=== PATIENT | female | born 1945 | race Caucasian/White ===

== ENCOUNTER → 2016-02-28 | Outpatient (CLI) | payer OTHER ==
[~2016-02-28] MED LIST: BUPR150T7 PO; DABI150C PO; EPP3/2 IM; METO-551 PO; MONT1TAB3 PO; PRLSR20 PO; THY30 PO
[2016-02-28 13:57] LABS: BASO % 0.4 %; BASO ABS # 0.02 K/uL (0-0.2); COMPLETE YES; EOS % 1.3 %; HEMATOCRIT 41.2 % (37-47); IG% 0.2 %; LYMPH % 35.5 %; LYMPH ABS # 1.85 K/uL (1.2-3.4); MEAN CORPUSCULAR HEMOGLOBIN 31.3 pg (25-34); MEAN PLATELET VOLUME 9.5 fL (7.4-10.4); MONO % 10.6 %; PLATELET COUNT 291 K/uL (130-400); RED BLOOD COUNT 4.48 M/uL (4.2-5.4); WHITE BLOOD COUNT 5.21 K/uL (4.8-10.8)
[2016-02-28 14:22] LABS: ALT/SGPT 20 U/L (12-78); AST/SGOT 13 U/L (15-37); BLOOD UREA NITROGEN 12 mg/dl (7-18); CARBON DIOXIDE 31 mmol/L (21-32); CHLORIDE 105 mmol/L (98-107); CREATININE 0.78 mg/dl (0.60-1.20); GLUCOSE 93 mg/dl (70-99); POTASSIUM 3.8 mmol/L (3.5-5.1); SODIUM 143 mmol/L (136-145)
[2016-02-28 14:33] LABS: ALB/GLOB RATIO 1.1 (0.9-2); ALKALINE PHOSPHATASE 78 U/L (45-117); CHOLESTEROL 168 mg/dl (0-200); CHOLESTEROL/HDL RATIO 2.6; HDL CHOLESTEROL 65 mg/dl; LDL CHOLESTEROL CALCULATED 87 mg/dl; TRIGLYCERIDES 78 mg/dl (0-150); VERY LOW DENSITY LIPOPROT CALC 16 mg/dl
== END | disposition home or self-care (01) ==
LOC: C.LAB 13:35
PROVIDERS: ATTEND Nurse Practitioner Family
DX: E03.9 Hypothyroidism, unspecified (principal); I10 Essential (primary) hypertension; I48.91 Unspecified atrial fibrillation; Z13.220 Encounter for screening for lipoid disorders

== ENCOUNTER → 2016-06-25 | Outpatient (CLI) | payer OTHER | END | disposition home or self-care (01) | LOC: C.LAB1850 16:54 | PROVIDERS: ATTEND Nurse Practitioner Family | DX: E03.9 Hypothyroidism, unspecified (principal) ==

== ENCOUNTER → 2017-01-03 | Outpatient (CLI) | payer OTHER ==
[2017-01-03 15:05] LABS: BASO % 0.6 %; BASO ABS # 0.04 K/uL (0-0.2); COMPLETE YES; EOS % 1.2 %; HEMATOCRIT 41.2 % (37-47); IG% 0.2 %; LYMPH % 33.8 %; LYMPH ABS # 2.21 K/uL (1.2-3.4); MEAN CORPUSCULAR HEMOGLOBIN 32.2 pg (25-34); MEAN CORPUSCULAR HGB CONC 33.5 g/dl (32-36); MEAN PLATELET VOLUME 9.4 fL (7.4-10.4); MONO % 8.3 %; NEUT % 55.9 %; PLATELET COUNT 332 K/uL (130-400); RED BLOOD COUNT 4.29 M/uL (4.2-5.4); WHITE BLOOD COUNT 6.54 K/uL (4.8-10.8)
[2017-01-03 15:31] LABS: ALB/GLOB RATIO 0.9 (0.9-2); ALT/SGPT 19 U/L (12-78); AST/SGOT 13 U/L (15-37); BLOOD UREA NITROGEN 15 mg/dl (7-18); BUN/CREATININE RATIO 18.9 (10-20); CALCIUM 9.3 mg/dl (8.5-10.1); CARBON DIOXIDE 29 mmol/L (21-32); CHLORIDE 102 mmol/L (98-107); CREATININE 0.78 mg/dl (0.60-1.20); GLUCOSE 109 mg/dl (70-99); POTASSIUM 4.1 mmol/L (3.5-5.1); SODIUM 139 mmol/L (136-145)
[2017-01-03 15:44] LABS: ALKALINE PHOSPHATASE 107 U/L (45-117)
== END | disposition home or self-care (01) ==
LOC: C.LAB1850 14:24
PROVIDERS: ATTEND Nurse Practitioner Family
DX: E03.9 Hypothyroidism, unspecified (principal); F32.9 Major depressive disorder, single episode, unspecified; I48.91 Unspecified atrial fibrillation; K21.9 Gastro-esophageal reflux disease without esophagitis; J30.9 Allergic rhinitis, unspecified; I10 Essential (primary) hypertension; E55.9 Vitamin D deficiency, unspecified

== ENCOUNTER → 2017-01-03 | Outpatient (CLI) | payer OTHER ==
--- NOTE | 2017-01-03 15:12 | DIAGNOSTIC IMAGING REPORT ---
L-SPINE MIN 4 VIEWS ROUTINE CLINICAL HISTORY: 71 years-old Female presenting with M54.5 Lower back [id number]. TECHNIQUE: Frontal, bilateral oblique, lateral, and coned in lateral views of the lumbar spine were obtained. COMPARISON: Correlation made to 09/22/2006 CT. FINDINGS: Levoscoliotic curvature of the lumbar spine centered at L2-3. Otherwise normal lumbar lordosis. Vertebral bodies maintain normal height. Intervertebral disc spaces grossly maintained allowing for eccentric height loss secondary to scoliosis. Mild multilevel degenerative changes. No radiographic evidence of fracture or subluxation. Osseous neural foraminal narrowing is difficult to assess for by radiograph secondary to scoliosis. Nonobstructive bowel gas pattern. IMPRESSION: Levoscoliotic curvature of the lumbar spine. Electronically signed by: Ravindra Bailey M.D. 01/03/2017 3:10 PM Dictated Date/Time: 01/03/2017 3:07 PM
== END | disposition home or self-care (01) ==
LOC: C.RAD1850 14:42
PROVIDERS: ATTEND Nurse Practitioner Family
DX: M54.5 Low back pain (principal); M41.9 Scoliosis, unspecified

== ENCOUNTER → 2017-01-19 | Outpatient (CLI) | payer OTHER ==
--- NOTE | 2017-01-19 07:56 | DIAGNOSTIC IMAGING REPORT ---
LUMBAR SPINE W/O CONTRAST CLINICAL HISTORY: 71 years-old Female presenting with M54.5 Low back [id number]. TECHNIQUE: Multisequence, multiplanar MR imaging of the lumbar spine was performed without the use of intravenous contrast. IV contrast: None. COMPARISON: Plain radiographs of the lumbar spine from 01/03/2017. FINDINGS: Localizer images: Unremarkable. Levoscoliotic curvature of the lumbar spine centered at L2-3. Slightly exaggerated lumbar lordosis. Mild vertebral body height loss anteriorly at T12, which is slightly progressed since the prior radiograph. The T12 vertebral body demonstrates small amount of fluid associated with the superior endplate depression as well as diffuse bony edema throughout the vertebral body. The remainder of the vertebral bodies demonstrate normal height, alignment, bone marrow signal intensity. Prominent Schmorl's node noted at the superior endplate of L1. Recommend 3 disc noted at L5-S1 with transitional lumbosacral anatomy. Please refer to the images for labeling of the levels. Diffuse intervertebral disc desiccation noted. Minimal fluid within the L1-2 disc space evident without adjacent endplate edema, likely degenerative in etiology. Multilevel degenerative changes further detailed below: L1 to: Mild facet arthropathy with mild right neural foraminal narrowing. No significant spinal canal narrowing. L2-3: Mild facet arthropathy with moderate right neural foraminal narrowing. No second spinal canal narrowing. L3-4: Facet arthropathy and ligamentum flavum thickening result in severe right and moderate left neural foraminal narrowing. L4-5: Disc bulge, facet arthropathy, and ligamentum flavum thickening result in near complete circumferential effacement of CSF. Moderate right and severe left neural foraminal narrowing. L5-S1: No significant spinal canal or neural foraminal narrowing. Spinal cord ends at the inferior endplate of L1. Cauda equina crowding noted diffusely but most severe at L4-5. Paraspinal musculature demonstrates fatty atrophy. Nonspecific superficial subcutaneous edema in the lumbar region. IMPRESSION: 1. Levoscoliotic curvature of the lumbar spine with multilevel degenerative changes resulting in varying degrees of multilevel neural foraminal narrowing most severe at L3-4 at L4-5 further detailed above. Spinal stenosis most severe at L4-5. No commencing evidence of cauda equina impingement. 2. 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 Electronically signed by: Ravindra Bailey M.D. 01/19/2017 7:54 AM Dictated Date/Time: 01/19/2017 7:44 AM
== END | disposition home or self-care (01) ==
LOC: C.MRI 06:44
PROVIDERS: ATTEND Nurse Practitioner Family
DX: M54.5 Low back pain (principal)

== ENCOUNTER → 2017-05-06 | Outpatient (CLI) | payer OTHER ==
--- NOTE | 2017-05-06 09:09 | DIAGNOSTIC IMAGING REPORT ---
GALLBLADDER-ABD LIMITED CLINICAL HISTORY: 71 years-old Female presenting with R10.11 Abdominal pain, acute, right upper [id number]. TECHNIQUE: Real-time grayscale and limited color Doppler ultrasound imaging of the abdomen limited to the right upper quadrant was performed. COMPARISON: CT from 2006. FINDINGS: Image quality slightly degraded by patient body habitus. This is not significantly limit diagnostic sensitivity. Pancreas: Visualized portions of the pancreatic head and body normal. Liver: Normal echogenicity and echotexture. The liver measures 13.8 cm in maximal sagittal dimension. No sonographic evidence of hepatic mass. Main portal vein patent with normal directional flow. Biliary: No intrahepatic biliary ductal dilatation. Common bile duct measures up to 4 mm in diameter. Gallbladder: No evidence of gallstones, gallbladder wall thickening, gallbladder distention, or pericholecystic fluid or inflammatory change. Right kidney: Normal in appearance. No hydronephrosis. Ascites: None. IMPRESSION: No cholelithiasis or biliary ductal dilatation. Electronically signed by: Ravindra Bailey M.D. 05/06/2017 9:07 AM Dictated Date/Time: 05/06/2017 9:06 AM
== END | disposition home or self-care (01) ==
LOC: C.ULTR 08:38
PROVIDERS: ATTEND Nurse Practitioner Family
DX: R10.11 Right upper quadrant pain (principal)

== ENCOUNTER → 2017-05-17 | Outpatient (CLI) | payer OTHER ==
[~2017-05-17] MED LIST changes: +SINCALIDE INJ 2 MCG in SODIUM CHLORIDE 0.9% 100ML 100 ML IV ONE
--- NOTE | 2017-05-17 12:59 | DIAGNOSTIC IMAGING REPORT ---
NUCLEAR MEDICINE HEPATOBILIARY SCAN WITH GALLBLADDER EJECTION FRACTION CLINICAL HISTORY: Gastroesophageal reflux disease. COMPARISON: Right upper quadrant ultrasound May 06, 2017. TECHNIQUE: 5.6 mCi of technetium 99m Choletec IV was injected at 10:55 AM on May 17, 2017. Immediately following injection, imaging of the abdomen was carried out for 60 minutes in the anterior projection. At this time, 2 mcg of Sincalide was injected IV as per protocol. Imaging was performed for an additional 45 minutes to estimate a gallbladder ejection fraction. FINDINGS: Hepatic uptake of radiotracer is prompt and homogeneous. Activity is first identified within the common bile duct at 10 minutes and the gallbladder 15 minutes. Minimal small bowel activity is noted at 60 minutes. Following injection of sincalide, there was normal gallbladder emptying with an ejection fraction estimated at 96%. Normal is greater than 30-35%. IMPRESSION: 1. No evidence of acute or chronic cholecystitis. 2. Borderline delayed visualization of small bowel activity. This is likely within normal limits however this finding can be due to spasm, sphincter dysfunction or partial common bile duct obstruction and could be correlated with liver function tests. 3. Normal gallbladder ejection fraction. Electronically signed by: Deuce Latif M.D. 05/17/2017 12:58 PM Dictated Date/Time: 05/17/2017 12:55 PM
== END | disposition home or self-care (01) ==
LOC: C.NUCL 10:38
PROVIDERS: ATTEND Nurse Practitioner Family
DX: K21.9 Gastro-esophageal reflux disease without esophagitis (principal)

== ENCOUNTER → 2017-05-24 | Outpatient (CLI) | payer OTHER ==
[~2017-05-24] MED LIST changes: -SINCALIDE INJ 2 MCG in SODIUM CHLORIDE 0.9% 100ML 100 ML IV ONE
[2017-05-24 18:04] LABS: BLOOD UREA NITROGEN 13 mg/dl (7-18); CALCIUM 9.3 mg/dl (8.5-10.1); CARBON DIOXIDE 30 mmol/L (21-32); CREATININE 0.66 mg/dl (0.60-1.20); GLUCOSE 90 mg/dl (70-99); POTASSIUM 3.6 mmol/L (3.5-5.1); SODIUM 142 mmol/L (136-145)
== END | disposition home or self-care (01) ==
LOC: C.LAB1850 16:16
PROVIDERS: ATTEND Internal Medicine Interventional Cardiology
DX: Z86.79 Personal history of other diseases of the circulatory system (principal); I48.91 Unspecified atrial fibrillation

== ENCOUNTER → 2017-05-24 | Outpatient (CLI) | payer OTHER | END | disposition home or self-care (01) | LOC: C.MAMM 14:19 | PROVIDERS: ATTEND Nurse Practitioner Family | DX: M81.0 Age-related osteoporosis without current pathological fracture (principal) ==

== ENCOUNTER → 2017-06-03 | Outpatient (CLI) | payer OTHER ==
[~2017-06-03] MED LIST changes: +REGADENOSON 0.4 MG/5 ML SYR ONE
--- NOTE | 2017-06-04 00:02 | MYOCARDIAL PERFUSION SCAN ---
NUCLEAR STRESS TEST STUDY REQUESTED BY: Jose Carlos Solomon MD PRIMARY CARE PHYSICIAN: Jhony Ramires. STUDY TITLE: One-day nuclear medicine technetium-99m Cardiolite myocardial perfusion scan. INDICATION: Exertional dyspnea. EKG: Sinus rhythm, ventricular rate of 61, no significant ST abnormalities at baseline. STRESS EKG: Heart rate with Lexiscan monique from 61 to 85 representing 57% of maximum predicted heart rate. Maximum blood pressure was 191/83. There were no Lexiscan EKG changes or arrhythmias. TECHNIQUE: For the stress portion of the study, 10.7 mCi of technetium-99m Cardiolite IV was injected at 9:38 on 06/03/2017. Thirty minutes following the injection, imaging of the heart was performed in multiple projections. For the rest portion of the study, 33 mCi of technetium-99m Cardiolite was injected IV at 11:12. One hour following the injection, imaging of the heart was performed in the same projections. FINDINGS: The rotating raw images were reviewed in detail. There was minimal gut and liver uptake that was removed from the inferior imaging border of the heart. There was mild lateral breast shadow both on stress and rest. There was mild diaphragmatic attenuation noted both on stress and rest. There was no significant extracardiac pathologic uptake. The short axis, vertical long axis, horizontal long axis images were reviewed in detail. There was a small subtle base to mid largely fixed inferior lateral perfusion defect most consistent with diaphragmatic attenuation. Otherwise, myocardial perfusion was normal with no significant ischemia noted. LV size was normal with an end-diastolic volume of 89 mL. Calculated ejection fraction was 70% with no regional wall motion abnormalities. IMPRESSION: 1. Normal myocardial perfusion study. No significant Lexiscan-induced ischemia. 2. Normal left ventricular size and function. EF 70% with no regional wall motion abnormalities. 3. Nondiagnostic stress EKG due to inability to reach target heart rate with Lexiscan. [facility]
== END | disposition home or self-care (01) ==
LOC: C.NUCL 08:51
PROVIDERS: ATTEND Internal Medicine Interventional Cardiology
DX: I10 Essential (primary) hypertension (principal); R06.09 Other forms of dyspnea

== ENCOUNTER → 2017-09-26 | Day surgery (SDC) | payer OTHER ==
[2017-09-20 10:32] VITALS: Ht 162.6 cm; Wt 97.7 kg
[~2017-09-26] VITALS: Ht 162.6 cm; Wt 97.7 kg
[~2017-09-26] MED LIST changes: +BUDE180I INH; +CHOL1TAB42 PO; +ERGO500037 PO; +LIDOCAINE HCL 2% 2 ML VIAL (20MG/ML) ONE; +LISI-729 PO; +MIDAZOLAM HCL 1 MG/ML 2ML VIAL ONE; +MULT-506 PO; +MULTCAP33 PO; +NYST1POW7 TOP; +ONDANSETRON INJ 2 MG/ML 2 ML VIAL ONE; +PROPOFOL IV EMULSION 10 MG/ML 20 ML VIAL ONE; -REGADENOSON 0.4 MG/5 ML SYR ONE; +SODIUM CHLORIDE 0.9% 500ML 500 ML IV ONE; +THY/30 PO; +VNTHFA/IN INH; +ZINC20OI TOP
--- NOTE | 2017-09-26 08:28 | Endo History and Physical ---
History & Physical Date of Service: Sep 26, 2017. Chief Complaint: REFLUX, RUQ PAIN/ HX OF POLYPS Referring Physician: FRAN WILLETT History of Present Illness 72 yo CF who presents for EGD and Colonoscopy secondary to GERD, RUQ abdominal pain and history of polyps. Past Surgical History Hx Cardiac Surgery: No Hx Internal Defibrillator: No Hx Pacemaker: No Hx Abdominal Surgery: Yes (HIATAL HERNIA SX, TUMMY TUCK, BILT BREAST IMPLANTS, TUBAL LIGATION) Hx of Implantable Prosthesis: No Hx Post-Op Nausea and Vomiting: No Hx Cancer Surgery: No Hx Thoracic Surgery: No Hx Orthopedic: No Hx Urinary Tract Surgery: No Family History Colon CA Social History Smoking Status: Former Smoker Hx Substance Use: No Hx Alcohol Use: Yes (OCCASIONAL WINE OR BEER) Allergies Coded Allergies: Wasp (Verified Allergy, Severe, ANAPHYLAXIS, 09/20/17) Yellow Jacket (Verified Allergy, Severe, ANAPHYLAXIS, 09/20/17) Sulfa Drugs (Verified Allergy, Unknown, UNKNOWN, 09/20/17) Current Medications Reported Home Medications Medications Dose Route/Sig Max Daily Dose Days Date Category Nystatin (Nystatin (Topical)) 1 Pow Pow 1 Appln TOP DIRECTED 09/20/17 Reported Preservision Areds (Multiple Vitamins W/ Minerals) 1 Cap Cap 1 Cap PO BID 09/20/17 Reported Zinc Oxide (Zinc Oxide (Topical)) 20 % Oin 1 Appln TOP DIRECTED 09/20/17 Reported Ventolin Hfa (Albuterol) 200 Puffs/46781 Mcg Aers 1-2 Puffs INH Q4 PRN 09/20/17 Reported Pulmicort Flexhaler (Budesonide (Inhalation)) 180 Mcg/Act Inh 2 Puffs INH BID 09/20/17 Reported Vitamin D 04566 Unit (Ergocalciferol) 50,000 Unit Cap 50,000 Unit PO WK 09/20/17 Reported Vitamin D (Cholecalciferol) 5,000 Unit Tab 1 Tab PO DAILY 09/20/17 Reported Prinivil (Lisinopril) 5 Mg Tab 5 Mg PO QPM 09/20/17 Reported Orange Thyroid (Thyroid) 30 Mg Tab 2 Tab PO Q2D 90 09/20/17 Reported Orange Thyroid (Thyroid) 30 Mg Tab 30 Mg PO Q2D 09/29/14 Reported Pradaxa (Dabigatran Etexilate Mesylate) 150 Mg Cap 150 Mg PO BID 08/26/11 Reported Lopressor (Metoprolol Tartrate) 50 Mg Tab 50 Mg PO BID 08/26/11 Reported Epipen (Epinephrine) 0.3 Mg/0.3 Ml Inj 0.3 Mg IM UD 08/26/11 Reported Wellbutrin Sr (Bupropion Hcl) 150 Mg Tab 150 Mg PO BID 08/26/11 Reported Prilosec (Omeprazole) 20 Mg Capcr 20 Mg PO DAILY 08/26/11 Reported Singulair (Montelukast Sodium) 10 Mg Tab 10 Mg PO DAILY 08/26/11 Reported Vital Signs Weight (Kilograms): 97.73 Height (Feet): 5 Height (Inches): 4 Date Time Temp Pulse Resp B/P (MAP) Pulse Ox O2 Delivery O2 Flow Rate FiO2 09/26/17 08:23 36 68 18 153/75 (101) 98 Room Air Physical Exam General Appearance: WD/WN, no apparent distress Respiratory/Chest: Auscultation: breath sounds normal Cardiovascular: Heart Auscultation: RRR Abdomen: Bowel Sounds: normal Inspection & Palpation: soft, non-distended, no tenderness, guarding & rebound Assessment and Plan Assessment: 72 yo CF who presents for EGD and Colonoscopy secondary to GERD, RUQ abdominal pain and history of polyps. Plan: Proceed with EGD and Colonoscopy.
--- NOTE | 2017-09-26 09:12 | Discharge Instructions ---
Endoscopy Patient Instructions Date / Procedure(s) Performed Sep 26, 2017. Colonoscopy, EGD Allergy Information Coded Allergies: Wasp (Verified Allergy, Severe, ANAPHYLAXIS, 09/20/17) Yellow Jacket (Verified Allergy, Severe, ANAPHYLAXIS, 09/20/17) Sulfa Drugs (Verified Allergy, Unknown, UNKNOWN, 09/20/17) Discharge Date / Findings Sep 26, 2017. EGD: Gastric antrum biopsies, Hiatal hernia Colonoscopy: Colon polyp (not collected), Diverticulosis, Internal hemorrhoids Medication Instructions Stopped Medication(s): PRADAXA OK to resume all medications today as prescribed Reported Home Medications Medications Dose Route/Sig Max Daily Dose Days Date Category Nystatin (Nystatin (Topical)) 1 Pow Pow 1 Appln TOP DIRECTED 09/20/17 Reported Preservision Areds (Multiple Vitamins W/ Minerals) 1 Cap Cap 1 Cap PO BID 09/20/17 Reported Zinc Oxide (Zinc Oxide (Topical)) 20 % Oin 1 Appln TOP DIRECTED 09/20/17 Reported Ventolin Hfa (Albuterol) 200 Puffs/66801 Mcg Aers 1-2 Puffs INH Q4 PRN 09/20/17 Reported Pulmicort Flexhaler (Budesonide (Inhalation)) 180 Mcg/Act Inh 2 Puffs INH BID 09/20/17 Reported Vitamin D 94270 Unit (Ergocalciferol) 50,000 Unit Cap 50,000 Unit PO WK 09/20/17 Reported Vitamin D (Cholecalciferol) 5,000 Unit Tab 1 Tab PO DAILY 09/20/17 Reported Prinivil (Lisinopril) 5 Mg Tab 5 Mg PO QPM 09/20/17 Reported Charlotte Thyroid (Thyroid) 30 Mg Tab 2 Tab PO Q2D 90 09/20/17 Reported Charlotte Thyroid (Thyroid) 30 Mg Tab 30 Mg PO Q2D 09/29/14 Reported Pradaxa (Dabigatran Etexilate Mesylate) 150 Mg Cap 150 Mg PO BID 08/26/11 Reported Lopressor (Metoprolol Tartrate) 50 Mg Tab 50 Mg PO BID 08/26/11 Reported Epipen (Epinephrine) 0.3 Mg/0.3 Ml Inj 0.3 Mg IM UD 08/26/11 Reported Wellbutrin Sr (Bupropion Hcl) 150 Mg Tab 150 Mg PO BID 08/26/11 Reported Prilosec (Omeprazole) 20 Mg Capcr 20 Mg PO DAILY 08/26/11 Reported Singulair (Montelukast Sodium) 10 Mg Tab 10 Mg PO DAILY 08/26/11 Reported Provider Instructions Activity Restrictions - No exercising or heavy lifting for 24 hours. - Do not drink alcohol the day of the procedure. - Do not drive a car or operate machinery until the day after the procedure. - Do not make any important decisions or sign important papers in 24 hours after the procedure. Following Day: - Return to full activity which may include returning to work/school. Diet Start your diet with liquids and light foods (jello, soup, juice, toast). Then eat your usual diet if not nauseated. Treatment For Common After Affects For mild abdominal pain, bloating, or excessive gas: - Rest - Eat lightly - Lie on right side Follow-Up Information Follow-up with FRAN WILLETT as scheduled Anesthesia Information What You Should Know You have had a procedure that required some medicine to reduce anxiety and discomfort. This treatment is called moderate sedation. After receiving the treatment, you may be sleepy, but you will be able to breathe on your own. The effects of the treatment may last for several hours. Follow these instructions along with Activity/Diet recommendations noted above: * Do NOT do anything where dizziness or clumsiness would be dangerous. * Rest quietly at home today, then you can be up and about tomorrow. * Have a responsible person stay with you the rest of today. * You may have had an I.V. today. If so, you may take the dressing off later today. Recommendations Call your doctor if: * Trouble breathing * Continuous vomiting for more than 24 hours * Temperature above 101 degrees * Severe abdominal pain or bloating * Pain not relieved by pain medicine ordered * There is increased drainage or redness from any incision * A large amount of rectal bleeding greater than 2-3 tablespoons. (If you had a polyp/s removed or have hemorrhoids, a small amount of blood - from the rectum is to be expected.) * You have any unanswered questions or concerns. IN THE EVENT OF A SERIOUS EMERGENCY, GO TO THE NEAREST EMERGENCY ROOM Your discharge instructions were prepared by provider Drew Ceron. Patient Instructions Signature Page Rosalinda Vergara Patient (or Guardian) Signature/Date: I have read and understand the instructions given to me by my caregivers. Caregiver/RN/Doctor Signature/Date: The above-named patient and/or guardian has received patient instructions on this date. + Original Patient Signature Page (only) stays with chart. Please make copy for patient.
--- NOTE | 2017-09-26 09:18 | Anesthesiology Progress Note ---
Anesthesia Post Op Note Date & Time Sep 26, 2017 at 09:18 Vital Signs Pain Intensity: 0 Vital Signs Past 12 Hours Date Time Temp Pulse Resp B/P (MAP) Pulse Ox O2 Delivery O2 Flow Rate FiO2 09/26/17 09:04 68 16 91/59 (70) 98 Room Air 09/26/17 08:23 36 68 18 153/75 (101) 98 Room Air Notes Mental Status: alert / awake / arousable, participated in evaluation Pt Amnestic to Procedure: Yes Nausea / Vomiting: adequately controlled Pain: adequately controlled Airway Patency, RR, SpO2: stable & adequate BP & HR: stable & adequate Hydration State: stable & adequate Anesthetic Complications: no major complications apparent
--- NOTE | 2017-09-26 09:18 | GI REPORT ---
Patient Name: Rosalinda Vergara Procedure Date: 09/26/2017 8:33 AM Date of : 1945 Admit Type: Outpatient Age: 72 Gender: Female Attending MD: Drew Ceron DO Procedure: Colonoscopy Providers: Drew Ceron DO Referring MD: Jhony Ramires Indications: Screening for colorectal malignant neoplasm Medicines: Monitored Anesthesia Care Complications: No immediate complications. Estimated Blood Loss: Estimated blood loss: none. Procedure: Pre-Anesthesia Assessment: - Prior to the procedure, a History and Physical was performed, and patient medications and allergies were reviewed. The patient's tolerance of previous anesthesia was also reviewed. The risks and benefits of the procedure and the sedation options and risks were discussed with the patient. All questions were answered, and informed consent was obtained. Prior Anticoagulants: The patient has taken Pradaxa (dabigatran), last dose was 4 days prior to procedure. ASA Grade Assessment: III - A patient with severe systemic disease. After reviewing the risks and benefits, the patient was deemed in satisfactory condition to undergo the procedure. After I obtained informed consent, the scope was passed under direct vision. Throughout the procedure, the patient's blood pressure, pulse, and oxygen saturations were monitored continuously. The scope was introduced through the anus and advanced to the terminal ileum. The colonoscopy was performed without difficulty. The patient tolerated the procedure well. The quality of the bowel preparation was good. The terminal ileum, ileocecal valve, appendiceal orifice, and rectum were photographed. Findings: The perianal and digital rectal examinations were normal. A 3 mm polyp was found in the transverse colon. The polyp was sessile. The polyp was removed with a cold snare. Resection was complete, but the polyp tissue was not retrieved. Multiple small-mouthed diverticula were found in the sigmoid colon. Non-bleeding internal hemorrhoids were found during retroflexion. The hemorrhoids were small. Impression: - One 3 mm polyp in the transverse colon, removed with a cold snare. Complete resection. Polyp tissue not retrieved. - Diverticulosis in the sigmoid colon. - Non-bleeding internal hemorrhoids. Recommendation: - Resume previous diet. - Continue present medications. - No repeat colonoscopy due to age and the absence of advanced adenomas. - Return to primary care physician as previously scheduled. Drew Ceron DO 09/26/2017 9:18:09 AM This report has been signed electronically. Note Initiated On: 09/26/2017 8:33 AM Number of Addenda: 0 I attest to the content of the Intraoperative Record and orders documented therein, exceptions below {[id number]}
--- NOTE | 2017-09-26 09:22 | GI REPORT ---
Patient Name: Rosalinda Vergara Procedure Date: 09/26/2017 8:34 AM Date of : 1945 Admit Type: Outpatient Age: 72 Gender: Female Attending MD: Drew Ceron DO Procedure: Upper GI endoscopy Providers: Drew Ceron DO Referring MD: Jhony Ramires Indications: Abdominal pain in the right upper quadrant, Gastro-esophageal reflux disease Medicines: Monitored Anesthesia Care Complications: No immediate complications. Estimated Blood Loss: Estimated blood loss: none. Procedure: Pre-Anesthesia Assessment: - Prior to the procedure, a History and Physical was performed, and patient medications and allergies were reviewed. The patient's tolerance of previous anesthesia was also reviewed. The risks and benefits of the procedure and the sedation options and risks were discussed with the patient. All questions were answered, and informed consent was obtained. Prior Anticoagulants: The patient has taken Pradaxa (dabigatran), last dose was 4 days prior to procedure. ASA Grade Assessment: III - A patient with severe systemic disease. After reviewing the risks and benefits, the patient was deemed in satisfactory condition to undergo the procedure. After obtaining informed consent, the endoscope was passed under direct vision. Throughout the procedure, the patient's blood pressure, pulse, and oxygen saturations were monitored continuously. The scope was introduced through the mouth, and advanced to second part of duodenum. After obtaining informed consent, the endoscope was passed under direct vision. Throughout the procedure, the patient's blood pressure, pulse, and oxygen saturations were monitored continuously.The upper GI endoscopy was accomplished without difficulty. The patient tolerated the procedure well. Findings: The examined esophagus was normal. A medium-sized hiatal hernia was present. Biopsies were taken with a cold forceps in the gastric antrum for Helicobacter pylori testing. The examined duodenum was normal. Impression: - Normal esophagus. - Medium-sized hiatal hernia. - Normal examined duodenum. - Biopsies were taken with a cold forceps for Helicobacter pylori testing. Recommendation: - Resume previous diet. - Continue present medications. - Await pathology results. - Return to primary care physician as previously scheduled. Drew Ceron DO 09/26/2017 9:22:15 AM This report has been signed electronically. Note Initiated On: 09/26/2017 8:34 AM Number of Addenda: 0 I attest to the content of the Intraoperative Record and orders documented therein, exceptions below {[id number]}
[2017-09-26 09:34] VITALS: BP 145/73; PULSE 62; O2SAT 98
== END | disposition home or self-care (01) ==
LOC: C.GI 07:42
PROVIDERS: ATTEND Internal Medicine
DX: K21.9 Gastro-esophageal reflux disease without esophagitis (principal); R10.11 Right upper quadrant pain; K44.9 Diaphragmatic hernia without obstruction or gangrene; J44.9 Chronic obstructive pulmonary disease, unspecified; I10 Essential (primary) hypertension; E78.5 Hyperlipidemia, unspecified; I48.91 Unspecified atrial fibrillation; M19.90 Unspecified osteoarthritis, unspecified site; E03.9 Hypothyroidism, unspecified; F41.9 Anxiety disorder, unspecified; F32.9 Major depressive disorder, single episode, unspecified; Z87.891 Personal history of nicotine dependence; Z88.2 Allergy status to sulfonamides; Z80.0 Family history of malignant neoplasm of digestive organs

== ENCOUNTER 2023-01-11 20:05 | Inpatient (IN) ==
--- NOTE | 2023-01-11 20:26 | Emergency Department Note ---
History of Present Illness General Chief complaint: Ankle Pain Stated complaint: FALL, RIGHT ANKLE PAIN Time Seen by Provider: 01/11/23 20:06 History of Present Illness Maximum Pain Intensity: 7 This is a 77-year-old female that presents to the emergency department via EMS with complaints of "fall, right ankle pain". Patient notes earlier today she slipped as it was wet outside and raining around 10 AM. She notes that she injured the right lower extremity. She notes bruising to the right foot/toes. She was doing okay throughout the day but then notes trouble walking on the right lower extremity therefore patient called and EMS brought the patient here for further assessment. She denies striking the head or loss of consciousness. However, she does note that she has chronic tinnitus that seem to worsen perhaps a little bit following the fall today. She is currently anticoagulated on Eliquis noting history of atrial fibrillation. Home Medications Medication Instructions Recorded Confirmed Type cholecalciferol (vitamin D3) 125 5,000 units PO DAILY 10/31/18 01/12/23 History mcg (5,000 unit) capsule calcium carbonate 600 mg calcium 600 mg PO DAILY 11/24/18 01/12/23 History (1,500 mg) tablet bupropion HCl 150 mg tablet,12 hr 150 mg PO BID #180 ea 06/14/22 01/12/23 Rx sustained-release escitalopram oxalate 10 mg tablet 10 mg PO DAILY #90 tabs 06/14/22 01/12/23 Rx lisinopril 5 mg tablet 5 mg PO DAILY #90 tabs 06/14/22 01/12/23 Rx metoprolol tartrate 100 mg tablet 100 mg PO BID #180 tabs 06/14/22 01/12/23 Rx omeprazole 20 mg capsule,delayed 20 mg PO DAILY #90 caps 06/14/22 01/12/23 Rx release apixaban 5 mg tablet (Eliquis) 5 mg PO BID #180 tabs 08/30/22 01/12/23 Rx budesonide 180 mcg/actuation 2 inh inhalation BID #1 ea 11/04/22 01/12/23 Rx breath activated powder inhaler (Pulmicort Flexhaler) epinephrine 0.3 mg/0.3 mL 0.3 mg (0.3 mL) IM Q10M PRN 11/04/22 01/12/23 Rx injection, auto-injector anaphylaxis #2 ea montelukast 10 mg tablet 10 mg PO DAILY #90 tabs 11/04/22 01/12/23 Rx diclofenac sodium 1 % topical gel 4 g topical QID PRN Pain 01/12/23 01/12/23 History levothyroxine 112 mcg tablet 112 mcg PO DAILYBB 01/12/23 01/12/23 History multivitamin 1 tab PO DAILY 01/12/23 01/12/23 History Allergies Allergy/AdvReac Type Severity Reaction Status Date / Time hornet venom Allergy Severe ANAPHYLAXIS Verified 01/12/23 01:08 Sulfa (Sulfonamide Allergy Unknown UNKNOWN Verified 01/12/23 01:08 Antibiotics) bee venom protein (honey bee) AdvReac Severe Anaphylaxis--YELLOW Verified 01/12/23 01:08 JACKETS & HORNETS Past Med/Surg History Medical History (Updated 01/12/23 @ 17:05 by Lio Ramachandran DO) History of mitral valve disease Vitamin D deficiency Venous insufficiency Tricompartmental disease of knee Osteoporosis with fracture Mineral deficiency Hypothyroidism Hypomagnesemia Hypertension Gastroesophageal reflux disease Extrinsic asthma Edema Depression Chronic diarrhea Atrial fibrillation Anxiety disorder Allergic rhinitis Abnormal mammography Surgical History H/O breast surgery S/P tubal ligation S/P abdominoplasty History of repair of hiatal hernia Family History Father Colorectal cancer Other Osteoporosis Denies family history of Ovarian cancer Prostate cancer Crohn's disease Myocardial infarction Breast cancer Social History Smoking Status: Never smoker Tobacco Type: Cigarettes Age Started Using Tobacco: 18; Second Hand Exposure: No; Do You Dip or Chew Tobacco: No; Hx Alcohol Use: No Hx Substance Use: No Preferred Language: [place] Communication Ability: Effective Visual Impairment: No Limitations Hearing Ability: Normal Apprentice Instrument Technician Required: No Beliefs That Will Affect Care: None marital status: Current Living Situation: Spouse current occupational status: retired current occupation: LABOROR How many Children do You have: 0 Feels Safe at Home: Yes Safety Concerns: Feels Safe At This Time Childhood Exposure to Second-Hand Smoke: Yes Diet: regular Diet Comment: regular Dental Care, Regularly: No Physical Activity Frequency: Does not Exercise Seatbelt Use: always Sunscreen Use: Yes Assistive Devices: Cane Review of Systems A total of 10 systems reviewed and were otherwise negative Physical Exam Vital Signs Vital Signs - 24 hr 01/11/23 20:13 01/11/23 20:13 01/12/23 00:00 Temperature 37.1 C Temperature Source Oral Oral Pulse Rate 93 H Pulse Rate [Finger] 94 H Pulse Rhythm [Finger] Regular Pulse Strength [Finger] Normal Respiratory Rate 15 18 Respiratory Effort / Characteristics Non-Labored Spontaneous Respiratory Depth Normal Respiratory Pattern Regular Blood Pressure 164/69 H Blood Pressure [Right Arm] 159/91 H Blood Pressure Mean 100 Blood Pressure Mean [Right Arm] 113 Blood Pressure Position [Right Arm] Lying Pulse Oximetry 95 92 Oxygen Delivery Method Room Air Room Air Sepsis Recent Fever Within 48 Hours No Sepsis New/Unexplained Change in Mental Status N/A Sepsis Action Taken by Nursing No Action Required 01/12/23 02:00 Temperature Temperature Source Pulse Rate Pulse Rate [Finger] 72 Pulse Rhythm [Finger] Regular Pulse Strength [Finger] Normal Respiratory Rate 18 Respiratory Effort / Characteristics Non-Labored Spontaneous Respiratory Depth Normal Respiratory Pattern Regular Blood Pressure Blood Pressure [Right Arm] 151/96 H Blood Pressure Mean Blood Pressure Mean [Right Arm] 114 Blood Pressure Position [Right Arm] Lying Pulse Oximetry 93 Oxygen Delivery Method Room Air Sepsis Recent Fever Within 48 Hours Sepsis New/Unexplained Change in Mental Status Sepsis Action Taken by Nursing VITAL SIGNS - Vital signs and nursing notes were reviewed. Hypertensive, otherwise stable. GENERAL - 77-year-old female appearing her stated age who is in no acute distress. Communicates well with provider and answers questions appropriately. SKIN -circumferential and diffuse edema throughout the right foot, right ankle and right distal tibia/fib region. The right toes have ecchymosis throughout the circumferential as well as the plantar aspect of the right distal foot. Small abrasions to the dorsal toes of the right foot. No deformity. HEAD - NC/AT. EYES - PERRL with EOMI bilaterally. NOSE - Midline and without cyanosis. No epistaxis or purulent drainage noted. MOUTH/OROPHARYNX - Without perioral cyanosis. NECK - Neck with FROM. No nuchal rigidity. LUNGS - CTA CARDIAC - IRR consistent with atrial fibrillation EXTREMITIES - No clubbing or peripheral cyanosis. Right foot, right ankle and right tibia/fib distal TTP noted as well as circumferential edema. +5/5 strength noted in UE/LE bilaterally. NEUROLOGIC - Cranial nerves II through XII grossly intact. Sensory intact to light touch throughout. Right dorsalis pedis pulse within normal limits. Cap refill of all toes of the right foot within normal limits. No open fractures seen. PSYCH - A&Ox3 and cooperates fully with examiner. Pt is very pleasant and interacts well with examiner. Course Administered Medications Apixaban (Apixaban 5 Mg Tablet) 5 mg PO BID CHRISSY Stop: 02/11/23 08:59 Last Admin: 01/12/23 08:47 Dose: 5 mg Documented By: ASTON Bupropion HCl (Bupropion Sr 150 Mg Tabcr) 150 mg PO BID CHRISSY Stop: 02/11/23 08:59 Last Admin: 01/12/23 08:47 Dose: 150 mg Documented By: ASTON Calcium Carbonate (Calcium Carbonate 1250mg Tab) 1,250 mg PO DAILY CHRISSY Stop: 02/11/23 08:59 Last Admin: 01/12/23 08:47 Dose: 1,250 mg Documented By: ASTON Escitalopram Oxalate (Escitalopram Oxalate 10 Mg Tab) 10 mg PO DAILY CHRISSY Stop: 02/11/23 08:59 Last Admin: 01/12/23 08:47 Dose: 10 mg Documented By: ASTON Fluticasone Furoate (Fluticasone Furoate 200mcg 14 Puffs/Inhaler) 1 puffs INH DAILY CHRISSY Stop: 02/11/23 08:59 Last Admin: 01/12/23 09:02 Dose: 1 puffs Documented By: ASTON Levothyroxine Sodium (Levothyroxine Sodium 112 Mcg Tablet) 112 mcg PO DAILYBB CHRISSY Stop: 02/11/23 06:29 Last Admin: 01/12/23 06:38 Dose: 112 mcg Documented By: HAO Lisinopril (Lisinopril 5 Mg Tab) 5 mg PO DAILY CHRISSY Stop: 02/11/23 08:59 Last Admin: 01/12/23 08:47 Dose: 5 mg Documented By: ASTON Metoprolol Tartrate (Metoprolol Tartrate 100 Mg Tab) 100 mg PO BID CHRISSY Stop: 02/11/23 08:59 Last Admin: 01/12/23 08:47 Dose: 100 mg Documented By: ASTON Montelukast Sodium (Montelukast Sodium 10 Mg Tablet) 10 mg PO DAILY CHRISSY Stop: 02/11/23 08:59 Last Admin: 01/12/23 08:47 Dose: 10 mg Documented By: ASTON Multivitamins (Multivitamin Tab) 1 tab PO DAILY CHRISSY Stop: 02/11/23 08:59 Last Admin: 01/12/23 08:47 Dose: 1 tab Documented By: ASTON Pantoprazole Sodium (Pantoprazole 40 Mg Tab) 40 mg PO DAILY CHRISSY Stop: 02/11/23 08:59 Last Admin: 01/12/23 08:47 Dose: 40 mg Documented By: ASTON Vitamin D (Cholecalciferol 5,000 Units 125 Mcg Tab) 5,000 units PO DAILY CHRISSY Stop: 02/11/23 08:59 Last Admin: 01/12/23 08:47 Dose: 5,000 units Documented By: ASTON Discontinued Medications Acetaminophen (Acetaminophen 325 Mg Tab) 650 mg PO NOW STA Stop: 01/12/23 01:17 Last Admin: 01/12/23 02:01 Dose: 650 mg Documented By: HAO Bupropion HCl (Bupropion Sr 150 Mg Tabcr) 150 mg PO ONCE ONE Stop: 01/12/23 02:22 Last Admin: 01/12/23 03:24 Dose: 150 mg Documented By: HAO Metoprolol Tartrate (Metoprolol Tartrate 100 Mg Tab) 100 mg PO NOW STA Stop: 01/12/23 02:22 Last Admin: 01/12/23 03:24 Dose: 100 mg Documented By: HAO Medical Decision Making Laboratory Data 01/12/23 04:51 01/12/23 04:51 Lab Results 01/11/23 Range/Units 20:36 WBC 11.33 H (4.8-10.8) K/ul RBC 4.01 L (4.20-5.40) M/uL Hgb 12.3 (12.0-16.0) g/dl Hct 38.0 (37.0-47.0) % MCV 94.8 (80.0-100.0) fL MCH 30.7 (25.0-34.0) pg MCHC 32.4 (32.0-36.0) g/dL RDW Std Deviation 51.3 H (36.4-46.3) fL RDW Coeff of Naila 14.8 H (11.5-14.5) % Plt Count 370 (130-400) K/uL MPV 9.8 (9.4-12.4) fL Immature Gran % (Auto) 0.4 % Neut % (Auto) 77.5 % Lymph % (Auto) 12.9 % [place] % (Auto) 8.4 % Eos % (Auto) 0.2 % Baso % (Auto) 0.6 % Neut # (Auto) 8.78 H (1.40-6.50) K/uL Lymph # (Auto) 1.46 (1.20-3.40) K/uL [place] # (Auto) 0.95 H (0.11-0.59) K/uL Eos # (Auto) 0.02 (0.00-0.50) K/uL Baso # (Auto) 0.07 (0.00-0.20) K/uL Immature Gran # (Auto) 0.05 (0.01-0.20) K/uL PT 13.2 H (9.0-12.0) Seconds INR 1.2 H (0.9-1.1) APTT 29.4 (21.0-31.0) Seconds PTT Ratio 1.0 Sodium 138 (136-145) mmol/L Potassium 4.3 (3.5-5.1) mmol/L Chloride 102 (98-107) mmol/L Carbon Dioxide 31 (21-32) mmol/L Anion Gap 5 (3-11) BUN 12 (6-23) mg/dl Creatinine 0.60 (0.6-1.2) mg/dl Est Cr Clr Drug Dosing 84.8 ml/min Est GFR ( Amer) 100.5 ml/min Est GFR (Non-Af Amer) 86.7 ml/min BUN/Creatinine Ratio 20.0 (10-20) Glucose 139 H (70-99(Fasting)) mg/dl Calcium 9.5 (8.6-10.3) mg/dl Total Bilirubin 1.2 H (0.2-1.0) mg/dl AST 26 (13-39) U/L ALT 12 (7-52) U/L Alkaline Phosphatase 107 H (34-104) U/L Troponin I High Sens 12.0 (0-14) pg/ml Total Protein 6.9 (6.0-8.3) gm/dl Albumin 3.4 (3.4-5.0) gm/dl Globulin 3.5 (2.5-4.0) gm/dl Albumin/Globulin Ratio 1.0 (0.9-2) Imaging Data My Impression: Right foot, ankle, tibia/fib: Per my interpretation Metatarsal fractures are better depicted on same-day CT. Chronic deformity noted of the distal fibula. Demineralized appearance of the bones. No other fractures. No dislocations. Radiologist's Impression: Ankle X-Ray 01/11/23 20:18 XR ankle RT min 3V routine, XR foot RT min 3V routine, XR tibia fibula RT 2V CLINICAL HISTORY: Fall, R leg pain TECHNIQUE: 3 views of the right ankle and 3 views of the right foot, and 2 views of the right tibia and fibula were obtained. Comparison: Comparison is made to ankle CT 01/31/2018 FINDINGS: There are nondisplaced fractures of the base of the second, third, and fourth metatarsals. Extensive joint space narrowing and osteophyte formation are seen in the ankle joint. Chronic deformity of the distal fibula. The ankle mortise is intact. Soft tissue swelling is seen about the ankle. IMPRESSION: Nondisplaced fractures of the base of the second, third, and fourth metatarsals. Extensive degenerative changes as above. ACT 112: Negative or not required by law. Electronically signed by: Benjamin Velez M.D. 01/12/2023 7:06 AM Foot X-Ray 01/11/23 20:18 XR ankle RT min 3V routine, XR foot RT min 3V routine, XR tibia fibula RT 2V CLINICAL HISTORY: Fall, R leg pain TECHNIQUE: 3 views of the right ankle and 3 views of the right foot, and 2 views of the right tibia and fibula were obtained. Comparison: Comparison is made to ankle CT 01/31/2018 FINDINGS: There are nondisplaced fractures of the base of the second, third, and fourth metatarsals. Extensive joint space narrowing and osteophyte formation are seen in the ankle joint. Chronic deformity of the distal fibula. The ankle mortise is intact. Soft tissue swelling is seen about the ankle. IMPRESSION: Nondisplaced fractures of the base of the second, third, and fourth metatarsals. Extensive degenerative changes as above. ACT 112: Negative or not required by law. Electronically signed by: Benjamin Velez M.D. 01/12/2023 7:06 AM Tibia/Fibula X-Ray 01/11/23 20:18 XR ankle RT min 3V routine, XR foot RT min 3V routine, XR tibia fibula RT 2V CLINICAL HISTORY: Fall, R leg pain TECHNIQUE: 3 views of the right ankle and 3 views of the right foot, and 2 views of the right tibia and fibula were obtained. Comparison: Comparison is made to ankle CT 01/31/2018 FINDINGS: There are nondisplaced fractures of the base of the second, third, and fourth metatarsals. Extensive joint space narrowing and osteophyte formation are seen in the ankle joint. Chronic deformity of the distal fibula. The ankle mortise is intact. Soft tissue swelling is seen about the ankle. IMPRESSION: Nondisplaced fractures of the base of the second, third, and fourth metatarsals. Extensive degenerative changes as above. ACT 112: Negative or not required by law. Electronically signed by: Benjamin Velez M.D. 01/12/2023 7:06 AM [facility] Narrative Patient was seen and evaluated as above in room D02. Review was performed of triage nursing notes and vital signs. After obtaining a thorough history and physical examination the above work up was performed. Patient presents today via EMS for evaluation of injury to the right foot status post fall. There is ecchymosis throughout all toes and distal soft tissue overlying the metatarsal regions of the right foot. No break in the integument. Circumferential edema present that tracks into the dorsum of the right foot and right ankle. The patient does not have any open wounds. Options of care were discussed with the patient. She respectfully declined pain medication. X-ray of the tib/fib, ankle and foot were obtained. Metatarsal fracture seen otherwise no fractures or dislocations noted but chronic deformity of the distal fibula. Noting the patient's amount of edema on examination and distribution of swelling CT imaging of the foot was obtained. This reveals nondisplaced fracture of the base of the second, third and fourth metatarsal. This does clinically fit with the patient's presentation. The patient I am concerned is at an elevated risk of fall noting the fractures today and with the elevated fall risk am concerned that she is anticoagulated. She did have a CT image of the head obtained here as well as she is anticoagulated and had a ground-level fall earlier today. Although this was overall reassuring from an acute standpoint, there was a soft tissue lesion seen in the orbit which I reviewed with the patient and ultimately the hospitalist service as she will be admitted noting today's traumatic foot findings leading to ambulatory dysfunction and elevated fall risk in the setting of anticoagulation. I discussed options with the patient in regard to inpatient versus outpatient management. I do believe that she would benefit from further evaluation and management in the inpatient setting. Splinting options discussed with the patient and we will proceed with a low top fracture boot followed by crutches however certainly this could be altered once she is evaluated by orthopedics here in the hospital. Case discussed with the hospitalist service. Please refer to further documentation regarding her stay. Formal radiology report for the x-rays will be provided in the a.m. GCS: 15 In the evaluation and treatment of this patient the following differential diagnoses were entertained: Fracture, dislocation, subluxation, contusion, sprain, strain, among others. Impression & Plan Fall, Atrial fibrillation, Metatarsal fracture Discharge Plan Visit Data Chief Complaint: Ankle Pain Stated Complaint: FALL, RIGHT ANKLE PAIN ED Provider: Suraj Winters ED Midlevel Provider: Twin Mauro Discharge Problem: Fall, Atrial fibrillation, Metatarsal fracture Patient Disposition: Admitted As Inpatient Condition: Good Discharge Instructions Interventions: ED Discharge Assessment Last Done: 01/12/23 03:41 Addendum January 12, 2023 17:05 HPI: The patient is a 77-year-old woman with a pmhx of afib, hypothyroidism, osteoporosis, HTN who presents to the emergency department for evaluation of right ankle pain after having a fall where she slipped when it was wet outside due to rain around 10 AM this morning. She has had pain with walking and so contacted EMS to be brought to emergency department for further assessment. She denies any head strike or loss of consciousness. She is on Eliquis for history of atrial fibrillation. A/P: WBC 11.3 K, nonspecific. H/H and platelets within normal limits. Chemistry without metabolic acidosis. LFTs are unremarkable. Plain films of the tib-fib, ankle and foot were performed and metatarsal fractures were noted. CT of the head negative for acute abnormalities. Nonspecific soft tissue lesion of the left orbit is noted. CT of the foot demonstrates nondisplaced fracture of the base of the second, third and fourth metatarsals. Due to concern for ambulatory dysfunction in the setting of her metatarsal fractures and being on anticoagulation patient was for the hospital service for further management. Splinting with fracture boot for now until evaluated by orthopedics. I was consulted by the Advanced Practice Provider and was substantively involved in the patient's visit.This includes aspects of the HPI, MDM, diagnostic interpretations, and disposition/plan. I discussed the case with the RUSSELL and agree with the findings and plan as documented in RUSSELL Bamat's note.
[2023-01-11 21:07] LABS: Albumin Level 3.4 gm/dl (3.4-5.0); Bilirubin,Total 1.2 mg/dl (0.2-1.0); Calcium 9.5 mg/dl (8.6-10.3); Creatinine Clr Calc Pharmacy 84.8 ml/min; Est GFR (African American) 100.5 ml/min; Est GFR (Non-African American) 86.7 ml/min; Globulin 3.5 gm/dl (2.5-4.0); Potassium 4.3 mmol/L (3.5-5.1); Total Protein 6.9 gm/dl (6.0-8.3)
[2023-01-11 21:17] LABS: INR 1.2 (0.9-1.1); Partial Thromboplastin Time 29.4 Seconds (21.0-31.0); Prothrombin Time 13.2 Seconds (9.0-12.0)
[2023-01-11 22:10] LABS: Basophils # (auto) 0.07 K/uL (0.00-0.20); Basophils % (auto) 0.6 %; Eosinophils # (auto) 0.02 K/uL (0.00-0.50); Eosinophils % (auto) 0.2 %; Hemoglobin 12.3 g/dl (12.0-16.0); Immature Granulocytes # (auto) 0.05 K/uL (0.01-0.20); Immature Granulocytes % (auto) 0.4 %; Lymphocytes # (auto) 1.46 K/uL (1.20-3.40); Lymphocytes % (auto) 12.9 %; Mean Corpuscular Hemoglobin 30.7 pg (25.0-34.0); Mean Corpuscular Hgb Conc 32.4 g/dL (32.0-36.0); Mean Corpuscular Volume 94.8 fL (80.0-100.0); Mean Platelet Volume 9.8 fL (9.4-12.4); Monocytes # (auto) 0.95 K/uL (0.11-0.59); Monocytes % (auto) 8.4 %; Neutrophils # (auto) 8.78 K/uL (1.40-6.50); Neutrophils % (auto) 77.5 %; Platelet Count 370 K/uL (130-400); RDW Coefficient of Variation 14.8 % (11.5-14.5); RDW Standard Deviation 51.3 fL (36.4-46.3); Red Blood Count 4.01 M/uL (4.20-5.40); White Blood Count 11.33 K/ul (4.8-10.8)
--- NOTE | 2023-01-11 22:55 | CT Scan Report ---
Exam(s): CT HEAD Without Contrast EXAM: CT Head Without Intravenous Contrast CLINICAL HISTORY: Reason for exam: Fall. TECHNIQUE: Axial computed tomography images of the head/brain without intravenous contrast. CTDI is 38.17 mGy and DLP is 703.85 mGy-cm. Automated exposure control was utilized for the study. A dose lowering technique was utilized adhering to the principles of ALARA. COMPARISON: Head CT September 29, 2014. FINDINGS: No acute intracranial hemorrhage. No midline shift or mass effect. The territorial gaytan-white matter differentiation is maintained throughout. Age-related cerebral volume loss. Periventricular and subcortical white matter hypoattenuation, consistent with chronic microangiopathy. Soft tissue lesion in the left orbit, measures approximately 1.5 x 0.8 cm. Consider orbit MRI for further evaluation. The calvarium is intact. The visualized paranasal sinuses and mastoid air cells are grossly clear. IMPRESSION: No acute intracranial hemorrhage, midline shift, or mass effect. Soft tissue lesion in the left orbit, measures approximately 1.5 x 0.8 cm. Consider orbit MRI for further evaluation. Electronically signed by: Manjinder Riggs MD 01/11/23 22:54 PM
--- NOTE | 2023-01-12 00:46 | CT Scan Report ---
Exam(s): CT RIGHT FOOT Without Contrast EXAM: CT Right Lower Extremity Without Intravenous Contrast, Foot CLINICAL HISTORY: Reason for exam: R foot pain, edema s/p fall. TECHNIQUE: Axial computed tomography images of the right foot without intravenous contrast. CTDI is 19.7 mGy and DLP is 1.2 mGy-cm. Automated exposure control was utilized for the study. A dose lowering technique was utilized adhering to the principles of ALARA. COMPARISON: No relevant prior studies available. FINDINGS: Bones/joints: Nondisplaced fracture of the base of the second metatarsal. Nondisplaced fracture at the base of the third metatarsal. Nondisplaced fracture at the base of the fourth metatarsal. Moderate- severe degenerative arthropathy. Intact calcaneus and talus. Severe degenerative changes of the tibiotalar joint, subtalar joint, and calcaneocuboid joint. Low she will spur measures 8 mm. Diffuse osseous demineralization. No Lisfranc malalignment. Soft tissues: Unremarkable. No radiopaque foreign body. IMPRESSION: 1. Nondisplaced fracture of the base of the second metatarsal. 2. Nondisplaced fracture at the base of the third metatarsal. 3. Nondisplaced fracture at the base of the fourth metatarsal. Electronically signed by: Manjinder Riggs MD 01/12/23 00:46 AM
[2023-01-12] MEDS ORDERED: ACETAMINOPHEN 325 MG TAB PO STA (01:16)
--- OUTSIDE RECORDS SUMMARY | 2023-01-12 02:13 | External Medical Summary | Summary of Care ---
Author Name Unknown Organization [facility] Address [address] [place] [address] Phone [phone] Care Team Providers Care Cascade Operator Name Role Phone Werneranupama Jhony Gray MARTIN Primary Care Provider Reason for Visit * Reason Onset Date Comments FYI 12/28/2022 Encounter Details Date Type Department Care Team (Late st Contact Info) Description 12/28/2022 Telephone Rheumatology [facility] [email or web address] [place] [address] Dez Barone MD [address] [place] [address] FYI Allergies Active Allergy Reactions Criticality Noted Date Comments Bee Venom 09/26/2018 Sulfa Antibiotics Rash 01/14/2009 documented as of this encounter (statuses as of 12/30/2022) Medications Medication Sig Dispensed Refills Start Date End Date Status PULMICORT FLEXHALER 180 MCG/ACT IN AEPB as needed 0 01/14/2009 Activ e WELLBUTRIN SR 150 MG PO TB12 1 tab daily 0 Active PRILOSEC 20 MG PO CPDR 1 tab daily 0 Active lisinopril (PRINIVIL) 5 MG Tablet 1 daily 0 08/11/2018 Active metoprolol tartrate (LOPRESSOR) 100 MG Tablet 1 twice daily 0 08/11/2018 Active Cholecalciferol (VITAMIN D-3) 5000 units Tablet Take 1 Tablet by mouth in the morning. 0 Active EPINEPHrine, anaphylaxis, (AUTOINJECTOR) 0.3 MG/0.3ML SOAJ Inject 0.3 mg into a large muscle once. For a severe reaction: Inject in outer thigh following instructions on package and go to the Emergency room. 0 Active Montelukast Sodium 10 MG Oral Tablet Take by mouth. 0 Act akilah SF 5000 PLUS 1.1 % cream APPLY A PEA SIZE AMOUNT TO BRUSH YOUR TEETH PREFERABLY BEFORE GOING TO BED. DO NOT EAT, DRINK, OR RINSE MOUTH FOR AT LEAST 30 MINUTES AFTER 3 12/19/2018 Active doxycycline hyclate (VIBRAMYCIN) 50 MG Capsule 0 09/24/2019 Active Escitalopram Oxalate (LEXAPRO) 5 MG Tablet 1 daily 0 09/08/2019 Active Eliquis 5 MG Oral Tablet 1 twice daily 0 08/21/2020 Active Levothyroxine Sodium 100 MCG Oral Tablet (Levoxyl) Take 1 Tablet by mouth in the morning. 1 daily. 0 08/13/2020 Active documented as of this encounter (statuses as of 12/30/2022) Active Problems Problem Noted Date Diagnosed Date Arthritis of carpometacarpal (CMC) joint of both thumbs 10/07/2021 Primary osteoarthritis of right ankle 10/07/2021 ADVANCE DIRECTIVE INFORMATION 01/26/2010 Overview: Patient refused Hypertrophic and atrophic condition of skin 06/2009 BMI 35-39 ISOLATED (SEE ACTUAL BMI) 08/04/2009 Overview: Per Obesity Protocol, #19 Diaphragmatic hernia 01/14/2009 Senile osteoporosis Hypothyroidism GERD (gastroesophageal reflux disease) documented as of this encounter (statuses as of 12/30/2022) Immunizations Name Administration Dates Next Due COVID-19 mRNA, LNP-s, No Pre serve, 2-Dose Series ([employer] 05/10/2020,04/19/2020 Pneumococcal Conjugate Vacc, 13 Valent (Prevnar) 12/29/2016 Pneumococcal Polysaccharide PPV23 (Pneumovax) 03/08/2018 Season Influenza, Quad, PF, Adjuvanted, 65+ Yrs, IM (FLUAD) 12/28/2022 Seasonal Influenza Virus Vac cine, Unspecified Formulation 11/09/2017,10/22/2017,11/20/2015 Seasonal Influenza, Quadriva lent, No Preserve, IM 11/01/2018,11/09/2017 TDAP (age 11 and older)(Adacel) 08/25/2016 documented as of this encounter Social History Tobacco Use Types Packs/Day Years Used Date Smoking Tobacco: Former Cigarettes 1 10 Q uit: 05/19/1974 Smokeless Tobacco: Never Alcohol Use Standard Drinks/Week Comments Yes 4.2 (1 standard drink = 0.6 oz p ure alcohol) once a week Sex and Gender Information Value Date Recorded Sex Assigned at Not on file Gender Identity Not on file Sexual Orientation Not on file Job Start Date Occupation Industry Not on file Not on file Not on file documented as of this encounter Miscellaneous Notes * Telephone Encounter - Dez Barone MD - 12/30/2022 12:23 PM EST I called to discuss her question. Left a message to call back. When she calls back, please let her know we would not do any additional osteoporosis treatments until she is healed from her tooth extractions. Also awaiting her updated DEXA results. * Telephone Encounter - Dahiana Lucia OSA - 12/28/2022 3:17 PM EST Pt stopped in the office to let Dr. Barone know she got her flu shot while at her PCP appt today. She is having all of her teeth removed and will have a consultation on 02/24/23. Was questioning when she will be able to get her infusion. Please advise documented in this encounter Plan of Treatment Upcoming Encounters Date Type Department Care Team (Late st Contact Info) Description 11/09/2023 3:20 PM EDT Office Visit Rheumatology [facility] [address] [place], [place] [address] Dez Barone MD [address] [place] [address] Health Maintenance Due Date Last Done Comments Depression Screening 1957 Hepatitis C Screening 09/11/1961 Zoster Vaccines (1 of 2) 09/11/1993 TSH 01/30/2021 01/31/2020, 10/01/2019 *BISPHONATE OR OTHER ACCEPTABLE MEDICATION NEEDED FOR OSTEOPOROSIS (REFER TO SMARTSET #1146) 11/09/2021 DXA Scan 07/04/2022 07/04/2020 COVID-19 Vaccine (3 - 2022- season) 2022 05/10/2020, 04/19/2020 DTaP,Tdap,and Td Vaccines (2 - Td or Tdap) 08/25/2026 08/25/2016 Pneumococcal Vaccine: 65+ Years Completed 03/08/2018, 12/29/2016 VITAMIN D LEVEL ONCE IN A LIFETIME-USE SMARTSET# 78783 Completed 10/09/2020, 11/01/2018 Influenza Vaccine (FLU shot) Completed 08/2022, 11/01/2018, 11/09/2017, Additional history exists GARDASIL-HPV IMMUNIZATION SERIES Aged Out No longer eligible based on patient's age to complete this topic Hepatitis B Aged Out No longer eligi ble based on patient's age to complete this topic MENINGOCOCCAL (MENACTRA/MENVEO) Aged Out No longer eligible based on patient's age to complete this topic documented as of this encounter Medical Devices Implanted Type Area Fixing Machine Operator Device Identifier Shelf Expiration Date Model / Serial / Lot Alloderm 2x4 Sheet [id number] - [id number] [place]ed:[place] [facility] [place] Human N/A: Esophagus LIFE CELL TAYA 06/21/2010 [id number] / / [id number] Implant Breast Vibha [id number] - [id number] [place]planted:Q[place] : 1 [place] 06[place]16[place]2011 [place] [facility] [place]: Breast MENTOR TAYA 03/01/2016 [id number] C / [id number] / [id number] documented as of this encounter Advance Directives Latest Code Status on File Code Status Date Activated Date Inactivated Comments Full Code 06/16/2011 2:13 PM 06/17/2011 2:05 PM This order reflects the patients wishes and were consensually agreed upon. Code Status History Code Status Date Activated Date Inactivated Comments Full Code 04/01/2010 4:24 PM 04/02/2010 3:30 PM This o rder reflects the patients wishes and were consensually agreed upon. Full Code 01/27/2009 2:05 PM 01/29/2009 4:35 PM This order reflects the patients wishes and were consensually agreed upon. Question Answer Comments Discussion of Advance Directives occurred with: Not Discussed Does the patient have a Living Will? No Does the patient have Health Care Power of Staff Writer? No Full Code 01/27/2009 7:13 AM 01/27/2009 2:05 PM This order reflects the patients wishes and were consensually agreed upon. Care Teams Cascade Operator Relationship Specialty Start Date End Date Jhony Ramires CRNP [address] [place] [address] PCP - General Nurse Practitioner 09/26/18 documented as of this encounter
[2023-01-12] MEDS ORDERED: METOPROLOL TARTRATE 100 MG TAB PO STA (02:21)
[2023-01-12] MEDS ORDERED: buPROPion SR 150 MG TABCR PO ONE (02:21)
--- NOTE | 2023-01-12 02:34 | History & Physical Report ---
Date of Service January 12, 2023 Assessment & Plan (1) Metatarsal fracture: (2) Fall: (3) Atrial fibrillation with RVR: (4) Atrial fibrillation: (5) Depression: (6) Hypertension: (7) Venous insufficiency: (8) Lymphedema of right lower extremity: (9) Anxiety disorder: Plan Nondisplaced fractures of the base of the second, third and fourth metatarsals of right foot- Temporary brace being placed in ED Consult orthopedic surgery Acetaminophen 650 mg by mouth every 6 hours as needed for mild pain or fever Atrial fibrillation with RVR/PAF history/hypertension- Hold apixaban this evening Give a dose of her usual metoprolol tartrate 100 mg x 1 now, which is about 6 hours late, and likely led to her RVR Continue Toprol tartrate 100 mg p.o. twice daily Resume apixaban tomorrow a.m. after orthopedic assessment of above injury Soft tissue lesion in the left orbit- Noted on CT of head, measuring 1.5 x 0.8 cm STATRAD reading as noted, with suggestion of possible MRI of orbit for further evaluation Ask [facility] radiology to over read and advise Patient without symptoms Extrinsic asthma- Continue Arnuity Ellipta and montelukast Anxiety and depression- Continue bupropion SR 100 mg p.o. twice daily and escitalopram 10 mg daily History of Present Illness Chief Complaint: The patient presents to the emergency department after a fall around 10 AM this morning, while she was out feeding her straight cats, and sustained significant right ankle and foot pain that has persisted Primary Care Provider: Jhony Ramires, DARREN, MARIO The patient is a 77-year-old female with a past medical history including hypothyroidism, hypertension, GERD, extrinsic asthma, depression, atrial fibrillation, anxiety, osteoporosis and knee osteoarthritis. She presents to the emergency department after persistent pain that initially began around 10 AM when she fell while outside feeding her cats. She has a known history of atrial fibrillation, and while in the emergency department during my assessment, was in atrial fibrillation with a rate of approximately 110 Allergies Allergy/AdvReac Type Severity Reaction Status Date / Time hornet venom Allergy Severe ANAPHYLAXIS Verified 01/12/23 01:08 Sulfa (Sulfonamide Allergy Unknown UNKNOWN Verified 01/12/23 01:08 Antibiotics) bee venom protein (honey bee) AdvReac Severe Anaphylaxis--YELLOW Verified 01/12/23 01:08 JACKETS & HORNETS Home Medications Medication Instructions Recorded Confirmed Type cholecalciferol (vitamin D3) 125 5,000 units PO DAILY 10/31/18 01/12/23 History mcg (5,000 unit) capsule calcium carbonate 600 mg calcium 600 mg PO DAILY 11/24/18 01/12/23 History (1,500 mg) tablet bupropion HCl 150 mg tablet,12 hr 150 mg PO BID #180 ea 06/14/22 01/12/23 Rx sustained-release escitalopram oxalate 10 mg tablet 10 mg PO DAILY #90 tabs 06/14/22 01/12/23 Rx lisinopril 5 mg tablet 5 mg PO DAILY #90 tabs 06/14/22 01/12/23 Rx metoprolol tartrate 100 mg tablet 100 mg PO BID #180 tabs 06/14/22 01/12/23 Rx omeprazole 20 mg capsule,delayed 20 mg PO DAILY #90 caps 06/14/22 01/12/23 Rx release apixaban 5 mg tablet (Eliquis) 5 mg PO BID #180 tabs 08/30/22 01/12/23 Rx budesonide 180 mcg/actuation 2 inh inhalation BID #1 ea 11/04/22 01/12/23 Rx breath activated powder inhaler (Pulmicort Flexhaler) epinephrine 0.3 mg/0.3 mL 0.3 mg (0.3 mL) IM Q10M PRN 11/04/22 01/12/23 Rx injection, auto-injector anaphylaxis #2 ea montelukast 10 mg tablet 10 mg PO DAILY #90 tabs 11/04/22 01/12/23 Rx diclofenac sodium 1 % topical gel 4 g topical QID PRN Pain 01/12/23 01/12/23 History levothyroxine 112 mcg tablet 112 mcg PO DAILYBB 01/12/23 01/12/23 History multivitamin 1 tab PO DAILY 01/12/23 01/12/23 History Past Med/Surg History Medical History (Updated 01/12/23 @ 05:06 by Manfred Padron MD) History of mitral valve disease Vitamin D deficiency Venous insufficiency Tricompartmental disease of knee Osteoporosis with fracture Mineral deficiency Hypothyroidism Hypomagnesemia Hypertension Gastroesophageal reflux disease Extrinsic asthma Edema Depression Chronic diarrhea Atrial fibrillation Anxiety disorder Allergic rhinitis Abnormal mammography Surgical History H/O breast surgery S/P tubal ligation S/P abdominoplasty History of repair of hiatal hernia Family History Father Colorectal cancer Other Osteoporosis Denies family history of Ovarian cancer Prostate cancer Crohn's disease Myocardial infarction Breast cancer Social History Smoking Status: Former smoker Tobacco Type: Cigarettes Age Started Using Tobacco: 18; Second Hand Exposure: No; Do You Dip or Chew Tobacco: No; Hx Alcohol Use: No Hx Substance Use: No Preferred Language: Uzbek Communication Ability: Effective Visual Impairment: No Limitations Hearing Ability: Normal Ultrasonic Seaming Machine Operator Required: No marital status: Current Living Situation: Spouse current occupational status: retired current occupation: LABOROR How many Children do You have: 0 Feels Safe at Home: Yes Childhood Exposure to Second-Hand Smoke: Yes Diet: regular Diet Comment: regular Dental Care, Regularly: No Physical Activity Frequency: Does not Exercise Seatbelt Use: always Sunscreen Use: Yes Assistive Devices: Glasses Review of Systems Review of Systems: The patient denies chest pain, palpitations, shortness of breath, dyspnea on exertion, cough, sore throat, fevers, chills, sweats, nausea, vomiting, diarrhea , constipation, abdominal pain, pelvic pain, blood in urine or stool, dysuria, urinary frequency or urgency, lightheadedness, dizziness, headache, memory loss, loss of consciousness, rash, abnormal bruising or bleeding, imbalance, focal or generalized weakness, numbness or tingling in arms, generalized arthralgias or myalgias, back or neck pain, or night sweats. The review of systems is otherwise negative other than for that already noted above, and at least 10 systems have been reviewed. Physical Exam Physical Exam: The patient is awake, alert and oriented 3, well developed and well nourished, normocephalic and atraumatic, lying in bed and in no acute distress. HEENT--PERRL, EOMI, mucous membranes and oropharynx normal Neck--supple. No JVD. No bruits. Thyroid normal, trachea midline, no adenopathy. Heart--irregularly irregular and tachycardic. No murmurs, rubs or gallops. Lungs--clear bilaterally, no respiratory distress, no accessory muscle use. Abdomen--normal bowel sounds and soft. Nontender. Nondistended, no hernias or masses, no organomegaly. Extremities--no cyanosis or clubbing. Chronic lymphedema right lower extremity Dermatologic--ecchymoses at base of second through fourth digits of toes on the right Neurologic--cranial nerves II through XII grossly intact. Rheumatologic--normal range of motion, except for right lower extremity Psychiatric--normal affect. Results & Data Results & Data Vital Signs (Past 12 Hours) Vital Signs Temp Pulse Pulse Resp BP BP Pulse Ox 01/12/23 02:00 72 18 151/96 H 93 01/12/23 00:00 94 H 18 159/91 H 92 01/11/23 20:13 37.1 C 93 H 15 164/69 H 95 O2 Del Method 01/12/23 02:00 Room Air 01/12/23 00:00 Room Air 01/11/23 20:13 Room Air Laboratory Results Laboratory Results WBC 11.33 K/ul (4.8-10.8) H 01/11/23 20:36 RBC 4.01 M/uL (4.20-5.40) L 01/11/23 20:36 Hgb 12.3 g/dl (12.0-16.0) 01/11/23 20:36 Hct 38.0 % (37.0-47.0) 01/11/23 20:36 MCV 94.8 fL (80.0-100.0) 01/11/23 20:36 MCH 30.7 pg (25.0-34.0) 01/11/23 20:36 MCHC 32.4 g/dL (32.0-36.0) 01/11/23 20:36 RDW Std Deviation 51.3 fL (36.4-46.3) H 01/11/23 20:36 RDW Coeff of Naila 14.8 % (11.5-14.5) H 01/11/23 20:36 Plt Count 370 K/uL (130-400) 01/11/23 20:36 MPV 9.8 fL (9.4-12.4) 01/11/23 20:36 Immature Gran % (Auto) 0.4 % 01/11/23 20:36 Neut % (Auto) 77.5 % 01/11/23 20:36 Lymph % (Auto) 12.9 % 01/11/23 20:36 [place]on % (Auto) 8.4 % 01/11/23 20:36 Eos % (Auto) 0.2 % 01/11/23 20:36 Baso % (Auto) 0.6 % 01/11/23 20:36 Neut # (Auto) 8.78 K/uL (1.40-6.50) H 01/11/23 20:36 Lymph # (Auto) 1.46 K/uL (1.20-3.40) 01/11/23 20:36 [place]ipton # (Auto) 0.95 K/uL (0.11-0.59) H 01/11/23 20:36 Eos # (Auto) 0.02 K/uL (0.00-0.50) 01/11/23 20:36 Baso # (Auto) 0.07 K/uL (0.00-0.20) 01/11/23 20:36 Immature Gran # (Auto) 0.05 K/uL (0.01-0.20) 01/11/23 20:36 PT 13.2 Seconds (9.0-12.0) H 01/11/23 20:36 INR 1.2 (0.9-1.1) H 01/11/23 20:36 APTT 29.4 Seconds (21.0-31.0) 01/11/23 20:36 PTT Ratio 1.0 01/11/23 20:36 Sodium 138 mmol/L (136-145) 01/11/23 20:36 Potassium 4.3 mmol/L (3.5-5.1) 01/11/23 20:36 Chloride 102 mmol/L (98-107) 01/11/23 20:36 Carbon Dioxide 31 mmol/L (21-32) 01/11/23 20:36 Anion Gap 5 (3-11) 01/11/23 20:36 BUN 12 mg/dl (6-23) 01/11/23 20:36 Creatinine 0.60 mg/dl (0.6-1.2) 01/11/23 20:36 Est Cr Clr Drug Dosing 84.8 ml/min 01/11/23 20:36 Est GFR ( Amer) 100.5 ml/min 01/11/23 20:36 Est GFR (Non-Af Amer) 86.7 ml/min 01/11/23 20:36 BUN/Creatinine Ratio 20.0 (10-20) 01/11/23 20:36 Glucose 139 mg/dl (70-99(Fasting)) H 01/11/23 20:36 Calcium 9.5 mg/dl (8.6-10.3) 01/11/23 20:36 Total Bilirubin 1.2 mg/dl (0.2-1.0) H 01/11/23 20:36 AST 26 U/L (13-39) 01/11/23 20:36 ALT 12 U/L (7-52) 01/11/23 20:36 Alkaline Phosphatase 107 U/L (34-104) H 01/11/23 20:36 Troponin I High Sens 12.0 pg/ml (0-14) 01/11/23 20:36 Total Protein 6.9 gm/dl (6.0-8.3) 01/11/23 20:36 Albumin 3.4 gm/dl (3.4-5.0) 01/11/23 20:36 Globulin 3.5 gm/dl (2.5-4.0) 01/11/23 20:36 Albumin/Globulin Ratio 1.0 (0.9-2) 01/11/23 20:[address] 01/11/23 20:18 Exam(s): CT HEAD Without Contrast EXAM: CT Head Without Intravenous Contrast CLINICAL HISTORY: Reason for exam: Fall. TECHNIQUE: Axial computed tomography images of the head/brain without intravenous contrast. CTDI is 38.17 mGy and DLP is 703.85 mGy-cm. Automated exposure control was utilized for the study. A dose lowering technique was utilized adhering to the principles of ALARA. COMPARISON: Head CT September 29, 2014. FINDINGS: No acute intracranial hemorrhage. No midline shift or mass effect. The territorial gaytan-white matter differentiation is maintained throughout. Age-related cerebral volume loss. Periventricular and subcortical white matter hypoattenuation, consistent with chronic microangiopathy. Soft tissue lesion in the left orbit, measures approximately 1.5 x 0.8 cm. Consider orbit MRI for further evaluation. The calvarium is intact. The visualized paranasal sinuses and mastoid air cells are grossly clear. IMPRESSION: No acute intracranial hemorrhage, midline shift, or mass effect. Soft tissue lesion in the left orbit, measures approximately 1.5 x 0.8 cm. Consider orbit MRI for further evaluation. Electronically signed by: Manjinder Riggs MD 01/11/23 22:[address] 01/11/23 21:53 Exam(s): CT RIGHT FOOT Without Contrast EXAM: CT Right Lower Extremity Without Intravenous Contrast, Foot CLINICAL HISTORY: Reason for exam: R foot pain, edema s/p fall. TECHNIQUE: Axial computed tomography images of the right foot without intravenous contrast. CTDI is 19.7 mGy and DLP is 1.2 mGy-cm. Automated exposure control was utilized for the study. A dose lowering technique was utilized adhering to the principles of ALARA. COMPARISON: No relevant prior studies available. FINDINGS: Bones/joints: Nondisplaced fracture of the base of the second metatarsal. Nondisplaced fracture at the base of the third metatarsal. Nondisplaced fracture at the base of the fourth metatarsal. Moderate- severe degenerative arthropathy. Intact calcaneus and talus. Severe degenerative changes of the tibiotalar joint, subtalar joint, and calcaneocuboid joint. Low she will spur measures 8 mm. Diffuse osseous demineralization. No Lisfranc malalignment. Soft tissues: Unremarkable. No radiopaque foreign body. IMPRESSION: 1. Nondisplaced fracture of the base of the second metatarsal. 2. Nondisplaced fracture at the base of the third metatarsal. 3. Nondisplaced fracture at the base of the fourth metatarsal. Electronically signed by: Manjinder Riggs MD 01/12/23 00:46 AM Code Status & VTE Plan Code Status Full code VTE Prophylaxis Plan VTE Prophylaxis will be ordered: Yes PG Care Time/CCT Total # of Minutes Spent Total Time Spent with Patient: Total time spent is greater than 50% in coordination of care (as documented) at patient's floor/unit and/or counseling patient: Coding Level of Care Code 68995 INT INP/OBS CARE 3/75MIN Diagnoses Metatarsal fracture S92.309A Fall W19.XXXA Atrial fibrillation with RVR I48.91 Atrial fibrillation, unspecified type I48.91 Persistent depressive disorder F34.1 Depression Type: persistent depressive disorder Primary hypertension I10 Hypertension type: primary hypertension Venous insufficiency I87.2 Lymphedema of right lower extremity I89.0 Anxiety disorder F41.9 (5) Depression Depression Type: persistent depressive disorder Qualified Code(s): F34.1 - Dysthymic disorder (6) Hypertension Hypertension type: primary hypertension Qualified Code(s): I10 - Essential (primary) hypertension
[2023-01-12] MEDS ORDERED: ONDANSETRON INJ 2 MG/ML 2 ML VIAL IV PRN (03:41)
[2023-01-12 05:11] LABS: Basophils # (auto) 0.05 K/uL (0.00-0.20); Basophils % (auto) 0.5 %; Eosinophils # (auto) 0.01 K/uL (0.00-0.50); Eosinophils % (auto) 0.1 %; Hematocrit (blood only) 35.6 % (37.0-47.0); Hemoglobin 11.3 g/dl (12.0-16.0); Immature Granulocytes # (auto) 0.01 K/uL (0.01-0.20); Immature Granulocytes % (auto) 0.1 %; Lymphocytes # (auto) 1.79 K/uL (1.20-3.40); Lymphocytes % (auto) 17.7 %; Mean Corpuscular Hemoglobin 29.7 pg (25.0-34.0); Mean Corpuscular Hgb Conc 31.7 g/dL (32.0-36.0); Mean Corpuscular Volume 93.7 fL (80.0-100.0); Mean Platelet Volume 9.5 fL (9.4-12.4); Monocytes # (auto) 1.06 K/uL (0.11-0.59); Monocytes % (auto) 10.5 %; Neutrophils # (auto) 7.17 K/uL (1.40-6.50); Neutrophils % (auto) 71.1 %; Platelet Count 322 K/uL (130-400); RDW Standard Deviation 51.6 fL (36.4-46.3); White Blood Count 10.09 K/ul (4.8-10.8)
[2023-01-12 05:22] LABS: Albumin Level 3.1 gm/dl (3.4-5.0); BUN Creatinine Ratio 20.7 (10-20); Creatinine Clr Calc Pharmacy 87.7 ml/min; Est GFR (African American) 101.6 ml/min; Est GFR (Non-African American) 87.7 ml/min; Phosphorus 2.8 mg/dl (2.5-4.9); Potassium 4.2 mmol/L (3.5-5.1)
[2023-01-12 05:29] LABS: Troponin I High Sensitivity 11.5 pg/ml (0-14)
[2023-01-12] MEDS: LEVOTHYROXINE SODIUM 112 MCG TABLET PO SCH (06:38)
--- NOTE | 2023-01-12 07:09 | XRay Report ---
XR ankle RT min 3V routine, XR foot RT min 3V routine, XR tibia fibula RT 2V CLINICAL HISTORY: Fall, R leg pain TECHNIQUE: 3 views of the right ankle and 3 views of the right foot, and 2 views of the right tibia a nd fibula were obtained. Comparison: Comparison is made to ankle CT 01/31/2018 FINDINGS: There are nondisplaced fractures of the base of the second, third, and fourth metatarsals. Extensive joint space narrowing and osteophyte formation are seen in the ankle joint. Chronic deformity of the distal fibula. The ankle mortise is intact. Soft tissue swelling is seen about the ankle. IMPRESSION: Nondisplaced fractures of the base of the second, third, and fourth metatarsals. Extensive degenerati ve changes as above. ACT 112: Negative or not required by law. Electronically signed by: Benjamin Velez M.D. 01/12/2023 7:06 AM
[2023-01-12] MEDS: APIXABAN 5 MG TABLET PO SCH ×2 (08:47→21:39)
[2023-01-12] MEDS: MULTIVITAMIN TAB PO SCH (08:47)
[2023-01-12] MEDS: PANTOprazole 40 MG TAB PO SCH (08:47)
[2023-01-12] MEDS: lisinopril 5 MG TAB PO SCH (08:47)
[2023-01-12] MEDS: CALCIUM CARBONATE 1250MG TAB PO SCH (08:47)
[2023-01-12] MEDS: MONTELUKAST SODIUM 10 MG TABLET PO SCH (08:47)
[2023-01-12] MEDS: CHOLECALCIFEROL 5,000 UNITS 125 MCG TAB PO SCH (08:47)
[2023-01-12] MEDS: buPROPion SR 150 MG TABCR PO SCH ×2 (08:47→21:38)
[2023-01-12] MEDS: ESCITALOPRAM OXALATE 10 MG TAB PO SCH (08:47)
[2023-01-12] MEDS: METOPROLOL TARTRATE 100 MG TAB PO SCH ×2 (08:47→21:37)
[2023-01-12] MEDS: FLUTICASONE FUROATE 200MCG 14 PUFFS/INHALER INH SCH (09:02)
--- NOTE | 2023-01-12 13:30 | Orthopedic Consultation ---
Date of Consultation January 12, 2023 Assessment & Plan (1) Closed fracture of base of metatarsal bone of right foot: Recommend conservative management with use of limited toe-touch weightbearing immobilization in a walking boot. May remove the boot to sleep and shower. Ice and elevation recommended. Continue with immobilization for approximately 6 weeks and then may begin weightbearing as tolerated in the walking boot. Follow-up as an outpatient with Dr. Ramachandran in approximately 3 to 4 weeks with radiographs of the right foot and ankle. Thank you for the opportunity to consult in the care of this patient. Lio Ramachandran DO [facility] orthopedic [place] [phone] (2) Closed fracture of tarsal bone of right foot: (3) Closed fracture of medial malleolus of right ankle: (4) Lisfranc's sprain: (5) Osteoarthritis of ankle, right: History of Present Illness Reason for Consultation: Right foot multiple metatarsal fractures, medial malleolus fracture, first cuneiform fracture and Lisfranc joint injury after sustaining a fall at home. Requesting Physician: Dr. Manfred Padron Attending Physician: Rhett Iyer DO History of Present Illness This pleasant 77-year-old female well-known to my orthopedic service was feeding some stray cats that she cares for at home when she slipped and fell injuring her right foot and ankle yesterday approximately 10 AM. She had difficulty ambulating and she then presented to [facility] ER for evaluation. X-rays an d CT scan demonstrated the fractures as noted above. Patient was admitted to the hospitalist service due to atrial fibrillation with RVR, multiple foot and ankle fractures and other medical comorbidities. Patient was placed into a walking boot on the right foot and was given supportive care and management. Allergies Allergy/AdvReac Type Severity Reaction Status Date / Time hornet venom Allergy Severe ANAPHYLAXIS Verified 01/12/23 01:08 Sulfa (Sulfonamide Allergy Unknown UNKNOWN Verified 01/12/23 01:08 Antibiotics) bee venom protein (honey bee) AdvReac Severe Anaphylaxis--YELLOW Verified 01/12/23 01:08 JACKETS & HORNETS Home Medications Medication Instructions Recorded Confirmed Type cholecalciferol (vitamin D3) 125 5,000 units PO DAILY 10/31/18 01/12/23 History mcg (5,000 unit) capsule calcium carbonate 600 mg calcium 600 mg PO DAILY 11/24/18 01/12/23 History (1,500 mg) tablet bupropion HCl 150 mg tablet,12 hr 150 mg PO BID #180 ea 06/14/22 01/12/23 Rx sustained-release escitalopram oxalate 10 mg tablet 10 mg PO DAILY #90 tabs 06/14/22 01/12/23 Rx lisinopril 5 mg tablet 5 mg PO DAILY #90 tabs 06/14/22 01/12/23 Rx metoprolol tartrate 100 mg tablet 100 mg PO BID #180 tabs 06/14/22 01/12/23 Rx omeprazole 20 mg capsule,delayed 20 mg PO DAILY #90 caps 06/14/22 01/12/23 Rx release apixaban 5 mg tablet (Eliquis) 5 mg PO BID #180 tabs 08/30/22 01/12/23 Rx budesonide 180 mcg/actuation 2 inh inhalation BID #1 ea 11/04/22 01/12/23 Rx breath activated powder inhaler (Pulmicort Flexhaler) epinephrine 0.3 mg/0.3 mL 0.3 mg (0.3 mL) IM Q10M PRN 11/04/22 01/12/23 Rx injection, auto-injector anaphylaxis #2 ea montelukast 10 mg tablet 10 mg PO DAILY #90 tabs 11/04/22 01/12/23 Rx diclofenac sodium 1 % topical gel 4 g topical QID PRN Pain 01/12/23 01/12/23 History levothyroxine 112 mcg tablet 112 mcg PO DAILYBB 01/12/23 01/12/23 History multivitamin 1 tab PO DAILY 01/12/23 01/12/23 History Patient History Medical History (Updated 01/12/23 @ 17:05 by Lio Ramachandran DO) History of mitral valve disease Vitamin D deficiency Venous insufficiency Tricompartmental disease of knee Osteoporosis with fracture Mineral deficiency Hypothyroidism Hypomagnesemia Hypertension Gastroesophageal reflux disease Extrinsic asthma Edema Depression Chronic diarrhea Atrial fibrillation Anxiety disorder Allergic rhinitis Abnormal mammography Surgical History H/O breast surgery S/P tubal ligation S/P abdominoplasty History of repair of hiatal hernia Family History Father Colorectal cancer Other Osteoporosis Denies family history of Ovarian cancer Prostate cancer Crohn's disease Myocardial infarction Breast cancer Social History Smoking Status: Never smoker Tobacco Type: Cigarettes Age Started Using Tobacco: 18; Second Hand Exposure: No; Do You Dip or Chew Tobacco: No; Hx Alcohol Use: No Hx Substance Use: No Preferred Language: Nepali Communication Ability: Effective Visual Impairment: No Limitations Hearing Ability: Normal Shellac Polisher Required: No Beliefs That Will Affect Care: None marital status: Current Living Situation: Spouse current occupational status: retired current occupation: LABOROR How many Children do You have: 0 Feels Safe at Home: Yes Safety Concerns: Feels Safe At This Time Childhood Exposure to Second-Hand Smoke: Yes Diet: regular Diet Comment: regular Dental Care, Regularly: No Physical Activity Frequency: Does not Exercise Seatbelt Use: always Sunscreen Use: Yes Assistive Devices: Cane Physical Exam Constitutional: WD/WN, vitals as above ENMT: external ear and nose normal, oropharynx normal Neck: trachea midline, no thyromegaly Respiratory: normal respiratory effort, lungs clear to auscultation Cardiovascular: Extremities well perfused x4. Gastrointestinal (Abdomen): Abdomen soft, nontender and nondistended. Musculoskeletal: Focused examination of the right lower extremity demonstrates walking boot in place. Walking boot was removed and the limb was examined noting edema 2/4 right foot. Pedal pulses palpable 2/4. Sensation intact. Limited range of motion and strength testing due to pain and guarding of the right foot and ankle. Point tenderness at the bases of the first, second, third, fourth and fifth metatarsals. Tenderness at the first cuneiform bone. Tenderness at the right medial malleolus of the ankle. Tenderness over Lisfranc joint. Ecchymosis extending along the dorsum of the midfoot extending to the plantar aspect of the right foot. Skin: no rashes, warm and dry Neurologic: PERRL, EOMI, accommodation nl, no face palsy, no dysarthria Psychiatric: A+Ox3, euthymic affect Lymphatic: no cervical or axillary lymphadenopathy Results & Data Vital Signs (Past 12 Hours) Vital Signs Temp Pulse Pulse Resp BP BP Pulse Ox 01/12/23 11:46 36.6 C 82 16 140/82 98 01/12/23 11:46 01/12/23 08:33 89 20 131/97 98 01/12/23 07:56 79 01/12/23 06:00 87 23 139/82 98 01/12/23 05:53 87 18 134/83 98 01/12/23 05:00 87 134/83 98 01/12/23 04:16 93 H 01/12/23 04:00 82 124/87 96 01/12/23 03:30 85 22 124/85 92 01/12/23 02:00 72 18 151/96 H 93 Pulse Ox O2 Del Method O2 Del Method O2 Flow Rate O2 Flow Rate 01/12/23 11:46 Nasal Cannula 2 01/12/23 11:46 98 Nasal Cannula 2 01/12/23 08:33 Nasal Cannula 2 01/12/23 07:56 01/12/23 06:00 Nasal Cannula 2 01/12/23 05:53 Nasal Cannula 2 01/12/23 05:00 01/12/23 04:16 01/12/23 04:00 Room Air 01/12/23 03:30 Room Air 01/12/23 02:00 Room Air Diagnostic Findings Radiographs and CT scan of the right foot reviewed demonstrating fractures of the base of the first/second/third/fourth and fifth metatarsals, fracture of the first cuneiform, fracture of the medial malleolus and subtle widening of the Lisfranc joint with positive isacc sign. Severe ankle and subtalar joint osteoarthritis with loss of joint space, marginal osteophytes, subchondral sclerosis and subchondral cyst formation. (1) Closed fracture of base of metatarsal bone of right foot Encounter type: initial encounter Qualified Code(s): S92.301A - Fracture of unspecified metatarsal bone(s), right foot, initial encounter for closed fracture (2) Closed fracture of tarsal bone of right foot Encounter type: initial encounter Tarsal bone: medial cuneiform Fracture alignment: nondisplaced Qualified Code(s): S92.244A - Nondisplaced fracture of medial cuneiform of right foot, initial encounter for closed fracture (3) Closed fracture of medial malleolus of right ankle Encounter type: initial encounter Fracture alignment: nondisplaced Qualified Code(s): S82.54XA - Nondisplaced fracture of medial malleolus of right tibia, initial encounter for closed fracture (4) Lisfranc's sprain Encounter type: initial encounter Laterality: right Qualified Code(s): S93.621A - Sprain of tarsometatarsal ligament of right foot, initial encounter (5) Osteoarthritis of ankle, right Osteoarthritis type: primary Qualified Code(s): M19.071 - Primary osteoarthritis, right ankle and foot
--- NOTE | 2023-01-12 15:43 | Hospitalist Progress Note ---
Date of Service January 12, 2023 Assessment & Plan (1) Metatarsal fracture: Plan: Nondisplaced fractures of the base of the second, third and fourth metatarsals of right foot- Temporary brace being placed in ED Consult orthopedic surgery; recommend partial weight bearing on right until outpatient f/u with ortho. Acetaminophen 650 mg by mouth every 6 hours as needed for mild pain or fever Will need crutches vs walker; PT/OT ordered Atrial fibrillation Continue apixaban; no plan for acute Afib with RVR noted on admission, likely due to late dosing of her metoprolol. Now rate controlled on her home regimen. Plan to continue home regimen. Continue Toprol tartrate 100 mg p.o. twice daily HTN - continue lisinopril, metoprolol Soft tissue lesion in the left orbit- Noted on CT of head, measuring 1.5 x 0.8 cm STATRAD reading as noted, with suggestion of possible MRI of orbit for further evaluation Discussed with radiology and plan for outpatient ophthalmology evaluation. May be MRI w/ contrast to further characterize, but does not need acutely. Patient without symptoms Extrinsic asthma- Continue Arnuity Ellipta and montelukast Anxiety and depression- Continue bupropion SR 100 mg p.o. twice daily and escitalopram 10 mg daily Hypothyroidism - continue levothyroxine Diet: Full VTE Prophylaxis: Eliquis Dispo: Home vs Rehab pending PT/OT eval (2) Fall: (3) Atrial fibrillation with RVR: (4) Atrial fibrillation: (5) Depression: (6) Hypertension: (7) Venous insufficiency: (8) Lymphedema of right lower extremity: (9) Anxiety disorder: Admission and Anticipated Discharge Date Admission Date: January 12, 2023 Supervising Physician Co-Signing Physician Notes I personally examined the patient and verified all lewis points of history and exam, discussed case, and agree with decision making with Dr Asencio Worried about how she will do getting around with limited weightbearing. Agrees that rehab might be a reasonable option. Vitals noted, in general she is awake and alert pleasant no distress. HEENT normocephalic atraumatic mucous membranes moist. Breathing unlabored no accessory muscle use good effort. Skin shows no rashes no pallor or icterus. Foot fractureappreciate orthopedic input. PT/OT eval and treat, may need rehab. Question of orbital lesionseems to be totally asymptomatic with this no overt signs or symptoms noted. Continued vigilance, outpatient ophthalmology evaluation. Subjective Pt was seen at bedside in the ED this morning. Doing well. Denies pain. Comfortable. Review of Systems Review of Systems: As per above Physical Exam Physical Exam: Constitutional: well-appearing, no acute distress HEENT: NCAT, no conjunctival injection CV: regular rhythm, no murmur appreciated, extremities well-perfused, no LE edema Resp: CTABL, no wheezes/rales/rhonchi appreciated, no increased work of breathing MSK: no gross deformities appreciated Skin: warm, dry, no rash appreciated Neuro: alert, oriented, no focal neurologic deficit appreciated Results & Data Results & Data Vital Signs (Past 12 Hours) Vital Signs Temp Pulse Pulse Resp BP BP Pulse Ox 01/12/23 11:46 36.6 C 82 16 140/82 98 01/12/23 11:46 01/12/23 08:33 89 20 131/97 98 01/12/23 07:56 79 01/12/23 06:00 87 23 139/82 98 01/12/23 05:53 87 18 134/83 98 01/12/23 05:00 87 134/83 98 01/12/23 04:16 93 H 01/12/23 04:00 82 124/87 96 Pulse Ox O2 Del Method O2 Del Method O2 Flow Rate O2 Flow Rate 01/12/23 11:46 Nasal Cannula 2 01/12/23 11:46 98 Nasal Cannula 2 01/12/23 08:33 Nasal Cannula 2 01/12/23 07:56 01/12/23 06:00 Nasal Cannula 2 01/12/23 05:53 Nasal Cannula 2 01/12/23 05:00 01/12/23 04:16 01/12/23 04:00 Room Air Resident Activity Tracking Resident Involvement: Resident Care Provided Care Provided: Adult Hospital Medicine (5) Depression Depression Type: persistent depressive disorder Qualified Code(s): F34.1 - Dysthymic disorder (6) Hypertension Hypertension type: primary hypertension Qualified Code(s): I10 - Essential (primary) hypertension
--- NOTE | 2023-01-12 18:35 | Billing Data ---
Date of Service January 12, 2023 Coding Level of Care Code 56202 SUB INP/OBS CARE
[2023-01-12] MEDS: ACETAMINOPHEN 325 MG TAB PO PRN (20:37)
[2023-01-13 03:11] LABS: Appearance Urine Clear (Clear); Bilirubin Urine Negative (Negative); Blood Urine Negative (Negative); Color Urine Yellow; Glucose Urine UA Negative (Negative); Ketones Urine Trace (Negative); Leukocyte Esterase Urine Negative (Negative); Nitrite Urine Negative (Negative); Protein Urine Negative (Negative); Specific Gravity Urine 1.009 (1.000-1.030); Urobilinogen Urine Negative (Negative)
[2023-01-13] MEDS: LEVOTHYROXINE SODIUM 112 MCG TABLET PO SCH (05:28)
[2023-01-13 05:57] LABS: Basophils # (auto) 0.03 K/uL (0.00-0.20); Basophils % (auto) 0.3 %; Eosinophils # (auto) 0.09 K/uL (0.00-0.50); Hematocrit (blood only) 36.1 % (37.0-47.0); Hemoglobin 11.8 g/dl (12.0-16.0); Immature Granulocytes # (auto) 0.02 K/uL (0.01-0.20); Immature Granulocytes % (auto) 0.2 %; Lymphocytes # (auto) 1.49 K/uL (1.20-3.40); Lymphocytes % (auto) 16.1 %; Mean Corpuscular Hgb Conc 32.7 g/dL (32.0-36.0); Mean Corpuscular Volume 91.9 fL (80.0-100.0); Mean Platelet Volume 9.5 fL (9.4-12.4); Monocytes # (auto) 0.85 K/uL (0.11-0.59); Monocytes % (auto) 9.2 %; Neutrophils % (auto) 73.2 %; Platelet Count 313 K/uL (130-400); RDW Coefficient of Variation 14.6 % (11.5-14.5); RDW Standard Deviation 49.7 fL (36.4-46.3); Red Blood Count 3.93 M/uL (4.20-5.40); White Blood Count 9.28 K/ul (4.8-10.8)
[2023-01-13 06:04] LABS: Albumin Level 3.1 gm/dl (3.4-5.0); BUN Creatinine Ratio 13.6 (10-20); Calcium 9.3 mg/dl (8.6-10.3); Creatinine Clr Calc Pharmacy 85.5 ml/min; Est GFR (Non-African American) 87.2 ml/min; Magnesium 1.4 mg/dl (1.7-2.4); Potassium 3.9 mmol/L (3.5-5.1)
--- NOTE | 2023-01-13 07:26 | Electrocardiogram Report ---
Test Reason : Blood Pressure : / mmHG Vent. Rate : 092 BPM Atrial Rate : 000 BPM P-R Int : 000 ms QRS Dur : 086 ms QT Int : 396 ms P-R-T Axes : 000 019 015 degrees QTc Int : 489 ms Atrial fibrillation Nonspecific T wave abnormality Prolonged QT Abnormal ECG When compared with ECG of 04-JUN-2003 12:27, Atrial fibrillation has replaced Sinus rhythm Confirmed by Salomon Turner ([id number]) on 01/13/2023 7:26:11 AM Referred By: REFERRED SELF Confirmed By:Salomon Turner
[2023-01-13] MEDS: APIXABAN 5 MG TABLET PO SCH ×2 (09:26→20:11)
[2023-01-13] MEDS: buPROPion SR 150 MG TABCR PO SCH ×2 (09:26→20:11)
[2023-01-13] MEDS: ESCITALOPRAM OXALATE 10 MG TAB PO SCH (09:27)
[2023-01-13] MEDS: lisinopril 5 MG TAB PO SCH (09:27)
[2023-01-13] MEDS: CHOLECALCIFEROL 5,000 UNITS 125 MCG TAB PO SCH (09:27)
[2023-01-13] MEDS: PANTOprazole 40 MG TAB PO SCH (09:27)
[2023-01-13] MEDS: METOPROLOL TARTRATE 100 MG TAB PO SCH ×2 (09:27→20:10)
[2023-01-13] MEDS: MONTELUKAST SODIUM 10 MG TABLET PO SCH (09:27)
[2023-01-13] MEDS: CALCIUM CARBONATE 1250MG TAB PO SCH (09:27)
[2023-01-13] MEDS: MULTIVITAMIN TAB PO SCH (09:27)
[2023-01-13] MEDS: FLUTICASONE FUROATE 200MCG 14 PUFFS/INHALER INH SCH (09:28)
[2023-01-13] MEDS: MAGNESIUM SULFATE / D5W 1 GM/100 ML BAG IV SCH ×2 (09:30→12:24)
--- NOTE | 2023-01-13 12:26 | Orthopedic Progress Note ---
Date of Service January 13, 2023 Assessment & Plan (1) Closed fracture of base of metatarsal bone of right foot: Plan: Closed minimally displaced fractures of the first/second/third/fourth/fifth metatarsals, fracture of the medial cuneiform and medial malleolus. Lisfranc ligament injury with subtle widening of Lisfranc's joint. Recommend conservative management with use of limited toe-touch weightbearing immobilization in a walking boot. May remove the boot to sleep and shower. Ice and elevation recommended. Continue with immobilization for approximately 6 weeks and then may begin weightbearing as tolerated in the walking boot. Follow-up as an outpatient with Dr. Ramachandran in approximately 3 to 4 weeks with radiographs of the right foot and ankle. Thank you for the opportunity to consult in the care of this patient. Lio Ramachandran DO [facility] orthopedic [place] [phone] (2) Closed fracture of tarsal bone of right foot: (3) Closed fracture of medial malleolus of right ankle: (4) Lisfranc's sprain: (5) Osteoarthritis of ankle, right: Admission and Anticipated Discharge Date Admission Date: January 12, 2023 Subjective Patient seen during rounds while resting comfortably in hospital bed. Right foot and ankle pain has been improved with use of the walking boot, intermittent ice and elevation. She is awaiting disposition to longterm facility to assist with limitations in weightbearing due to fractures and assistance with transfers. Physical Exam Constitutional: WD/WN, vitals as above ENMT: external ear and nose normal, oropharynx normal Neck: trachea midline, no thyromegaly Respiratory: normal respiratory effort, lungs clear to auscultation Musculoskeletal: Right lower extremity in Velcro walking boot. Toes are pink and warm. Sensation intact. Pedal pulses are palpable and capillary refill is brisk. Continues to tenderness to palpation at the multiple fracture sites including the first through fifth metatarsals, medial malleolus, Lisfranc joint and the first cuneiform. Skin is intact with ecchymosis unchanged compared to yesterday exam. Compartments are soft. Homans negative. Skin: no rashes, warm and dry Neurologic: PERRL, EOMI, accommodation nl, no face palsy, no dysarthria Psychiatric: A+Ox3, euthymic affect Lymphatic: no cervical or axillary lymphadenopathy Results & Data Vital Signs (Past 12 Hours) Vital Signs Temp Pulse Pulse Resp BP Pulse Ox O2 Del Method 01/13/23 07:59 37.0 C 91 H 18 163/97 H 93 Room Air 01/13/23 07:54 87 01/13/23 02:39 36.5 C 82 16 130/75 92 Room Air 01/13/23 02:23 84 (1) Closed fracture of base of metatarsal bone of right foot Encounter type: initial encounter Qualified Code(s): S92.301A - Fracture of unspecified metatarsal bone(s), right foot, initial encounter for closed fracture (2) Closed fracture of tarsal bone of right foot Encounter type: initial encounter Tarsal bone: medial cuneiform Fracture alignment: nondisplaced Qualified Code(s): S92.244A - Nondisplaced fracture of medial cuneiform of right foot, initial encounter for closed fracture (3) Closed fracture of medial malleolus of right ankle Encounter type: initial encounter Fracture alignment: nondisplaced Qualified Code(s): S82.54XA - Nondisplaced fracture of medial malleolus of right tibia, initial encounter for closed fracture (4) Lisfranc's sprain Encounter type: initial encounter Laterality: right Qualified Code(s): S93.621A - Sprain of tarsometatarsal ligament of right foot, initial encounter (5) Osteoarthritis of ankle, right Osteoarthritis type: primary Qualified Code(s): M19.071 - Primary osteoarthritis, right ankle and foot
--- NOTE | 2023-01-13 12:59 | Electrocardiogram Report ---
Test Reason : Blood Pressure : / mmHG Vent. Rate : 088 BPM Atrial Rate : 080 BPM P-R Int : 000 ms QRS Dur : 090 ms QT Int : 390 ms P-R-T Axes : 000 029 048 degrees QTc Int : 471 ms Atrial fibrillation Nonspecific T wave abnormality Prolonged QT Abnormal ECG When compared with ECG of 12-JAN-2023 03:30, (unconfirmed) Nonspecific T wave abnormality, improved in Inferior leads Confirmed by Thomas Cooney ([id number]) on 01/13/2023 12:59:12 PM Referred By: REFERRED SELF Confirmed By:Thomas Cooney
--- NOTE | 2023-01-13 15:44 | Hospitalist Progress Note ---
Date of Service January 13, 2023 Assessment & Plan (1) Metatarsal fracture: Plan: This is a 77-year-old female who presents to the hospital after experiencing a fall at home who comes in complaining of foot pain. Patient found to have multiple fractures in her right foot. Orthopedic consultation completed: Recommending conservative management with use of limited toe-touch weightbearing immobilization in a walking boot. Awaiting final PT and OT recommendations, but suspect need for acute rehab stay. Nondisplaced fractures of the base of the second, third and fourth metatarsals of right foot- Temporary brace being placed in ED Consult orthopedic surgery; recommend partial weight bearing on right until outpatient f/u with ortho. Acetaminophen 650 mg by mouth every 6 hours as needed for mild pain or fever Will need crutches vs walker; PT/OT ordered, OT recommending acute rehab, PT eval pending Atrial fibrillation Continue apixaban; no plan for acute Afib with RVR noted on admission, likely due to late dosing of her metoprolol. Now rate controlled on her home regimen. Plan to continue home regimen. Continue Toprol tartrate 100 mg p.o. twice daily HTN - continue lisinopril, metoprolol Soft tissue lesion in the left orbit- Noted on CT of head, measuring 1.5 x 0.8 cm STATRAD reading as noted, with suggestion of possible MRI of orbit for further evaluation Discussed with radiology and plan for outpatient ophthalmology evaluation. May be MRI w/ contrast to further characterize, but does not need acutely. Patient without symptoms Extrinsic asthma- Continue Arnuity Ellipta and montelukast Anxiety and depression- Continue bupropion SR 100 mg p.o. twice daily and escitalopram 10 mg daily Hypothyroidism - continue levothyroxine Diet: Full VTE Prophylaxis: Eliquis Dispo: Home vs Rehab pending PT/OT eval (2) Fall: (3) Atrial fibrillation with RVR: (4) Atrial fibrillation: (5) Depression: (6) Hypertension: (7) Venous insufficiency: (8) Lymphedema of right lower extremity: (9) Anxiety disorder: Admission and Anticipated Discharge Date Admission Date: January 12, 2023 Supervising Physician Co-Signing Physician Notes I personally examined the patient and verified all lewis points of history and exam, discussed case, and agree with decision making with Dr Talia horner, getting around reasonably, but definitely still feels like she is going to have a hard time navigating at home and would prefer to look at rehab options. Vitals noted, in general she is awake and alert pleasant no distress. HEENT normocephalic atraumatic mucous membranes moist. Breathing unlabored no accessory muscle use good effort. Skin shows no rashes no pallor or icterus. Foot fractureappreciate orthopedic input. PT/OT eval and treat, likely need rehab Question of orbital lesionseems to be totally asymptomatic with this no overt signs or symptoms noted. Continued vigilance, outpatient ophthalmology evaluation. Subjective Patient seen at bedside this morning. No acute events reported overnight. Patient continues to have minimal to no pain. Orthopedic boot in place, no other complaints at this time. Review of Systems Review of Systems: All systems reviewed & are unremarkable except as noted in HPI & below Physical Exam Constitutional: WD/WN, vitals as above Orthopedic boot on right foot Eyes: + anicteric sclerae Neck: normal visual inspection Respiratory: normal respiratory effort, lungs clear to auscultation Cardiovascular: RRR, no murmur, no edema Musculoskeletal: Head/Neck/Chest: normocephalic and head atraumatic Skin: no rashes, warm and dry Neurologic: moves all extremities Psychiatric: A+Ox3, euthymic affect Results & Data Results & Data Vital Signs (Past 12 Hours) Vital Signs Temp Pulse Pulse Resp BP Pulse Ox O2 Del Method 01/13/23 12:31 36.6 C 86 18 138/88 92 Room Air 01/13/23 07:59 37.0 C 91 H 18 163/97 H 93 Room Air 01/13/23 07:54 87 (5) Depression Depression Type: persistent depressive disorder Qualified Code(s): F34.1 - Dysthymic disorder (6) Hypertension Hypertension type: primary hypertension Qualified Code(s): I10 - Essential (primary) hypertension
--- NOTE | 2023-01-13 16:05 | Billing Data ---
Date of Service January 13, 2023 Coding Level of Care Code 95010 SUB INP/OBS CARE
[2023-01-13] MEDS: ACETAMINOPHEN 325 MG TAB PO PRN (20:23)
[2023-01-14] MEDS: ACETAMINOPHEN 325 MG TAB PO PRN (02:09)
[2023-01-14] MEDS: LEVOTHYROXINE SODIUM 112 MCG TABLET PO SCH (05:32)
--- NOTE | 2023-01-14 08:04 | Hospitalist Progress Note ---
Date of Service January 14, 2023 Assessment & Plan (1) Metatarsal fracture: Plan: This is a 77-year-old female who presents to the hospital after experiencing a fall at home who comes in complaining of foot pain. Patient found to have multiple fractures in her right foot. Orthopedic consultation completed: Recommending conservative management with use of limited toe-touch weightbearing immobilization in a walking boot. Awaiting final PT and OT recommendations, but suspect need for acute rehab stay. Minimally displaced fractures of the base of the first, second, third, fourth and fifth metatarsals, and medial cuneiform and medical malleolus of right foot- Continue walking boot with limited toe-touch weightbearing for 6 weeks Acetaminophen 650 mg by mouth every 6 hours as needed for mild pain or fever Will need crutches vs walker; PT/OT ordered, OT recommending acute rehab, PT eval pending Will f/u with ortho as an OP in 3-4 weeks Atrial fibrillation Continue apixaban Afib with RVR noted on admission, likely due to late dosing of her metoprolol. Now rate controlled on her home regimen. Plan to continue home regimen. Continue Toprol tartrate 100 mg p.o. twice daily HTN - continue lisinopril, metoprolol Soft tissue lesion in the left orbit- Noted on CT of head, measuring 1.5 x 0.8 cm STATRAD reading as noted, with suggestion of possible MRI of orbit for further evaluation Discussed with radiology and plan for outpatient ophthalmology evaluation. May be MRI w/ contrast to further characterize, but does not need acutely. Patient without symptoms Extrinsic asthma- Continue Arnuity Ellipta and montelukast Anxiety and depression- Continue bupropion SR 100 mg p.o. twice daily and escitalopram 10 mg daily Hypothyroidism - continue levothyroxine Diet: Full VTE Prophylaxis: Eliquis Dispo: Home vs Rehab pending PT/OT eval (2) Fall: (3) Atrial fibrillation with RVR: (4) Atrial fibrillation: (5) Depression: (6) Hypertension: (7) Venous insufficiency: (8) Lymphedema of right lower extremity: (9) Anxiety disorder: Admission and Anticipated Discharge Date Admission Date: January 12, 2023 Supervising Physician Co-Signing Physician Notes I personally examined the patient and verified all lewis points of history and exam, discussed case, and agree with decision making with Dr Asencio Case discussed with case management. OT input noted. Case management notes the patient did feel like she needed rehab as well. Sleeping whenever I enter the room, given that we are largely awaiting disposition, I allowed patient to rest. Vitals noted, in general she is resting comfortably appears to be in no distress. Breathing unlabored no accessory muscle use good effort. Skin shows no rashes no pallor or icterus. Foot fractureappreciate orthopedic input. PT/OT eval and treat, appears would benefit from rehabcase management working on this Question of orbital lesionseems to be totally asymptomatic with this no overt signs or symptoms noted. Continued vigilance, outpatient ophthalmology evaluation. Resident discussion with in-house radiologist suggested that ophthalmology evaluation would likely be more accurate than MRI to further elucidate what (if anything) is causing the lesion. Subjective Pt doing well this morning. Notes some pain in foot, which improved with Tylenol. Otherwise no complaints. Review of Systems Review of Systems: As per above Physical Exam Physical Exam: Constitutional: well-appearing, no acute distress HEENT: NCAT, no conjunctival injection CV: regular rhythm, no murmur appreciated, extremities well-perfused, no LE edema Resp: CTABL, no wheezes/rales/rhonchi appreciated, no increased work of breathing MSK: no gross deformities appreciated Skin: warm, dry, no rash appreciated Neuro: alert, oriented, no focal neurologic deficit appreciated Results & Data Results & Data Vital Signs (Past 12 Hours) Vital Signs Temp Pulse Resp BP Pulse Ox O2 Del Method 01/14/23 07:34 36.6 C 94 H 16 144/90 H 94 Room Air 01/14/23 02:25 36.5 C 87 18 143/92 H 93 Room Air 01/13/23 23:00 36.6 C 108 H 16 128/82 90 Room Air Resident Activity Tracking Resident Involvement: Resident Care Provided Care Provided: Adult Hospital Medicine (5) Depression Depression Type: persistent depressive disorder Qualified Code(s): F34.1 - Dysthymic disorder (6) Hypertension Hypertension type: primary hypertension Qualified Code(s): I10 - Essential (primary) hypertension
[2023-01-14] MEDS: buPROPion SR 150 MG TABCR PO SCH ×2 (08:11→20:46)
[2023-01-14] MEDS: CHOLECALCIFEROL 5,000 UNITS 125 MCG TAB PO SCH (08:11)
[2023-01-14] MEDS: lisinopril 5 MG TAB PO SCH (08:11)
[2023-01-14] MEDS: ESCITALOPRAM OXALATE 10 MG TAB PO SCH (08:11)
[2023-01-14] MEDS: METOPROLOL TARTRATE 100 MG TAB PO SCH ×2 (08:12→20:46)
[2023-01-14] MEDS: FLUTICASONE FUROATE 200MCG 14 PUFFS/INHALER INH SCH (08:12)
[2023-01-14] MEDS: MULTIVITAMIN TAB PO SCH (08:12)
[2023-01-14] MEDS: CALCIUM CARBONATE 1250MG TAB PO SCH (08:12)
[2023-01-14] MEDS: MONTELUKAST SODIUM 10 MG TABLET PO SCH (08:12)
[2023-01-14] MEDS: APIXABAN 5 MG TABLET PO SCH ×2 (08:12→20:46)
[2023-01-14] MEDS: PANTOprazole 40 MG TAB PO SCH (08:12)
[2023-01-14 09:23] LABS: Basophils # (auto) 0.05 K/uL (0.00-0.20); Basophils % (auto) 0.5 %; Eosinophils # (auto) 0.13 K/uL (0.00-0.50); Eosinophils % (auto) 1.4 %; Hematocrit (blood only) 37.7 % (37.0-47.0); Hemoglobin 12.5 g/dl (12.0-16.0); Immature Granulocytes # (auto) 0.03 K/uL (0.01-0.20); Immature Granulocytes % (auto) 0.3 %; Lymphocytes # (auto) 1.53 K/uL (1.20-3.40); Lymphocytes % (auto) 16.8 %; Mean Corpuscular Hemoglobin 30.6 pg (25.0-34.0); Mean Corpuscular Hgb Conc 33.2 g/dL (32.0-36.0); Mean Corpuscular Volume 92.2 fL (80.0-100.0); Mean Platelet Volume 9.7 fL (9.4-12.4); Monocytes # (auto) 0.66 K/uL (0.11-0.59); Monocytes % (auto) 7.3 %; Neutrophils % (auto) 73.7 %; Platelet Count 336 K/uL (130-400); RDW Coefficient of Variation 14.8 % (11.5-14.5); RDW Standard Deviation 50.1 fL (36.4-46.3); Red Blood Count 4.09 M/uL (4.20-5.40)
[2023-01-14 09:37] LABS: BUN Creatinine Ratio 15.3 (10-20); Creatinine Clr Calc Pharmacy 85.5 ml/min; Est GFR (Non-African American) 87.2 ml/min; Potassium 3.6 mmol/L (3.5-5.1)
[2023-01-14 09:40] LABS: Albumin Level 3.2 gm/dl (3.4-5.0); Creatinine Clr Calc Pharmacy 84.1 ml/min; Est GFR (African American) 100.5 ml/min; Est GFR (Non-African American) 86.7 ml/min; Magnesium 1.6 mg/dl (1.7-2.4); Phosphorus 3.5 mg/dl (2.5-4.9); Potassium 3.7 mmol/L (3.5-5.1)
--- NOTE | 2023-01-14 13:11 | Electrocardiogram Report ---
Test Reason : Blood Pressure : / mmHG Vent. Rate : 082 BPM Atrial Rate : 081 BPM P-R Int : 000 ms QRS Dur : 090 ms QT Int : 388 ms P-R-T Axes : 000 026 048 degrees QTc Int : 453 ms Atrial fibrillation Nonspecific T wave abnormality Abnormal ECG When compared with ECG of 13-JAN-2023 05:03, Nonspecific T wave abnormality now evident in Lateral leads Confirmed by Thomas Cooney [id number] on 01/14/2023 1:10:58 PM Referred By: REFERRED SELF Confirmed By:Thomas Cooney
--- NOTE | 2023-01-14 13:21 | Billing Data ---
Date of Service January 14, 2023 Coding Level of Care Code 97515 SUB INP/OBS CARE
[2023-01-15] MEDS: LEVOTHYROXINE SODIUM 112 MCG TABLET PO SCH (06:16)
--- NOTE | 2023-01-15 07:11 | Hospitalist Progress Note ---
Date of Service January 15, 2023 Assessment & Plan (1) Metatarsal fracture: Plan: This is a 77-year-old female who presents to the hospital after experiencing a fall at home who comes in complaining of foot pain. Patient found to have multiple fractures in her right foot. Orthopedic consultation completed: Recommending conservative management with use of limited toe-touch weightbearing immobilization in a walking boot. Awaiting final PT and OT recommendations, but suspect need for acute rehab stay. Minimally displaced fractures of the base of the first, second, third, fourth and fifth metatarsals, and medial cuneiform and medical malleolus of right foot- Continue walking boot with limited toe-touch weightbearing for 6 weeks Acetaminophen 650 mg by mouth every 6 hours as needed for pain Will need crutches vs walker; PT/OT ordered, PT/OT recommending acute rehab Will f/u with ortho as an OP in 3-4 weeks Atrial fibrillation Continue apixaban Afib with RVR noted on admission, likely due to late dosing of her metoprolol. Now rate controlled on her home regimen. Plan to continue home regimen. Continue Toprol tartrate 100 mg p.o. twice daily HTN - continue lisinopril, metoprolol Soft tissue lesion in the left orbit- Noted on CT of head, measuring 1.5 x 0.8 cm STATRAD reading as noted, with suggestion of possible MRI of orbit for further evaluation Discussed with radiology and plan for outpatient ophthalmology evaluation. May be MRI w/ contrast to further characterize, but does not need acutely. Patient without symptoms Extrinsic asthma- Continue Arnuity Ellipta and montelukast Anxiety and depression- Continue bupropion SR 100 mg p.o. twice daily and escitalopram 10 mg daily Hypothyroidism - continue levothyroxine Diet: Full VTE Prophylaxis: Eliquis Dispo: Home vs Rehab pending PT/OT eval (2) Fall: (3) Atrial fibrillation with RVR: (4) Atrial fibrillation: (5) Depression: (6) Hypertension: (7) Venous insufficiency: (8) Lymphedema of right lower extremity: (9) Anxiety disorder: Admission and Anticipated Discharge Date Admission Date: January 14, 2023 Supervising Physician Co-Signing Physician Notes I personally examined the patient and verified all lewis points of history and exam, discussed case, and agree with decision making with Dr Asencio Case discussed with case management. Therapy input appreciated. Patient has no acute complaints today. Vitals noted, in general she is awake and alert pleasant no distress. HEENT normocephalic atraumatic mucous membranes moist. Breathing unlabored no accessory muscle use good effort. Skin shows no rashes no pallor or icterus. Neuro without focal deficits Foot fractureappreciate orthopedic input. PT/OT eval and treat, currently requires rehabcase management working on this Question of orbital lesionseems to be totally asymptomatic with this no overt signs or symptoms noted. Continued vigilance, outpatient ophthalmology evaluation. Resident discussion with in-house radiologist suggested that ophthalmology evaluation would likely be more accurate than MRI to further elucidate what (if anything) is causing the lesion. Subjective Doing well this morning. Does note some pain in foot overnight, better with Tylenol. Review of Systems Review of Systems: As per above Physical Exam Physical Exam: Constitutional: well-appearing, no acute distress HEENT: NCAT, no conjunctival injection CV: extremities well-perfused Resp: no increased work of breathing MSK: no gross deformities appreciated Skin: warm, dry, no rash appreciated Neuro: alert, oriented, no focal neurologic deficit appreciated Results & Data Results & Data Vital Signs (Past 12 Hours) Vital Signs Temp Pulse Resp BP Pulse Ox O2 Del Method 01/14/23 20:41 37.0 C 98 H 18 120/69 94 Room Air (5) Depression Depression Type: persistent depressive disorder Qualified Code(s): F34.1 - Dysthymic disorder (6) Hypertension Hypertension type: primary hypertension Qualified Code(s): I10 - Essential (primary) hypertension
[2023-01-15] MEDS: CHOLECALCIFEROL 5,000 UNITS 125 MCG TAB PO SCH (08:50)
[2023-01-15] MEDS: APIXABAN 5 MG TABLET PO SCH ×2 (08:50→20:27)
[2023-01-15] MEDS: METOPROLOL TARTRATE 100 MG TAB PO SCH ×2 (08:50→20:27)
[2023-01-15] MEDS: MONTELUKAST SODIUM 10 MG TABLET PO SCH (08:50)
[2023-01-15] MEDS: CALCIUM CARBONATE 1250MG TAB PO SCH (08:50)
[2023-01-15] MEDS: MULTIVITAMIN TAB PO SCH (08:50)
[2023-01-15] MEDS: buPROPion SR 150 MG TABCR PO SCH ×2 (08:50→20:28)
[2023-01-15] MEDS: PANTOprazole 40 MG TAB PO SCH (08:50)
[2023-01-15] MEDS: lisinopril 5 MG TAB PO SCH (08:50)
[2023-01-15] MEDS: FLUTICASONE FUROATE 200MCG 14 PUFFS/INHALER INH SCH (08:50)
[2023-01-15] MEDS: ESCITALOPRAM OXALATE 10 MG TAB PO SCH (08:50)
[2023-01-15 09:11] LABS: Hematocrit (blood only) 37.5 % (37.0-47.0); Hemoglobin 12.1 g/dl (12.0-16.0); Mean Corpuscular Hemoglobin 30.5 pg (25.0-34.0); Mean Corpuscular Hgb Conc 32.3 g/dL (32.0-36.0); Mean Corpuscular Volume 94.5 fL (80.0-100.0); Mean Platelet Volume 9.5 fL (9.4-12.4); Platelet Count 341 K/uL (130-400); RDW Coefficient of Variation 15.1 % (11.5-14.5); RDW Standard Deviation 51.4 fL (36.4-46.3); Red Blood Count 3.97 M/uL (4.20-5.40); White Blood Count 8.86 K/ul (4.8-10.8)
[2023-01-15 09:36] LABS: BUN Creatinine Ratio 15.8 (10-20); Calcium 9.1 mg/dl (8.6-10.3); Creatinine Clr Calc Pharmacy 88.5 ml/min; Est GFR (African American) 102.2 ml/min; Est GFR (Non-African American) 88.2 ml/min; Magnesium 1.4 mg/dl (1.7-2.4)
[2023-01-15] MEDS: MAGNESIUM SULFATE / D5W 1 GM/100 ML BAG IV SCH ×2 (10:48→12:50)
--- NOTE | 2023-01-15 13:45 | Billing Data ---
Date of Service January 15, 2023 Coding Level of Care Code 47479 SUB INP/OBS CARE 03/17MIN
[2023-01-16] MEDS: LEVOTHYROXINE SODIUM 112 MCG TABLET PO SCH (05:46)
--- NOTE | 2023-01-16 07:00 | Hospitalist Progress Note ---
Date of Service January 16, 2023 Assessment & Plan (1) Metatarsal fracture: Plan: This is a 77-year-old female who presents to the hospital after experiencing a fall at home who comes in complaining of foot pain. Patient found to have multiple fractures in her right foot. Orthopedic consultation completed: Recommending conservative management with use of limited toe-touch weightbearing immobilization in a walking boot. Awaiting final PT and OT recommendations, but suspect need for acute rehab stay. Minimally displaced fractures of the base of the first, second, third, fourth and fifth metatarsals, and medial cuneiform and medical malleolus of right foot- Continue walking boot with limited toe-touch weightbearing for 6 weeks Acetaminophen 650 mg by mouth every 6 hours as needed for pain Will need crutches vs walker; PT/OT ordered, PT/OT recommending acute rehab Will f/u with ortho as an OP in 3-4 weeks Atrial fibrillation Continue apixaban Afib with RVR noted on admission, likely due to late dosing of her metoprolol. Now rate controlled on her home regimen. Plan to continue home regimen. Continue Toprol tartrate 100 mg p.o. twice daily Hypomagnesium - Mg= 1.5; repeated HTN - continue lisinopril, metoprolol Soft tissue lesion in the left orbit- Noted on CT of head, measuring 1.5 x 0.8 cm STATRAD reading as noted, with suggestion of possible MRI of orbit for further evaluation Discussed with radiology and plan for outpatient ophthalmology evaluation. May be MRI w/ contrast to further characterize, but does not need acutely. Patient without symptoms Extrinsic asthma- Continue Arnuity Ellipta and montelukast Anxiety and depression- Continue bupropion SR 100 mg p.o. twice daily and escitalopram 10 mg daily Hypothyroidism - continue levothyroxine Diet: Full VTE Prophylaxis: Eliquis Dispo: Home vs Rehab pending PT/OT eval (2) Fall: (3) Atrial fibrillation with RVR: (4) Atrial fibrillation: (5) Depression: (6) Hypertension: (7) Venous insufficiency: (8) Lymphedema of right lower extremity: (9) Anxiety disorder: Admission and Anticipated Discharge Date Admission Date: January 14, 2023 Supervising Physician Co-Signing Physician Notes I personally examined the patient and verified all lewis points of history and exam, discussed case, and agree with decision making with Dr Asencio no new problems. still waiting on placement.. Vitals noted, in general she is awake and alert pleasant no distress. HEENT normocephalic atraumatic mucous membranes moist. Breathing unlabored no accessory muscle use good effort. Skin shows no rashes no pallor or icterus. Neuro without focal deficits Foot fractureappreciate orthopedic input. PT/OT eval and treat, currently requires rehabcase management working on this but insurance not able to get back to us on weekends, delaying her transfer due to their own internal bureaucratic constraints. Question of orbital lesionseems to be totally asymptomatic with this no overt signs or symptoms noted. Continued vigilance, outpatient ophthalmology evaluation. Resident discussion with in-house radiologist suggested that ophthalmology evaluation would likely be more accurate than MRI to further elucidate what (if anything) is causing the lesion. Subjective Pt seen at bedside this morning. No complaints, anxious to get to rehab. Pain is well controlled, sleep well last night. Review of Systems Review of Systems: As per above Physical Exam Physical Exam: Constitutional: well-appearing, no acute distress HEENT: NCAT, no conjunctival injection CV: extremities well-perfused Resp: no increased work of breathing MSK: no gross deformities appreciated Skin: warm, dry, no rash appreciated Neuro: alert, oriented, no focal neurologic deficit appreciated Results & Data Results & Data Vital Signs (Past 12 Hours) Vital Signs Temp Pulse Resp BP Pulse Ox O2 Del Method 01/15/23 20:25 36.8 C 95 H 17 121/70 93 Room Air Resident Activity Tracking Resident Involvement: Resident Care Provided Care Provided: Adult Hospital Medicine (5) Depression Depression Type: persistent depressive disorder Qualified Code(s): F34.1 - Dysthymic disorder (6) Hypertension Hypertension type: primary hypertension Qualified Code(s): I10 - Essential (primary) hypertension
--- NOTE | 2023-01-16 07:45 | Electrocardiogram Report ---
Test Reason : Blood Pressure : / mmHG Vent. Rate : 079 BPM Atrial Rate : 097 BPM P-R Int : 000 ms QRS Dur : 086 ms QT Int : 404 ms P-R-T Axes : 000 016 048 degrees QTc Int : 463 ms Atrial fibrillation Nonspecific T wave abnormality Anterior leads Abnormal ECG When compared with ECG of 14-JAN-2023 07:56, No significant change was found Confirmed by Linwood Craig ([id number] on 01/16/2023 7:44:37 AM Referred By: REFERRED SELF Confirmed By:Linwood Craig
[2023-01-16] MEDS: CALCIUM CARBONATE 1250MG TAB PO SCH (07:52)
[2023-01-16] MEDS: lisinopril 5 MG TAB PO SCH (07:52)
[2023-01-16] MEDS: CHOLECALCIFEROL 5,000 UNITS 125 MCG TAB PO SCH (07:52)
[2023-01-16] MEDS: MONTELUKAST SODIUM 10 MG TABLET PO SCH (07:52)
[2023-01-16] MEDS: PANTOprazole 40 MG TAB PO SCH (07:52)
[2023-01-16] MEDS: MULTIVITAMIN TAB PO SCH (07:53)
[2023-01-16] MEDS: METOPROLOL TARTRATE 100 MG TAB PO SCH ×2 (07:53→20:39)
[2023-01-16] MEDS: buPROPion SR 150 MG TABCR PO SCH ×2 (07:54→20:39)
[2023-01-16] MEDS: ESCITALOPRAM OXALATE 10 MG TAB PO SCH (07:54)
[2023-01-16] MEDS: APIXABAN 5 MG TABLET PO SCH ×2 (07:54→20:40)
[2023-01-16] MEDS: FLUTICASONE FUROATE 200MCG 14 PUFFS/INHALER INH SCH (07:55)
[2023-01-16 08:48] LABS: BUN Creatinine Ratio 13.5 (10-20); Calcium 9.3 mg/dl (8.6-10.3); Creatinine Clr Calc Pharmacy 94.4 ml/min; Est GFR (African American) 105.3 ml/min; Est GFR (Non-African American) 90.9 ml/min; Magnesium 1.5 mg/dl (1.7-2.4); Potassium 3.8 mmol/L (3.5-5.1)
[2023-01-16] MEDS: MAGNESIUM SULFATE / D5W 1 GM/100 ML BAG IV SCH ×2 (11:19→13:01)
[2023-01-16] MEDS: ACETAMINOPHEN 325 MG TAB PO PRN (14:56)
--- NOTE | 2023-01-16 18:04 | Billing Data ---
Date of Service January 16, 2023 Coding Level of Care Code 86635 SUB INP/OBS CARE
[2023-01-17] MEDS: LEVOTHYROXINE SODIUM 112 MCG TABLET PO SCH (06:17)
--- NOTE | 2023-01-17 07:21 | Hospitalist Progress Note ---
Date of Service January 17, 2023 Assessment & Plan (1) Metatarsal fracture: Plan: Minimally displaced fractures of the base of the first, second, third, fourth and fifth metatarsals, and medial cuneiform and medical malleolus of right foot- Continue walking boot with limited toe-touch weightbearing for 6 weeks Acetaminophen 650 mg by mouth every 6 hours as needed for pain Will need crutches vs walker; PT/OT ordered, PT/OT recommending acute rehab Will f/u with ortho as an OP in 3-4 weeks Atrial fibrillation Continue apixaban Afib with RVR noted on admission, likely due to late dosing of her metoprolol. Now rate controlled on her home regimen. Plan to continue home regimen. Continue Toprol tartrate 100 mg p.o. twice daily Hypomagnesium - Repleated; continue to trend HTN - continue lisinopril, metoprolol Soft tissue lesion in the left orbit- Noted on CT of head, measuring 1.5 x 0.8 cm STATRAD reading as noted, with suggestion of possible MRI of orbit for further evaluation Discussed with radiology and plan for outpatient ophthalmology evaluation. May be MRI w/ contrast to further characterize, but does not need acutely. Patient without symptoms Extrinsic asthma- Continue Arnuity Ellipta and montelukast Anxiety and depression- Continue bupropion SR 100 mg p.o. twice daily and escitalopram 10 mg daily Hypothyroidism - continue levothyroxine Diet: Full VTE Prophylaxis: Eliquis Dispo: Home vs Rehab pending PT/OT eval (2) Fall: (3) Atrial fibrillation with RVR: (4) Atrial fibrillation: (5) Depression: (6) Hypertension: (7) Venous insufficiency: (8) Lymphedema of right lower extremity: (9) Anxiety disorder: Admission and Anticipated Discharge Date Admission Date: January 14, 2023 Supervising Physician Co-Signing Physician Notes Also the patient affirmed lewis portions of the clinical history and physical examination. Agree with the impression and plan as noted in the resident documentation above. Upon our mid afternoon exam, patient without new complaints. She is awaiting insurance approval, bed availability for placement. Additional per resident documentation above Subjective Pt doing well this morning. Complains of intermittent throbbing pain in foot, well controlled by Tylenol. Anxious to get to rehab. Review of Systems Review of Systems: As per above Physical Exam Physical Exam: Constitutional: well-appearing, no acute distress HEENT: NCAT, no conjunctival injection CV: regular rhythm, no murmur appreciated, extremities well-perfused, no LE edema Resp: CTABL, no wheezes/rales/rhonchi appreciated, no increased work of breathing MSK: no gross deformities appreciated Skin: warm, dry, no rash appreciated Neuro: alert, oriented, no focal neurologic deficit appreciated Results & Data Results & Data Vital Signs (Past 12 Hours) Vital Signs Temp Pulse Resp BP Pulse Ox O2 Del Method 01/17/23 06:33 36.5 C 88 18 123/86 95 Room Air 01/16/23 20:14 36.8 C 90 18 115/72 96 Room Air (5) Depression Depression Type: persistent depressive disorder Qualified Code(s): F34.1 - Dysthymic disorder (6) Hypertension Hypertension type: primary hypertension Qualified Code(s): I10 - Essential (primary) hypertension
[2023-01-17 08:56] LABS: BUN Creatinine Ratio 12.7 (10-20); Calcium 9.3 mg/dl (8.6-10.3); Creatinine Clr Calc Pharmacy 77.9 ml/min; Est GFR (African American) 98.9 ml/min; Est GFR (Non-African American) 85.3 ml/min; Magnesium 1.6 mg/dl (1.7-2.4); Potassium 4.5 mmol/L (3.5-5.1)
[2023-01-17] MEDS: FLUTICASONE FUROATE 200MCG 14 PUFFS/INHALER INH SCH (09:19)
[2023-01-17] MEDS: CHOLECALCIFEROL 5,000 UNITS 125 MCG TAB PO SCH (09:20)
[2023-01-17] MEDS: lisinopril 5 MG TAB PO SCH (09:20)
[2023-01-17] MEDS: buPROPion SR 150 MG TABCR PO SCH ×2 (09:20→20:46)
[2023-01-17] MEDS: MULTIVITAMIN TAB PO SCH (09:20)
[2023-01-17] MEDS: CALCIUM CARBONATE 1250MG TAB PO SCH (09:20)
[2023-01-17] MEDS: MONTELUKAST SODIUM 10 MG TABLET PO SCH (09:21)
[2023-01-17] MEDS: PANTOprazole 40 MG TAB PO SCH (09:21)
[2023-01-17] MEDS: APIXABAN 5 MG TABLET PO SCH ×2 (09:21→20:46)
[2023-01-17] MEDS: METOPROLOL TARTRATE 100 MG TAB PO SCH ×2 (09:21→20:46)
[2023-01-17] MEDS: ESCITALOPRAM OXALATE 10 MG TAB PO SCH (09:21)
[2023-01-17] MEDS: MAGNESIUM SULFATE / D5W 1 GM/100 ML BAG IV SCH ×2 (17:40→20:47)
[2023-01-18] MEDS: LEVOTHYROXINE SODIUM 112 MCG TABLET PO SCH (05:36)
--- NOTE | 2023-01-18 06:58 | Hospitalist Progress Note ---
Date of Service January 18, 2023 Assessment & Plan (1) Metatarsal fracture: Plan: Minimally displaced fractures of the base of the first, second, third, fourth and fifth metatarsals, and medial cuneiform and medical malleolus of right foot- Continue walking boot with limited toe-touch weightbearing for 6 weeks Acetaminophen 650 mg by mouth every 6 hours as needed for pain Will need crutches vs walker; PT/OT ordered, PT/OT recommending acute rehab Will f/u with ortho as an OP in 3-4 weeks Atrial fibrillation Continue apixaban Afib with RVR noted on admission, likely due to late dosing of her metoprolol. Now rate controlled on her home regimen. Plan to continue home regimen. Continue Toprol tartrate 100 mg p.o. twice daily Hypomagnesium - Repleted HTN - continue lisinopril, metoprolol Soft tissue lesion in the left orbit- Noted on CT of head, measuring 1.5 x 0.8 cm STATRAD reading as noted, with suggestion of possible MRI of orbit for further evaluation Discussed with radiology and plan for outpatient ophthalmology evaluation. May be MRI w/ contrast to further characterize, but does not need acutely. Patient without symptoms Extrinsic asthma- Continue Arnuity Ellipta and montelukast Anxiety and depression- Continue bupropion SR 100 mg p.o. twice daily and escitalopram 10 mg daily Hypothyroidism - continue levothyroxine Diet: Full VTE Prophylaxis: Eliquis Dispo: SNf vs Rehab (2) Fall: (3) Atrial fibrillation with RVR: (4) Atrial fibrillation: (5) Depression: (6) Hypertension: (7) Venous insufficiency: (8) Lymphedema of right lower extremity: (9) Anxiety disorder: Admission and Anticipated Discharge Date Admission Date: January 14, 2023 Supervising Physician Co-Signing Physician Notes Attending attestation Pt seen and examined in concert with Dr. Asencio. In agreement with the documented findings as noted in the resident documentation with any exceptions or additions as noted here. No new complaints on evaluation. Pending insurance and bed availability. Else see resident documentation as noted. Subjective Rosalinda is doing well this morning. Pain is well controlled. Anxious to get to rehab. Review of Systems Review of Systems: As per above Physical Exam Physical Exam: Constitutional: well-appearing, no acute distress HEENT: NCAT, no conjunctival injection CV: regular rhythm, no murmur appreciated, extremities well-perfused, no LE edema Resp: CTABL, no wheezes/rales/rhonchi appreciated, no increased work of breathing MSK: no gross deformities appreciated Skin: warm, dry, no rash appreciated Neuro: alert, oriented, no focal neurologic deficit appreciated Results & Data Results & Data Vital Signs (Past 12 Hours) Vital Signs Temp Pulse Resp BP Pulse Ox O2 Del Method 01/17/23 20:39 36.7 C 98 H 18 126/72 93 Room Air Resident Activity Tracking Resident Involvement: Resident Care Provided Care Provided: Adult Hospital Medicine (5) Depression Depression Type: persistent depressive disorder Qualified Code(s): F34.1 - Dysthymic disorder (6) Hypertension Hypertension type: primary hypertension Qualified Code(s): I10 - Essential (primary) hypertension
[2023-01-18] MEDS: MULTIVITAMIN TAB PO SCH (08:12)
[2023-01-18] MEDS: APIXABAN 5 MG TABLET PO SCH ×2 (08:12→20:19)
[2023-01-18] MEDS: PANTOprazole 40 MG TAB PO SCH (08:12)
[2023-01-18] MEDS: MONTELUKAST SODIUM 10 MG TABLET PO SCH (08:12)
[2023-01-18] MEDS: buPROPion SR 150 MG TABCR PO SCH ×2 (08:12→20:19)
[2023-01-18] MEDS: ESCITALOPRAM OXALATE 10 MG TAB PO SCH (08:13)
[2023-01-18] MEDS: CALCIUM CARBONATE 1250MG TAB PO SCH (08:13)
[2023-01-18] MEDS: lisinopril 5 MG TAB PO SCH (08:13)
[2023-01-18] MEDS: METOPROLOL TARTRATE 100 MG TAB PO SCH ×2 (08:13→20:19)
[2023-01-18] MEDS: CHOLECALCIFEROL 5,000 UNITS 125 MCG TAB PO SCH (08:13)
[2023-01-18] MEDS: FLUTICASONE FUROATE 200MCG 14 PUFFS/INHALER INH SCH (08:14)
[2023-01-19] MEDS: LEVOTHYROXINE SODIUM 112 MCG TABLET PO SCH (05:51)
[2023-01-19] MEDS: ESCITALOPRAM OXALATE 10 MG TAB PO SCH (07:29)
[2023-01-19] MEDS: CALCIUM CARBONATE 1250MG TAB PO SCH (07:29)
[2023-01-19] MEDS: MONTELUKAST SODIUM 10 MG TABLET PO SCH (07:29)
[2023-01-19] MEDS: MULTIVITAMIN TAB PO SCH (07:29)
[2023-01-19] MEDS: PANTOprazole 40 MG TAB PO SCH (07:29)
[2023-01-19] MEDS: APIXABAN 5 MG TABLET PO SCH ×2 (07:30→20:12)
[2023-01-19] MEDS: buPROPion SR 150 MG TABCR PO SCH ×2 (07:30→20:12)
[2023-01-19] MEDS: CHOLECALCIFEROL 5,000 UNITS 125 MCG TAB PO SCH (07:30)
[2023-01-19] MEDS: FLUTICASONE FUROATE 200MCG 14 PUFFS/INHALER INH SCH (07:30)
[2023-01-19] MEDS: lisinopril 5 MG TAB PO SCH (07:30)
[2023-01-19] MEDS: METOPROLOL TARTRATE 100 MG TAB PO SCH ×2 (07:30→20:12)
--- NOTE | 2023-01-19 08:15 | Hospitalist Progress Note ---
Date of Service January 19, 2023 Assessment & Plan (1) Metatarsal fracture: Plan: Minimally displaced fractures of the base of the first, second, third, fourth and fifth metatarsals, and medial cuneiform and medical malleolus of right foot- Continue walking boot with limited toe-touch weightbearing for 6 weeks Acetaminophen 650 mg by mouth every 6 hours as needed for pain Will need crutches vs walker; PT/OT ordered, PT/OT recommending acute rehab Will f/u with ortho as an OP in 3-4 weeks Atrial fibrillation Continue apixaban Afib with RVR noted on admission, likely due to late dosing of her metoprolol. Now rate controlled on her home regimen. Plan to continue home regimen. Continue Toprol tartrate 100 mg p.o. twice daily Hypomagnesium - Repleted HTN - continue lisinopril, metoprolol Soft tissue lesion in the left orbit- Noted on CT of head, measuring 1.5 x 0.8 cm STATRAD reading as noted, with suggestion of possible MRI of orbit for further evaluation Discussed with radiology and plan for outpatient ophthalmology evaluation. May be MRI w/ contrast to further characterize, but does not need acutely. Patient without symptoms Extrinsic asthma- Continue Arnuity Ellipta and montelukast Anxiety and depression- Continue bupropion SR 100 mg p.o. twice daily and escitalopram 10 mg daily Hypothyroidism - continue levothyroxine Diet: Full VTE Prophylaxis: Eliquis Dispo: SNf vs Rehab (2) Fall: (3) Atrial fibrillation with RVR: (4) Atrial fibrillation: (5) Depression: (6) Hypertension: (7) Venous insufficiency: (8) Lymphedema of right lower extremity: (9) Anxiety disorder: Admission and Anticipated Discharge Date Admission Date: January 14, 2023 Supervising Physician Co-Signing Physician Notes Attending attestation Pt seen and examined in concert with Dr. Asencio. In agreement with the documented findings as noted in the resident documentation with any exceptions or additions as noted here. No new complaints on evaluation. Pending insurance and bed availability. Else see resident documentation as noted. Subjective Doing well this morning. Notes some "tightness", swelling in foot, but otherwise no complaints. Review of Systems Review of Systems: As per above Physical Exam Physical Exam: Constitutional: well-appearing, no acute distress HEENT: NCAT, no conjunctival injection CV: regular rhythm, no murmur appreciated, extremities well-perfused Resp: CTABL, no wheezes/rales/rhonchi appreciated, no increased work of breathing MSK: no gross deformities appreciated Skin: warm, dry, no rash appreciated Neuro: alert, oriented, no focal neurologic deficit appreciated Results & Data Results & Data Vital Signs (Past 12 Hours) Vital Signs Temp Pulse Resp BP Pulse Ox O2 Del Method 01/19/23 07:21 36.7 C 81 18 126/82 93 Room Air Resident Activity Tracking Resident Involvement: Resident Care Provided Care Provided: Adult Hospital Medicine (5) Depression Depression Type: persistent depressive disorder Qualified Code(s): F34.1 - Dysthymic disorder (6) Hypertension Hypertension type: primary hypertension Qualified Code(s): I10 - Essential (primary) hypertension
[2023-01-20] MEDS: LEVOTHYROXINE SODIUM 112 MCG TABLET PO SCH (05:35)
--- NOTE | 2023-01-20 06:50 | Hospitalist Progress Note ---
Date of Service January 20, 2023 Assessment & Plan (1) Metatarsal fracture: Plan: Minimally displaced fractures of the base of the first, second, third, fourth and fifth metatarsals, and medial cuneiform and medical malleolus of right foot- Continue walking boot with limited toe-touch weightbearing for 6 weeks Acetaminophen 650 mg by mouth every 6 hours as needed for pain Will need crutches vs walker; PT/OT ordered, PT/OT recommending acute rehab Will f/u with ortho as an OP in 3-4 weeks Atrial fibrillation Continue apixaban Afib with RVR noted on admission, likely due to late dosing of her metoprolol. Now rate controlled on her home regimen. Plan to continue home regimen. Continue Toprol tartrate 100 mg p.o. twice daily Hypomagnesium - Repleted HTN - continue lisinopril, metoprolol Soft tissue lesion in the left orbit- Noted on CT of head, measuring 1.5 x 0.8 cm STATRAD reading as noted, with suggestion of possible MRI of orbit for further evaluation Discussed with radiology and plan for outpatient ophthalmology evaluation. May be MRI w/ contrast to further characterize, but does not need acutely. Patient without symptoms Extrinsic asthma- Continue Arnuity Ellipta and montelukast Anxiety and depression- Continue bupropion SR 100 mg p.o. twice daily and escitalopram 10 mg daily Hypothyroidism - continue levothyroxine Diet: Full VTE Prophylaxis: Eliquis Dispo: SNf vs Rehab - pending insurance auth (2) Fall: (3) Atrial fibrillation with RVR: (4) Atrial fibrillation: (5) Depression: (6) Hypertension: (7) Venous insufficiency: (8) Lymphedema of right lower extremity: (9) Anxiety disorder: Admission and Anticipated Discharge Date Admission Date: January 14, 2023 Supervising Physician Co-Signing Physician Notes I also saw the patient and confirmed lewis portions of the history and exam. I discussed the case with Dr. Asencio. I agree with the documented findings as noted in the resident documentation above. She has no complaints today - placement is pending insurance and bed availability logistics. Additional per resident documentation. Subjective Rosalinda is doing well. Notes some increased swelling in right foot. Well perfused and good pulses. Will trial some ice. Review of Systems Review of Systems: As per above Physical Exam Physical Exam: Constitutional: well-appearing, no acute distress HEENT: NCAT, no conjunctival injection CV: regular rhythm, no murmur appreciated, extremities well-perfused Resp: CTABL, no wheezes/rales/rhonchi appreciated, no increased work of breathing MSK: no gross deformities appreciated Skin: warm, dry, no rash appreciated Neuro: alert, oriented, no focal neurologic deficit appreciated Results & Data Results & Data Vital Signs (Past 12 Hours) Vital Signs Temp Pulse Resp BP Pulse Ox O2 Del Method 01/19/23 19:30 36.3 C L 82 18 132/77 95 Room Air Resident Activity Tracking Resident Involvement: Resident Care Provided Care Provided: Adult Hospital Medicine (5) Depression Depression Type: persistent depressive disorder Qualified Code(s): F34.1 - Dysthymic disorder (6) Hypertension Hypertension type: primary hypertension Qualified Code(s): I10 - Essential (primary) hypertension
[2023-01-20] MEDS: ESCITALOPRAM OXALATE 10 MG TAB PO SCH (07:55)
[2023-01-20] MEDS: CALCIUM CARBONATE 1250MG TAB PO SCH (07:55)
[2023-01-20] MEDS: METOPROLOL TARTRATE 100 MG TAB PO SCH ×2 (07:55→20:00)
[2023-01-20] MEDS: PANTOprazole 40 MG TAB PO SCH (07:55)
[2023-01-20] MEDS: CHOLECALCIFEROL 5,000 UNITS 125 MCG TAB PO SCH (07:55)
[2023-01-20] MEDS: MONTELUKAST SODIUM 10 MG TABLET PO SCH (07:55)
[2023-01-20] MEDS: MULTIVITAMIN TAB PO SCH (07:55)
[2023-01-20] MEDS: lisinopril 5 MG TAB PO SCH (07:55)
[2023-01-20] MEDS: FLUTICASONE FUROATE 200MCG 14 PUFFS/INHALER INH SCH (07:56)
[2023-01-20] MEDS: APIXABAN 5 MG TABLET PO SCH ×2 (07:56→20:00)
[2023-01-20] MEDS: buPROPion SR 150 MG TABCR PO SCH ×2 (07:56→20:00)
[2023-01-21] MEDS: LEVOTHYROXINE SODIUM 112 MCG TABLET PO SCH (05:37)
--- NOTE | 2023-01-21 07:16 | Hospitalist Progress Note ---
Date of Service January 21, 2023 Assessment & Plan (1) Metatarsal fracture: Plan: Minimally displaced fractures of the base of the first, second, third, fourth and fifth metatarsals, and medial cuneiform and medical malleolus of right foot- Continue walking boot with limited toe-touch weightbearing for 6 weeks Acetaminophen 650 mg by mouth every 6 hours as needed for pain Will need crutches vs walker; PT/OT ordered, PT/OT recommending acute rehab Will f/u with ortho as an OP in 3-4 weeks Atrial fibrillation Continue apixaban Afib with RVR noted on admission, likely due to late dosing of her metoprolol. Now rate controlled on her home regimen. Plan to continue home regimen. Continue Toprol tartrate 100 mg p.o. twice daily Hypomagnesium - Repleted HTN - continue lisinopril, metoprolol Soft tissue lesion in the left orbit- Noted on CT of head, measuring 1.5 x 0.8 cm STATRAD reading as noted, with suggestion of possible MRI of orbit for further evaluation Discussed with radiology and plan for outpatient ophthalmology evaluation. May be MRI w/ contrast to further characterize, but does not need acutely. Patient without symptoms Extrinsic asthma- Continue Arnuity Ellipta and montelukast Anxiety and depression- Continue bupropion SR 100 mg p.o. twice daily and escitalopram 10 mg daily Hypothyroidism - continue levothyroxine Diet: Full VTE Prophylaxis: Eliquis Dispo: SNf vs Rehab - pending insurance auth (2) Fall: (3) Atrial fibrillation with RVR: (4) Atrial fibrillation: (5) Depression: (6) Hypertension: (7) Venous insufficiency: (8) Lymphedema of right lower extremity: (9) Anxiety disorder: Admission and Anticipated Discharge Date Admission Date: January 14, 2023 Supervising Physician Co-Signing Physician Notes Attending attestation Pt seen and examined in concert with Dr. Asencio. In agreement with the documented findings as noted in the resident documentation with any exceptions or additions as noted here. No new complaints on evaluation. Pending insurance and bed availability. Else see resident documentation as noted. Jean Claude Tellez is doing well this morning. Foot is still a little swollen, but otherwise no complaints. Review of Systems Review of Systems: As per above Physical Exam Physical Exam: Constitutional: well-appearing, no acute distress HEENT: NCAT, no conjunctival injection CV: regular rhythm, no murmur appreciated, extremities well-perfused Resp: CTABL, no wheezes/rales/rhonchi appreciated, no increased work of breathing MSK: no gross deformities appreciated Skin: warm, dry, no rash appreciated Neuro: alert, oriented, no focal neurologic deficit appreciated Results & Data Results & Data Vital Signs (Past 12 Hours) Vital Signs Temp Pulse Resp BP Pulse Ox O2 Del Method 01/20/23 19:57 36.5 C 77 18 110/72 93 Room Air Resident Activity Tracking Resident Involvement: Resident Care Provided Care Provided: Adult Hospital Medicine (5) Depression Depression Type: persistent depressive disorder Qualified Code(s): F34.1 - Dysthymic disorder (6) Hypertension Hypertension type: primary hypertension Qualified Code(s): I10 - Essential (primary) hypertension
[2023-01-21] MEDS: CALCIUM CARBONATE 1250MG TAB PO SCH (07:38)
[2023-01-21] MEDS: CHOLECALCIFEROL 5,000 UNITS 125 MCG TAB PO SCH (07:38)
[2023-01-21] MEDS: ESCITALOPRAM OXALATE 10 MG TAB PO SCH (07:38)
[2023-01-21] MEDS: PANTOprazole 40 MG TAB PO SCH (07:38)
[2023-01-21] MEDS: MULTIVITAMIN TAB PO SCH (07:38)
[2023-01-21] MEDS: MONTELUKAST SODIUM 10 MG TABLET PO SCH (07:38)
[2023-01-21] MEDS: METOPROLOL TARTRATE 100 MG TAB PO SCH ×2 (07:39→20:14)
[2023-01-21] MEDS: lisinopril 5 MG TAB PO SCH (07:39)
[2023-01-21] MEDS: buPROPion SR 150 MG TABCR PO SCH ×2 (07:39→20:13)
[2023-01-21] MEDS: FLUTICASONE FUROATE 200MCG 14 PUFFS/INHALER INH SCH (07:39)
[2023-01-21] MEDS: APIXABAN 5 MG TABLET PO SCH ×2 (07:39→20:13)
[2023-01-22] MEDS: LEVOTHYROXINE SODIUM 112 MCG TABLET PO SCH (06:00)
--- NOTE | 2023-01-22 06:52 | Hospitalist Progress Note ---
Date of Service January 22, 2023 Assessment & Plan (1) Metatarsal fracture: Plan: Minimally displaced fractures of the base of the first, second, third, fourth and fifth metatarsals, and medial cuneiform and medical malleolus of right foot- -Continue walking boot with limited toe-touch weightbearing for 6 weeks -Acetaminophen 650 mg by mouth every 6 hours as needed for pain -Will need crutches vs walker; PT/OT ordered, PT/OT recommending acute rehab -Will f/u with ortho as an OP in 3-4 weeks Atrial fibrillation -Continue apixaban -Afib with RVR noted on admission, likely due to late dosing of her metoprolol. Now rate controlled on her home regimen. Plan to continue home regimen. -Continue Toprol tartrate 100 mg p.o. twice daily Hypomagnesium -Repleted HTN -Continue lisinopril, metoprolol Soft tissue lesion in the left orbit -Noted on CT of head, measuring 1.5 x 0.8 cm -STATRAD reading as noted, with suggestion of possible MRI of orbit for further evaluation -Discussed with radiology and plan for outpatient ophthalmology evaluation. May be MRI w/ contrast to further characterize, but does not need acutely. -Patient without symptoms Extrinsic asthma- -Continue Arnuity Ellipta and montelukast Anxiety and depression- -Continue bupropion SR 100 mg p.o. twice daily and escitalopram 10 mg daily Hypothyroidism -Continue levothyroxine Diet: Full VTE Prophylaxis: Eliquis Dispo: SNf vs Rehab - pending insurance auth (2) Fall: (3) Atrial fibrillation with RVR: (4) Atrial fibrillation: (5) Depression: (6) Hypertension: (7) Venous insufficiency: (8) Lymphedema of right lower extremity: (9) Anxiety disorder: Admission and Anticipated Discharge Date Admission Date: January 14, 2023 Supervising Physician Co-Signing Physician Notes Attending attestation Pt seen and examined in concert with Dr. Tinoco. In agreement with the documented findings as noted in the resident documentation with any exceptions or additions as noted here. No new complaints on evaluation. Pending insurance and bed availability. Else see resident documentation as noted. Subjective Patient seen and examined at bedside. Patient eating breakfast, has not acute concerns or complaints. Notes that her right foot is a bit swollen but not very painful. Review of Systems Review of Systems: As per above Physical Exam Constitutional: WD/WN, vitals as above Eyes: + anicteric sclerae; no conjunctival abn ormality ENMT: Ears: no external ear abnormality Nose: no external nose abnormality Moist mucous membranes Respiratory: normal respiratory effort, lungs clear to auscultation Cardiovascular: Rate/Rhythm: regular rate and regular rhythm No lower extremity edema Skin: no rashes, warm and dry Psychiatric: A+Ox3, euthymic affect Results & Data Results & Data Vital Signs (Past 12 Hours) Vital Signs Temp Pulse Resp BP Pulse Ox O2 Del Method 01/21/23 19:20 36.3 C L 79 16 120/72 94 Room Air Resident Activity Tracking Resident Involvement: Resident Care Provided Care Provided: Adult Hospital Medicine (5) Depression Depression Type: persistent depressive disorder Qualified Code(s): F34.1 - Dysthymic disorder (6) Hypertension Hypertension type: primary hypertension Qualified Code(s): I10 - Essential (primary) hypertension
[2023-01-22] MEDS: buPROPion SR 150 MG TABCR PO SCH ×2 (08:33→19:50)
[2023-01-22] MEDS: PANTOprazole 40 MG TAB PO SCH (08:33)
[2023-01-22] MEDS: APIXABAN 5 MG TABLET PO SCH ×2 (08:33→19:49)
[2023-01-22] MEDS: lisinopril 5 MG TAB PO SCH (08:34)
[2023-01-22] MEDS: METOPROLOL TARTRATE 100 MG TAB PO SCH ×2 (08:34→19:49)
[2023-01-22] MEDS: CALCIUM CARBONATE 1250MG TAB PO SCH (08:34)
[2023-01-22] MEDS: MULTIVITAMIN TAB PO SCH (08:34)
[2023-01-22] MEDS: MONTELUKAST SODIUM 10 MG TABLET PO SCH (08:34)
[2023-01-22] MEDS: ESCITALOPRAM OXALATE 10 MG TAB PO SCH (08:34)
[2023-01-22] MEDS: CHOLECALCIFEROL 5,000 UNITS 125 MCG TAB PO SCH (08:34)
[2023-01-22] MEDS: FLUTICASONE FUROATE 200MCG 14 PUFFS/INHALER INH SCH (08:35)
[2023-01-23] MEDS: LEVOTHYROXINE SODIUM 112 MCG TABLET PO SCH (05:58)
--- NOTE | 2023-01-23 07:36 | Hospitalist Progress Note ---
Date of Service January 23, 2023 Assessment & Plan (1) Metatarsal fracture: Plan: Minimally displaced fractures of the base of the first, second, third, fourth and fifth metatarsals, and medial cuneiform and medical malleolus of right foot- -Continue walking boot with limited toe-touch weightbearing for 6 weeks -Acetaminophen 650 mg by mouth every 6 hours as needed for pain -Will need crutches vs walker; PT/OT ordered, PT/OT recommending acute rehab -Will f/u with ortho as an OP in 3-4 weeks Atrial fibrillation -Continue apixaban -Afib with RVR noted on admission, likely due to late dosing of her metoprolol. Now rate controlled on her home regimen. Plan to continue home regimen. -Continue Toprol tartrate 100 mg p.o. twice daily Hypomagnesium -Repleted HTN -Continue lisinopril, metoprolol Soft tissue lesion in the left orbit -Noted on CT of head, measuring 1.5 x 0.8 cm -STATRAD reading as noted, with suggestion of possible MRI of orbit for further evaluation -Discussed with radiology and plan for outpatient ophthalmology evaluation. May be MRI w/ contrast to further characterize, but does not need acutely. -Patient without symptoms Extrinsic asthma- -Continue Arnuity Ellipta and montelukast Anxiety and depression- -Continue bupropion SR 100 mg p.o. twice daily and escitalopram 10 mg daily Hypothyroidism -Continue levothyroxine Post Nasal Drip -Ordered ipratropium nasal spray Diet: Full VTE Prophylaxis: Eliquis Dispo: SNf vs Rehab - pending insurance auth (2) Fall: (3) Atrial fibrillation with RVR: (4) Atrial fibrillation: (5) Depression: (6) Hypertension: (7) Venous insufficiency: (8) Lymphedema of right lower extremity: (9) Anxiety disorder: Admission and Anticipated Discharge Date Admission Date: January 14, 2023 Supervising Physician Co-Signing Physician Notes Attending attestation Pt seen and examined in concert with Dr. Tinoco. In agreement with the documented findings as noted in the resident documentation with any exceptions or additions as noted here. No new complaints on evaluation. Pending insurance and bed availability. Else see resident documentation as noted. Subjective Patient seen and examined at bedside. No acute events reported overnight. She states she was able to work with PT yesterday, still has some swelling in her foot. She also notes that she has a raspy voice from some nasal drainage, but is feeling well otherwise. Denies shortness of breath. Review of Systems Review of Systems: As per above Physical Exam Constitutional: WD/WN, vitals as above Eyes: + anicteric sclerae; no conjunctival abn ormality ENMT: Ears: no external ear abnormality Nose: no external nose abnormality Respiratory: normal respiratory effort, lungs clear to auscultation Cardiovascular: Rate/Rhythm: + irregularly irregular No significant lower extremity edema bilaterally Skin: no rashes, warm and dry Psychiatric: A+Ox3, euthymic affect Results & Data Results & Data Vital Signs (Past 12 Hours) Vital Signs Temp Pulse Resp BP Pulse Ox O2 Del Method 01/22/23 19:43 36.6 C 82 18 100/63 93 Room Air Resident Activity Tracking Resident Involvement: Resident Care Provided Care Provided: Adult Hospital Medicine (5) Depression Depression Type: persistent depressive disorder Qualified Code(s): F34.1 - Dysthymic disorder (6) Hypertension Hypertension type: primary hypertension Qualified Code(s): I10 - Essential (primary) hypertension
[2023-01-23] MEDS: CHOLECALCIFEROL 5,000 UNITS 125 MCG TAB PO SCH (07:49)
[2023-01-23] MEDS: lisinopril 5 MG TAB PO SCH (07:49)
[2023-01-23] MEDS: CALCIUM CARBONATE 1250MG TAB PO SCH (07:49)
[2023-01-23] MEDS: ESCITALOPRAM OXALATE 10 MG TAB PO SCH (07:49)
[2023-01-23] MEDS: MULTIVITAMIN TAB PO SCH (07:49)
[2023-01-23] MEDS: PANTOprazole 40 MG TAB PO SCH (07:49)
[2023-01-23] MEDS: APIXABAN 5 MG TABLET PO SCH ×2 (07:50→20:03)
[2023-01-23] MEDS: METOPROLOL TARTRATE 100 MG TAB PO SCH ×2 (07:50→20:02)
[2023-01-23] MEDS: MONTELUKAST SODIUM 10 MG TABLET PO SCH (07:50)
[2023-01-23] MEDS: buPROPion SR 150 MG TABCR PO SCH ×2 (07:50→20:02)
[2023-01-23] MEDS: FLUTICASONE FUROATE 200MCG 14 PUFFS/INHALER INH SCH (07:50)
[2023-01-23] MEDS: IPRATROPIUM BROMIDE NASAL SPRAY 0.06% 15ML NAE SCH ×2 (11:13→20:01)
[2023-01-24] MEDS: LEVOTHYROXINE SODIUM 112 MCG TABLET PO SCH (06:10)
[2023-01-24] MEDS: buPROPion SR 150 MG TABCR PO SCH (08:05)
[2023-01-24] MEDS: MULTIVITAMIN TAB PO SCH (08:05)
[2023-01-24] MEDS: APIXABAN 5 MG TABLET PO SCH (08:05)
[2023-01-24] MEDS: METOPROLOL TARTRATE 100 MG TAB PO SCH (08:05)
[2023-01-24] MEDS: CALCIUM CARBONATE 1250MG TAB PO SCH (08:06)
[2023-01-24] MEDS: CHOLECALCIFEROL 5,000 UNITS 125 MCG TAB PO SCH (08:06)
[2023-01-24] MEDS: IPRATROPIUM BROMIDE NASAL SPRAY 0.06% 15ML NAE SCH (08:06)
[2023-01-24] MEDS: MONTELUKAST SODIUM 10 MG TABLET PO SCH (08:06)
[2023-01-24] MEDS: FLUTICASONE FUROATE 200MCG 14 PUFFS/INHALER INH SCH (08:06)
[2023-01-24] MEDS: PANTOprazole 40 MG TAB PO SCH (08:06)
[2023-01-24] MEDS: ESCITALOPRAM OXALATE 10 MG TAB PO SCH (08:06)
[2023-01-24] MEDS: lisinopril 5 MG TAB PO SCH (08:06)
--- NOTE | 2023-01-24 09:41 | Discharge Summary ---
Date of Service January 24, 2023 Admission HPI Per Admitting Provider The patient is a 77-year-old female with a past medical history including hypothyroidism, hypertension, GERD, extrinsic asthma, depression, atrial fibrillation, anxiety, osteoporosis and knee osteoarthritis. She presents to the emergency department after persistent pain that initially began around 10 AM when she fell while outside feeding her cats. She has a known history of atrial fibrillation, and while in the emergency department during my assessment, was in atrial fibrillation with a rate of approximately 110 Admission Exam Per Admitting Provider The patient is awake, alert and oriented 3, well developed and well nourished, normocephalic and atraumatic, lying in bed and in no acute distress. HEENT--PERRL, EOMI, mucous membranes and oropharynx normal Neck--supple. No JVD. No bruits. Thyroid normal, trachea midline, no adenopathy. Heart--irregularly irregular and tachycardic. No murmurs, rubs or gallops. Lungs--clear bilaterally, no respiratory distress, no accessory muscle use. Abdomen--normal bowel sounds and soft. Nontender. Nondistended, no hernias or masses, no organomegaly. Extremities--no cyanosis or clubbing. Chronic lymphedema right lower extremity Dermatologic--ecchymoses at base of second through fourth digits of toes on the right Neurologic--cranial nerves II through XII grossly intact. Rheumatologic--normal range of motion, except for right lower extremity Psychiatric--normal affect. Principal Diagnosis multiple metatarsal fractures, Afib w/ RVR Discharge Exam Constitutional: well appearing, no acute distress HEENT: normocephalic, no conjunctival injection CV: irregularly irregular rhythm, regular rate, no murmur, no LE edema Respiratory: Clear to auscultation bilaterally. No rhonchi, wheezes, or crackl es. No increased work of breathing MSK: no gross deformities noted Skin: warm, dry, no rashes Neuro: alert, oriented, no FND noted Discharge Data Allergies Allergy/AdvReac Type Severity Reaction Status Date / Time hornet venom Allergy Severe ANAPHYLAXIS Verified 01/12/23 01:08 Sulfa (Sulfonamide Allergy Unknown UNKNOWN Verified 01/12/23 01:08 Antibiotics) bee venom protein (honey bee) AdvReac Severe Anaphylaxis--YELLOW Verified 11/22/23 01:08 JACKETS & HORNETS Consultations 01/12/23 01:24 ED Decision to Admit Stat 01/12/23 02:37 Consult Orthopedic Surgery Routine Ordered Studies 01/11/23 20:18 CT head/brain wo con Stat IMPRESSION: No acute intracranial hemorrhage, midline shift, or mass effect. Soft tissue lesion in the left orbit, measures approximately 1.5 x 0.8 cm. Consider orbit MRI for further evaluation. 01/11/23 21:53 CT foot RT wo con Stat IMPRESSION: 1. Nondisplaced fracture of the base of the second metatarsal. 2. Nondisplaced fracture at the base of the third metatarsal. 3. Nondisplaced fracture at the base of the fourth metatarsal. No fracture of the first metatarsal. No fracture of the fifth metatarsal. Nondisplaced fracture involving the dorsal, distal aspect of the medial cuneiform. Suspected, nondisplaced fracture of the medial malleolus. Mild widening of the Lisfranc articulation measuring 6 mm. This may be chronic in etiology. Hospital Course (1) Metatarsal fracture: Pt is a 77 yo female with PMH of osteoporosis, hypothyroidism, HTN, GERD, afib, and anxiety presenting with right ankle pain after a fall. Minimally displaced fractures of the base of the first, second, third, fourth and fifth metatarsals, and medial cuneiform and medical malleolus of right foot - continue walking boot with limited toe-touch weightbearing for 6 weeks; may remove to shower and sleep - continue acetaminophen 650 mg by mouth every 6 hours as needed for pain - will need crutches vs walker: PT/OT ordered- recommended acute rehab - will f/u with ortho (Dr. Ramachandran) as an outpatient in 1-2 weeks after discharge Atrial fibrillation - continue apixaban 5 mg BID, metoprolol 100 mg BID - afib with RVR noted on admission; likely due to late dosing of her metoprolol- rate controlled on her home regimen Soft tissue lesion in the left orbit - incidentally noted on CT of head upon admission, measuring 1.5 x 0.8 cm - suggestion of possible MRI of orbit for further evaluation; discussed with radiology and plan for outpatient ophthalmology evaluation - pt without symptoms HTN - continue lisinopril, metoprolol Extrinsic asthma - continue Arnuity Ellipta and montelukast Anxiety and depression - continue bupropion SR 100 mg BID and escitalopram 10 mg daily Hypothyroidism - continue levothyroxine Post nasal drip - ipratropium nasal spray PRN, may continue upon discharge PRN Hypomagnesium, resolved Diet: Full VTE ppx: Eliquis Code: full Dispo: [facility] (2) Fall: (3) Atrial fibrillation with RVR: (4) Atrial fibrillation: (5) Depression: (6) Hypertension: (7) Venous insufficiency: (8) Lymphedema of right lower extremity: (9) Anxiety disorder: Total Time Total Time Spent Total Time Spent (In Minutes): <30 Discharge Plan Discharge Items Patient Disposition: Transfer [facility] Reason For Visit: S/P FALL, A-FIB WITH RVR, FOOT FRACTURE Discharge Diagnosis: Right foot fracture Condition on Discharge: Good Activity: Per Instructions section Non-emergency contact: Primary Care Provider Call non-emergency contact if: you have any medication questions Follow-up/Referrals: [facility] [Provider Group] (incidental soft tissue lesion of left orbit) Jhony Ramires III, CRNP [Primary Care Provider] - Lio Ramachandran DO [Surgeon] - (f/u in 1-2 weeks for right foot fractures) Diet: Regular Addtl Attending Provider Instructions: Pt is a 77 yo female with PMH of osteoporosis, hypothyroidism, HTN, GERD, afib, and anxiety presenting with right ankle pain after a fall. Minimally displaced fractures of the base of the first, second, third, fourth and fifth metatarsals, and medial cuneiform and medical malleolus of right foot - continue walking boot with limited toe-touch weightbearing for 6 weeks; may remove to shower and sleep - continue acetaminophen 650 mg by mouth every 6 hours as needed for pain - will need crutches vs walker: PT/OT ordered- recommended acute rehab - will f/u with ortho (Dr. Ramachandran) as an outpatient in 1-2 weeks after discharge Atrial fibrillation - continue apixaban 5 mg BID, metoprolol 100 mg BID - afib with RVR noted on admission; likely due to late dosing of her metoprolol- rate controlled on her home regimen Soft tissue lesion in the left orbit - incidentally noted on CT of head upon admission, measuring 1.5 x 0.8 cm - suggestion of possible MRI of orbit for further evaluation; discussed with radiology and plan for outpatient ophthalmology evaluation - pt without symptoms HTN - continue lisinopril, metoprolol Extrinsic asthma - continue Arnuity Ellipta and montelukast Anxiety and depression - continue bupropion SR 100 mg BID and escitalopram 10 mg daily Hypothyroidism - continue levothyroxine Post nasal drip - ipratropium nasal spray PRN, may continue upon discharge PRN Hypomagnesium, resolved Diet: Full VTE Prophylaxis: Eliquis Code: full Dispo: [facility] Pending Studies at Discharge: No Stand-Alone Forms: My [facility] Skilled Items Patient informed of condition?: Yes DNR: No Discharge Level of Care: Skilled Communicable Disease: No Discharge Prognosis: Improving Lines: None Urinary Catheter: No Medications and DC Order Prescriptions: Continued Eliquis 5 mg tablet 5 mg PO BID Qty: 180 3RF calcium carbonate 600 mg calcium (1,500 mg) tablet 600 mg PO DAILY cholecalciferol (vitamin D3) 5,000 unit capsule 5,000 units PO DAILY bupropion HCl 150 mg tablet sustained-release 12 hr 150 mg PO BID Qty: 180 3RF lisinopril 5 mg tablet 5 mg PO DAILY Qty: 90 3RF metoprolol tartrate 100 mg tablet 100 mg PO BID Qty: 180 3RF omeprazole 20 mg capsule,delayed release(DR/EC) 20 mg PO DAILY Qty: 90 3RF escitalopram oxalate 10 mg tablet 10 mg PO DAILY Qty: 90 3RF montelukast 10 mg tablet 10 mg PO DAILY Qty: 90 3RF Pulmicort Flexhaler 180 mcg/actuation aerosol powdr breath activated 2 inh INH BID Qty: 1 11RF Rx Instructions: WITH A RINSE OF MOUTH AFTERWARDS epinephrine 0.3 mg/0.3 mL auto-injector 0.3 mg IM Q10M PRN (Reason: anaphylaxis) Qty: 2 3RF multivitamin Tablet 1 tab PO DAILY diclofenac sodium 1 % Gel 4 g TOPICAL QID PRN (Reason: Pain) levothyroxine 112 mcg tablet 112 mcg PO DAILYBB Discharge Orders: Discharge Order (Routine); Ordered 01/24/23 Ordered By: Brii Powers Admission Data Admit Date/Time: 01/14/23 12:14 Attending Provider: Rhett Iyer Admit Provider: Manfred Padron Primary Care Provider: Griel,Jhony C. III Other Providers: Manfred Padron; Lio Ramachandran; [facility]; [facility] [place]; [facility],; [facility]; Jose Carlos Paz. Other Interventions: Discharge Summary Assessment (RN) Last Done: 01/24/23 13:04 Supervising Physician Co-Signing Physician Notes I personally examined the patient and verified all lewis points of history and exam, discussed case, and agree with decision making with Dr Powers Has SNF bed available. No other new issues noted. Vitals noted, in general she is awake and alert pleasant no distress. HEENT normocephalic atraumatic mucous membranes moist. Breathing unlabored no accessory muscle use good effort. Skin shows no rashes no pallor or icterus. Neuro without focal deficits. Foot fractureSNF bed available. Stable to go. Otherwise as above. Resident Activity Tracking Resident Involvement: Resident Care Provided Care Provided: Adult Hospital Medicine
--- NOTE | 2023-01-24 18:53 | Billing Data ---
Date of Service January 24, 2023 Coding Level of Care Code 19617 IN/OBS DISCH 30 MIN/LESS
--- NOTE | 2023-02-01 06:48 | Coding Query ---
To promote full compliance with coding requirements relating to patient care, physician participation is requested in all cases of tubing oiler uncertainty. Please assist us with the question(s) below: Coding Question(s): It was noted throughout the record that the patient has/is suspected to have osteoporosis. According to coding guidelines "a code for osteoporotic fracture, and not a traumatic fracture, should be used for any patient with known osteoporosis who suffers a fracture, even if the patient had a minor fall or trauma, if that fall or trauma would not usually break a normal, healthy bone." Please indicate below the type of fracture: Physician's Response(s): ( x ) Osteoporotic fracture of (foot,ankle) - suspected osteoporotic fracture ( ) Traumatic fracture of (foot,ankle) ( ) Other, please specify MTDD
== END 2023-01-24 15:57 | DRG 563 ==
LOC: ED 20:05 → EDINP 20:05 → SUATTDRO 01-12 02:33 → 4W 01-12 03:41 → 3N 01-14 01:38 → SUATTDRO 01-14 12:14

== ENCOUNTER 2023-11-16 19:34 | Inpatient (IN) ==
[2023-11-16 20:16] LABS: Basophils # (auto) 0.01 K/uL (0.00-0.20); Basophils % (auto) 0.2 %; Hematocrit (blood only) 35.5 % (37.0-47.0); Immature Granulocytes # (auto) 0.01 K/uL (0.01-0.20); Immature Granulocytes % (auto) 0.2 %; Lymphocytes # (auto) 0.36 K/uL (1.20-3.40); Lymphocytes % (auto) 8.9 %; Mean Corpuscular Hemoglobin 30.4 pg (25.0-34.0); Mean Corpuscular Hgb Conc 33.8 g/dL (32.0-36.0); Mean Corpuscular Volume 89.9 fL (80.0-100.0); Mean Platelet Volume 10.6 fL (9.4-12.4); Monocytes # (auto) 0.31 K/uL (0.11-0.59); Monocytes % (auto) 7.7 %; Neutrophils # (auto) 3.36 K/uL (1.40-6.50); Platelet Count 153 K/uL (130-400); RDW Coefficient of Variation 14.1 % (11.5-14.5); Red Blood Count 3.95 M/uL (4.20-5.40); White Blood Count 4.05 K/ul (4.8-10.8)
[2023-11-16] MEDS: ACETAMINOPHEN 1,000 MG/100 ML VIAL IV STA (20:19)
--- NOTE | 2023-11-16 20:19 | Emergency Department Note ---
History of Present Illness General Chief complaint: GI Assessment Stated complaint: NAUSEA, DIARRHEA X COUPLE DAYS Time Seen by Provider: 11/16/23 20:00 History of Present Illness Provider Complaint: + nausea, + vomiting, + diarrhea and + abdominal pain Onset (ago): day(s) 4 Description of Vomiting: no bilious, no blood-streaked, no bloody or no coffee grounds Description of Diarrhea: no mucousy, no tarry, no blood-streaked or no bloody (bright red) Associated Abdominal Pain: Yes Location of pain: + diffuse Severity: mild Maximum Pain Intensity: 3 Current Pain Intensity: 3 Pain Consistency: + intermittent Relieved By: + medication (Imodium) Exacerbated By: + bowel movement Context: no foreign travel, no possible food poisoning, no sick contacts, no recent antibiotic use, no recent surgery/procedure, no alcohol abuse, no trauma, no anticoagulant use, no NSAID use, no self induced, no smoking, no new medication or no marijuana use Associated symptoms: + fever/chills; no myalgias, no chest pain, no cough, no diaphoresis, no headaches, no malaise, no nausea/vomiting, no rash, no dysuria, no shortness of breath, no syncope, no weakness, no anxiety or no numbness Home Medications Medication Instructions Recorded Confirmed Type cholecalciferol (vitamin D3) 125 5,000 units PO DAILY 10/31/18 11/16/23 History mcg (5,000 unit) capsule budesonide 180 mcg/actuation 2 inh inhalation BID #1 ea 11/04/22 11/16/23 Rx breath activated powder inhaler (Pulmicort Flexhaler) epinephrine 0.3 mg/0.3 mL 0.3 mg (0.3 mL) IM Q10M PRN 11/04/22 11/16/23 Rx injection, auto-injector anaphylaxis #2 ea diclofenac sodium 1 % topical gel 4 g topical QID PRN Pain 01/12/23 11/16/23 History multivitamin 1 tab PO DAILY 01/12/23 11/16/23 History calcium carbonate 600 mg PO DAILY 02/16/23 11/16/23 History levothyroxine 112 mcg tablet 112 mcg PO DAILYBB #90 tabs 03/28/23 11/16/23 Rx metoprolol tartrate 100 mg tablet 100 mg PO BID #180 tabs 08/08/23 11/16/23 Rx apixaban 5 mg tablet (Eliquis) 5 mg PO BID #180 tabs 08/15/23 11/16/23 Rx bupropion HCl 150 mg tablet,12 hr 150 mg PO BID #180 ea 08/15/23 11/16/23 Rx sustained-release escitalopram oxalate 10 mg tablet 10 mg PO DAILY #90 tabs 08/15/23 11/16/23 Rx lisinopril 5 mg tablet 5 mg PO DAILY #90 tabs 08/19/23 11/16/23 Rx omeprazole 20 mg capsule,delayed 20 mg PO DAILY #90 caps 08/19/23 11/16/23 Rx release montelukast 10 mg tablet 10 mg PO HS 11/16/23 11/16/23 History Allergies Allergy/AdvReac Type Severity Reaction Status Date / Time hornet venom Allergy Severe ANAPHYLAXIS Verified 08/29/23 15:16 Sulfa (Sulfonamide Allergy Unknown UNKNOWN Verified 08/29/23 15:16 Antibiotics) bee venom protein (honey bee) AdvReac Severe Anaphylaxis--YELLOW Verified 08/29/23 15:16 JACKETS & HORNETS Past Med/Surg History Problem List (Updated 11/17/23 @ 00:38 by Christo Prabhakar MD) Pneumonia (Acute) Hypoxia (Acute) Osteoarthritis of ankle, right Lisfranc's sprain Closed fracture of medial malleolus of right ankle (01/11/23) from a fall Closed fracture of tarsal bone of right foot (01/11/23) from a fall Closed fracture of base of metatarsal bone of right foot (01/11/23) from a fall Lymphedema of right lower extremity Atrial fibrillation with RVR Metatarsal fracture (Acute 01/11/23) from a fall Skin lesion of face Venom-induced anaphylaxis Rectal bleeding Incomplete defecation Vitamin D deficiency (Chronic) Venous insufficiency (Chronic) 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 (Chronic) Mineral deficiency (Chronic) Hypothyroidism (Chronic) Hypomagnesemia (Chronic) Hypertension (Chronic) Gastroesophageal reflux disease (Chronic) Extrinsic asthma (Chronic) Edema (Chronic) Depression (Chronic) Chronic diarrhea (Chronic) Atrial fibrillation (Chronic) Anxiety disorder (Chronic) Allergic rhinitis (Chronic) Abnormal mammography (Chronic) Medical History (Updated 11/17/23 @ 00:38 by Christo Prabhakar MD) Fall History of mitral valve disease Surgical History H/O breast surgery S/P tubal ligation S/P abdominoplasty History of repair of hiatal hernia Family History Father Colorectal cancer Other Osteoporosis Denies family history of Ovarian cancer Prostate cancer Crohn's disease Myocardial infarction Breast cancer Social History Smoking Status: Never smoker Tobacco Type: Cigarettes Age Started Using Tobacco: 18; Second Hand Exposure: No; Do You Dip or Chew Tobacco: No; Hx Alcohol Use: No Hx Substance Use: No Preferred Language: Pakistani Communication Ability: Effective Visual Impairment: No Limitations Hearing Ability: Normal Shuttle Repairer Required: No Beliefs That Will Affect Care: None marital status: Current Living Situation: Spouse current occupational status: retired current occupation: LABOROR How many Children do You have: 0 Feels Safe at Home: Yes Childhood Exposure to Second-Hand Smoke: Yes Diet: regular Diet Comment: regular caffeine: Yes during the past year weight has: decreased > 10 lbs Dental Care, Regularly: No Physical Activity Frequency: Does not Exercise Seatbelt Use: always Sunscreen Use: Yes Assistive Devices: Cane Physical Exam 2 Vital Signs: Vital Signs - 24 hr 11/16/23 19:45 11/16/23 20:03 11/16/23 20:06 Temperature 38.1 C H Temperature Source Oral Pulse Rate 80 88 90 Pulse Rate [Right Finger] Pulse Rate from Sp O2 Sensor 95 H Respiratory Rate 16 24 Respiratory Effort / Characteristics Non-Labored Sponta neous Respiratory Depth Normal Respiratory Patter n Regular Blood Pressure 148/96 H Blood Pressure [Ri ght Arm] Blood Pressure Brandee n 113 Blood Pressure Brandee n [Right Arm] Pulse Oximetry 91 95 Oxygen Delivery Me thod Room Air Oxygen Flow Rate Sepsis Recent Feve r Within 48 Hours Yes Sepsis New/Unexpla ined Change in Men donte Status N/A Sepsis Action Take n by Nursing No Action Required Oxygen Flow Rate - Titration Pulse Oximetry Pos t Tiitration 11/16/23 20:30 11/16/23 20:31 11/16/23 20:45 Temperature Temperature Source Pulse Rate 89 Pulse Rate [Right Finger] Pulse Rate from Sp O2 Sensor Respiratory Rate 18 Respiratory Effort / Characteristics Respiratory Depth Respiratory Patter n Blood Pressure Blood Pressure [Ri ght Arm] Blood Pressure Brandee n Blood Pressure Brandee n [Right Arm] Pulse Oximetry 89 L 94 Oxygen Delivery Me thod Room Air Nasal Can nula Nasal Cannula Oxygen Flow Rate 0 1 Sepsis Recent Feve r Within 48 Hours Sepsis New/Unexpla ined Change in Men donte Status Sepsis Action Take n by Nursing Oxygen Flow Rate - Titration 1 Pulse Oximetry Pos t Tiitration 94 11/16/23 20:51 11/16/23 21:00 11/16/23 21:00 Temperature Temperature Source Pulse Rate 92 H Pulse Rate [Right Finger] Pulse Rate from Sp O2 Sensor 91 H Respiratory Rate 21 Respiratory Effort / Characteristics Respiratory Depth Respiratory Patter n Blood Pressure 134/74 134/74 Blood Pressure [Ri ght Arm] Blood Pressure Brandee n 86 86 Blood Pressure Brandee n [Right Arm] Pulse Oximetry 91 Oxygen Delivery Me thod Oxygen Flow Rate Sepsis Recent Feve r Within 48 Hours Sepsis New/Unexpla ined Change in Men donte Status Sepsis Action Take n by Nursing Oxygen Flow Rate - Titration Pulse Oximetry Pos t Tiitration 11/16/23 21:12 11/16/23 21:30 11/16/23 21:30 Temperature Temperature Source Pulse Rate 94 H Pulse Rate [Right Finger] Pulse Rate from Sp O2 Sensor 96 H Respiratory Rate 31 H Respiratory Effort / Characteristics Respiratory Depth Respiratory Patter n Blood Pressure 113/69 113/69 Blood Pressure [Ri ght Arm] Blood Pressure Brandee n 82 82 Blood Pressure Brandee n [Right Arm] Pulse Oximetry 93 Oxygen Delivery Me thod Oxygen Flow Rate Sepsis Recent Feve r Within 48 Hours Sepsis New/Unexpla ined Change in Men donte Status Sepsis Action Take n by Nursing Oxygen Flow Rate - Titration Pulse Oximetry Pos t Tiitration 11/16/23 21:30 11/16/23 21:57 11/16/23 21:57 Temperature 37.7 C H Temperature Source Oral Pulse Rate 84 95 H Pulse Rate [Right Finger] Pulse Rate from Sp O2 Sensor 88 100 H Respiratory Rate 31 H 23 Respiratory Effort / Characteristics Respiratory Depth Respiratory Patter n Blood Pressure Blood Pressure [Ri ght Arm] Blood Pressure Brandee n Blood Pressure Brandee n [Right Arm] Pulse Oximetry 92 94 Oxygen Delivery Me thod Nasal Cannula Oxygen Flow Rate 1 Sepsis Recent Feve r Within 48 Hours Sepsis New/Unexpla ined Change in Men donte Status Sepsis Action Take n by Nursing Oxygen Flow Rate - Titration Pulse Oximetry Pos t Tiitration 11/16/23 22:00 11/16/23 22:00 11/16/23 22:09 Temperature Temperature Source Pulse Rate 94 H Pulse Rate [Right Finger] Pulse Rate from Sp O2 Sensor 92 H Respiratory Rate 20 Respiratory Effort / Characteristics Respiratory Depth Respiratory Patter n Blood Pressure 114/68 114/68 Blood Pressure [Ri ght Arm] Blood Pressure Brandee n 96 96 Blood Pressure Brandee n [Right Arm] Pulse Oximetry 95 Oxygen Delivery Me thod Nasal Cannula Oxygen Flow Rate 1 Sepsis Recent Feve r Within 48 Hours Sepsis New/Unexpla ined Change in Men donte Status Sepsis Action Take n by Nursing Oxygen Flow Rate - Titration Pulse Oximetry Pos t Tiitration 11/16/23 22:30 11/16/23 22:30 11/16/23 22:30 Temperature Temperature Source Pulse Rate 96 H Pulse Rate [Right Finger] Pulse Rate from Sp O2 Sensor 99 H Respiratory Rate 21 Respiratory Effort / Characteristics Respiratory Depth Respiratory Patter n Blood Pressure 113/73 113/73 Blood Pressure [Ri ght Arm] Blood Pressure Brandee n 76 76 Blood Pressure Brandee n [Right Arm] Pulse Oximetry Oxygen Delivery Me thod Oxygen Flow Rate Sepsis Recent Feve r Within 48 Hours Sepsis New/Unexpla ined Change in Men donte Status Sepsis Action Take n by Nursing Oxygen Flow Rate - Titration Pulse Oximetry Pos t Tiitration 11/16/23 23:14 11/16/23 23:20 11/17/23 00:22 Temperature Temperature Source Pulse Rate Pulse Rate [Right Finger] 95 H 98 H Pulse Rate from Sp O2 Sensor Respiratory Rate 18 17 Respiratory Effort / Characteristics Respiratory Depth Respiratory Patter n Blood Pressure Blood Pressure [Ri ght Arm] 125/71 115/88 Blood Pressure Brandee n Blood Pressure Brandee n [Right Arm] 89 97 Pulse Oximetry 87 L 96 98 Oxygen Delivery Me thod Nasal Cannula Nasal Cannula Oxygen Flow Rate 1 2 Sepsis Recent Feve r Within 48 Hours Sepsis New/Unexpla ined Change in Men donte Status Sepsis Action Take n by Nursing Oxygen Flow Rate - Titration 2.5 Pulse Oximetry Pos t Tiitration 92 Physical Exam: Physical Exam GENERAL: oriented to person, place, and time. appears well-developed and well- nourished. She does not appear distressed. HENT: Exam performed. -Head: Normocephalic and atraumatic. -Right Ear: External ear normal. No mastoid erythema -Left Ear: External ear normal. No mastoid erythema -Mouth/Throat: The oropharynx is clear and moist. No trismus in the jaw. No dental abscesses or uvula swelling. No oropharyngeal exudate or tonsillar abscesses. EYES: Conjunctivae and EOM are normal.Right eye exhibits no discharge. Left eye exhibits no discharge. No scleral icterus. NECK: Normal range of motion. Neck supple. No JVD present. No tracheal deviation and normal range of motion present. CV: Normal rate, irregular rhythm, normal heart sounds and intact distal pulses. There is no peripheral edema. Palpable radial pulses bue. PULM/CHEST: Effort normal and breath sounds normal. No respiratory distress. No stridor. no wheezes.no rales. -Chest Wall: no tenderness to palpation ABD: The abdomen is soft. Bowel sounds are normal. no distension. No mass is present. There is no tenderness. There is no rebound, no guarding, no Orozco's sign and no tenderness at McBurney's point. Rovsig negative MUSC/SKEL: Normal range of motion. There is no peripheral edema, tenderness or deformity. NEURO: Motor and sensation grossly intact. SKIN: Skin is warm and dry. not diaphoretic. PSYCH: normal mood and affect. Behavior is normal. Judgment and thought content normal. Course Course 1999: The patient was evaluated in room C9. A complete history and physical exam was performed Cardiac monitoring: An order was placed for continuous cardiac monitoring. The monitor shows a rate of 90 with atrial fibrilation rhythm interpreted by mo 2030: Patient became hypoxic on room air. Supplemental oxygen applied via nasal cannula. 2154: Vital signs stable on supplemental oxygen via nasal cannula. Labs show white blood cell count 4.05. VBG shows a venous pH of 7.44 with venous pCO2 of 40 venous bicarb 27. Lactic 1.1. Total bilirubin 1.4. Direct bilirubin 0.3. Alkaline phosphatase 163. BioFire negative. Urinalysis and CT scan pending. Chest x-ray shows a right-sided infiltrate. Patient treated with Zosyn. 2255: Vital signs stable on supplemental oxygen. CT shows a possible cholecystitis. Ultrasound ordered for the patient. 0034: Vital signs stable on supplemental oxygen. Ultrasound viewed by me shows gallstones but no gallbladder wall thickening, patient does not examine like acute cholecystitis. Patient will be admitted to the [facility] team Dr. Teran's team notified and will evaluate the patient for admission. Administered Medications Sodium Chloride (Nss) 500 mls @ 125 mls/hr IV .Q4H CHRISSY Stop: 12/16/23 19:59 Last Admin: 11/16/23 20:20 Dose: 125 mls/hr Documented By: GLENYS Discontinued Medications Acetaminophen (Ofirmev) 1,000 mg in 100 mls @ 400 mls/hr IV NOW STA Stop: 11/16/23 20:20 Last Infusion: 11/16/23 20:47 Dose: Infused Documented By: Admin: 11/16/23 20:19 Dose: 400 mls/hr Documented By: GLENYS Ceftriaxone Sodium (Rocephin) 2,000 mg in 50 mls @ 100 mls/hr IV NOW STA Stop: 11/16/23 22:20 Last Admin: 11/16/23 21:58 Dose: Not Given Documented By: GLENYS Azithromycin 500 mg/ Dextrose 255 mls @ 127.5 mls/hr IV NOW STA Stop: 11/16/23 23:50 Last Admin: 11/16/23 21:58 Dose: Not Given Documented By: GLENYS Piperacillin Sod/Tazobactam Sod (Zosyn) 4.5 gm in 120 mls @ 240 mls/hr IV NOW ONE Stop: 11/16/23 22:24 Last Infusion: 11/16/23 22:55 Dose: Infused Documented By: Admin: 11/16/23 21:58 Dose: 240 mls/hr Documented By: GLENYS Ioversol (Optiray 320 100ml) 89 ml IV ONCE ONE Stop: 11/16/23 21:49 Last Admin: 11/16/23 21:48 Dose: 89 ml Documented By: MINDA Medical Decision Making Laboratory Data Attestation: I reviewed the patient's lab results. 11/16/23 19:58 11/16/23 19:58 Lab Results 11/16/23 11/16/23 11/16/23 Range/Units 19:58 20:18 20:19 WBC 4.05 L (4.8-10.8) K/ul RBC 3.95 L (4.20-5.40) M/uL Hgb 12.0 (12.0-16.0) g/dl Hct 35.5 L (37.0-47.0) % MCV 89.9 (80.0-100.0) fL MCH 30.4 (25.0-34.0) pg MCHC 33.8 (32.0-36.0) g/dL RDW Std Deviation 47.0 H (36.4-46.3) fL RDW Coeff of Naila 14.1 (11.5-14.5) % Plt Count 153 (130-400) K/uL MPV 10.6 (9.4-12.4) fL Immature Gran % (Auto) 0.2 % Neut % (Auto) 83.0 % Lymph % (Auto) 8.9 % [place] % (Auto) 7.7 % Eos % (Auto) 0.0 % Baso % (Auto) 0.2 % Neut # (Auto) 3.36 (1.40-6.50) K/uL Lymph # (Auto) 0.36 L (1.20-3.40) K/uL [place] # (Auto) 0.31 (0.11-0.59) K/uL Eos # (Auto) 0.00 (0.00-0.50) K/uL Baso # (Auto) 0.01 (0.00-0.20) K/uL Immature Gran # (Auto) 0.01 (0.01-0.20) K/uL PT 13.5 H (9.0-12.0) Seconds INR 1.3 H (0.9-1.1) APTT 33 H (21-31) Seconds PTT Ratio 1.2 VBG pH 7.44 H (7.36-7.41) VBG pCO2 40 (38-50) mmHg VBG pO2 34 mmHg VBG HCO3 27 mmol/L VBG O2 Saturation 65.1 % VBG Base Excess 2.8 mEq/L Sodium 136 (136-145) mmol/L Potassium 3.6 (3.5-5.1) mmol/L Chloride 100 (98-107) mmol/L Carbon Dioxide 27 (21-32) mmol/L Anion Gap 9 (3-11) BUN 17 (6-23) mg/dl Creatinine 0.71 (0.6-1.2) mg/dl Est Cr Clr Drug Dosing 67.7 ml/min Est GFR ( Amer) 93.2 ml/min Est GFR (Non-Af Amer) 80.4 ml/min BUN/Creatinine Ratio 23.9 H (10-20) Glucose 132 H (70-99(Fasting)) mg/dl Lactate 1.1 (0.4-2.0) mmol/L Calcium 9.0 (8.6-10.3) mg/dl Total Bilirubin 1.4 H (0.2-1.0) mg/dl Direct Bilirubin 0.3 H (0-0.2) mg/dl AST 38 (13-39) U/L ALT 20 (7-52) U/L Alkaline Phosphatase 163 H (34-104) U/L Total Protein 6.5 (6.0-8.3) gm/dl Albumin 3.4 (3.4-5.0) gm/dl Lipase 45 (11-82) U/L Stl C. cayetanensis PCR (NotDetected) Stool Rotavirus A PCR (NotDetected) Stl Adenov F 40/41 PCR (NotDetected) Stool Astrovirus (PCR) (NotDetected) Stool Campylobacter PCR (NotDetected) Stl C. diff Tox B Gene (Neg) Stool Cryptosporidium PCR (NotDetected) Stl E.coli Shiga Tox PCR (NotDetected) Stl Enterotoxigenic E PCR (NotDetected) Stool EPEC (PCR) (NotDetected) Stool EAEC (PCR) (NotDetected) Stl E. histolytica PCR (NotDetected) Stool Giardia Lamblia PCR (NotDetected) Stool Salmonella PCR (NotDetected) Stool Sapovirus (PCR) (NotDetected) Stl P. shigelloides PCR (NotDetected) Stl Shigella/EIEC PCR (NotDetected) St Y.enterocolitica PCR (NotDetected) Stool Vibrio (PCR) (NotDetected) Stl Vibrio cholerae PCR (NotDetected) Stl Norovirus GI/GII PCR (NotDetected) Adenovirus (PCR) Not Detected (NotDetected) B. pertussis DNA (PCR) Not Detected (NotDetected) B.parapertussis DNA PCR Not Detected (NotDetected) C. pneumoniae DNA (PCR) Not Detected (NotDetected) Coronavirus OC43 (PCR) Not Detected (NotDetected) Coronavirus HKU1 (PCR) Not Detected (NotDetected) Coronavirus 229E (PCR) Not Detected (NotDetected) SARS-CoV-2 (PCR) Not Detected (NotDetected) Coronavirus NL63 (PCR) Not Detected (NotDetected) Human Metapneumovir PCR Not Detected (NotDetected) Influenza Type A (PCR) Not Detected (NotDetected) Influenza Type B (PCR) Not Detected (NotDetected) M. pneumoniae (PCR) Not Detected (NotDetected) Parainfluenza 1 (PCR) Not Detected (NotDetected) Parainfluenza 2 (PCR) Not Detected (NotDetected) Parainfluenza 3 (PCR) Not Detected (NotDetected) Parainfluenza 4 (PCR) Not Detected (NotDetected) RSV (PCR) Not Detected (NotDetected) Entero/Rhino (PCR) Not Detected (NotDetected) 11/16/23 Range/Units 20:43 WBC (4.8-10.8) K/ul RBC (4.20-5.40) M/uL Hgb (12.0-16.0) g/dl Hct (37.0-47.0) % MCV (80.0-100.0) fL MCH (25.0-34.0) pg MCHC (32.0-36.0) g/dL RDW Std Deviation (36.4-46.3) fL RDW Coeff of Naila (11.5-14.5) % Plt Count (130-400) K/uL MPV (9.4-12.4) fL Immature Gran % (Auto) % Neut % (Auto) % Lymph % (Auto) % [place] % (Auto) % Eos % (Auto) % Baso % (Auto) % Neut # (Auto) (1.40-6.50) K/uL Lymph # (Auto) (1.20-3.40) K/uL [place] # (Auto) (0.11-0.59) K/uL Eos # (Auto) (0.00-0.50) K/uL Baso # (Auto) (0.00-0.20) K/uL Immature Gran # (Auto) (0.01-0.20) K/uL PT (9.0-12.0) Seconds INR (0.9-1.1) APTT (21-31) Seconds PTT Ratio VBG pH (7.36-7.41) VBG pCO2 (38-50) mmHg VBG pO2 mmHg VBG HCO3 mmol/L VBG O2 Saturation % VBG Base Excess mEq/L Sodium (136-145) mmol/L Potassium (3.5-5.1) mmol/L Chloride (98-107) mmol/L Carbon Dioxide (21-32) mmol/L Anion Gap (3-11) BUN (6-23) mg/dl Creatinine (0.6-1.2) mg/dl Est Cr Clr Drug Dosing ml/min Est GFR ( Amer) ml/min Est GFR (Non-Af Amer) ml/min BUN/Creatinine Ratio (10-20) Glucose (70-99(Fasting)) mg/dl Lactate (0.4-2.0) mmol/L Calcium (8.6-10.3) mg/dl Total Bilirubin (0.2-1.0) mg/dl Direct Bilirubin (0-0.2) mg/dl AST (13-39) U/L ALT (7-52) U/L Alkaline Phosphatase (34-104) U/L Total Protein (6.0-8.3) gm/dl Albumin (3.4-5.0) gm/dl Lipase (11-82) U/L Stl C. cayetanensis PCR Not Detected (NotDetected) Stool Rotavirus A PCR Not Detected (NotDetected) Stl Adenov F 40/41 PCR Not Detected (NotDetected) Stool Astrovirus (PCR) Not Detected (NotDetected) Stool Campylobacter PCR Not Detected (NotDetected) Stl C. diff Tox B Gene Negative Cdiff Gene (Neg) Stool Cryptosporidium PCR Not Detected (NotDetected) Stl E.coli Shiga Tox PCR Not Detected (NotDetected) Stl Enterotoxigenic E PCR Not Detected (NotDetected) Stool EPEC (PCR) Not Detected (NotDetected) Stool EAEC (PCR) Not Detected (NotDetected) Stl E. histolytica PCR Not Detected (NotDetected) Stool Giardia Lamblia PCR Not Detected (NotDetected) Stool Salmonella PCR Not Detected (NotDetected) Stool Sapovirus (PCR) Not Detected (NotDetected) Stl P. shigelloides PCR Not Detected (NotDetected) Stl Shigella/EIEC PCR Not Detected (NotDetected) St Y.enterocolitica PCR Not Detected (NotDetected) Stool Vibrio (PCR) Not Detected (NotDetected) Stl Vibrio cholerae PCR Not Detected (NotDetected) Stl Norovirus GI/GII PCR Not Detected (NotDetected) Adenovirus (PCR) (NotDetected) B. pertussis DNA (PCR) (NotDetected) B.parapertussis DNA PCR (NotDetected) C. pneumoniae DNA (PCR) (NotDetected) Coronavirus OC43 (PCR) (NotDetected) Coronavirus HKU1 (PCR) (NotDetected) Coronavirus 229E (PCR) (NotDetected) SARS-CoV-2 (PCR) (NotDetected) Coronavirus NL63 (PCR) (NotDetected) Human Metapneumovir PCR (NotDetected) Influenza Type A (PCR) (NotDetected) Influenza Type B (PCR) (NotDetected) M. pneumoniae (PCR) (NotDetected) Parainfluenza 1 (PCR) (NotDetected) Parainfluenza 2 (PCR) (NotDetected) Parainfluenza 3 (PCR) (NotDetected) Parainfluenza 4 (PCR) (NotDetected) RSV (PCR) (NotDetected) Entero/Rhino (PCR) (NotDetected) Imaging Data Attestation: I personally reviewed and interpreted this imaging study as follows: My Impression: Chest x-ray: Right-sided infiltrate Ultrasound gallbladder. Gallstones but no cholecystitis. No gallbladder wall thickening. Radiologist's Impression: Abdomen/Pelvis CT 11/16/23 20:05 Exam(s): CT ABDOMEN + PELVIS With Contrast IV Amt: 89ml EXAM: CT Abdomen and Pelvis With Intravenous Contrast CLINICAL HISTORY: Fever with nausea and vomiting. TECHNIQUE: Axial computed tomography images of the abdomen and pelvis with intravenous contrast. CTDI is 26.38 mGy and DLP is 1307.82 mGy-cm. Automated exposure control was utilized for the study. A dose lowering technique was utilized adhering to the principles of ALARA. CONTRAST: Patient received 89ml of IV contrast COMPARISON: CT abdomen and pelvis 09/22/2006 FINDINGS: Lung bases: Unremarkable. No mass. No consolidation. Pleural space: Trace bilateral pleural effusions. Mediastinum: Moderate hiatal hernia. ABDOMEN: Liver: Unremarkable. No mass. Gallbladder and bile ducts: Prominent gallbladder. Suspect cholelithiasis. Pancreas: Unremarkable. No mass. No ductal dilation. Spleen: Unremarkable. No splenomegaly. Adrenals: Unremarkable. No mass. Kidneys and ureters: Unremarkable. No solid mass. No hydronephrosis. Stomach and bowel: Thickening of the wall of the transverse and rectosigmoid colon versus nondistention. Diverticulosis. PELVIS: Appendix: No findings to suggest acute appendicitis. Bladder: Unremarkable. No mass. Reproductive: Hysterectomy. ABDOMEN and PELVIS: Intraperitoneal space: Unremarkable. No free air. No significant fluid collection. Bones/joints: Age indeterminant moderate T12 mild L1 compression fractures. No dislocation. Soft tissues: Bilateral breast prosthesis are partially visualized. Vasculature: Mild atherosclerosis. No abdominal aortic aneurysm. Lymph nodes: Unremarkable. No enlarged lymph nodes. IMPRESSION: 1. Thickening of the wall of the transverse and rectosigmoid colon versus nondistention. This could be seen with nonspecific colitis. No bowel obstruction. 2. Prominent gallbladder. Suspect cholelithiasis. Consider further evaluation with gallbladder ultrasound. 3. Diverticulosis. 4. Age indeterminant moderate T12 mild L1 compression fractures. 5. Moderate hiatal hernia. 6. Trace bilateral pleural effusions. Electronically signed by: Elli Barahona MD 11/16/23 22:50 PM ECG Data Attestation: I personally reviewed and interpreted this ECG as follows: Rate (beats per minute): 92 Rhythm: atrial fibrillation Findings: no ST depression, no ST elevation or no prolonged QT MDM Narrative 1999: The patient was evaluated in room C9. A complete history and physical exam was performed Cardiac monitoring: An order was placed for continuous cardiac monitoring. The monitor shows a rate of 90 with atrial fibrilation rhythm interpreted by me 2030: Patient became hypoxic on room air. Supplemental oxygen applied via nasal cannula. 2154: Vital signs stable on supplemental oxygen via nasal cannula. Labs show white blood cell count 4.05. VBG shows a venous pH of 7.44 with venous pCO2 of 40 venous bicarb 27. Lactic 1.1. Total bilirubin 1.4. Direct bilirubin 0.3. Alkaline phosphatase 163. BioFire negative. Urinalysis and CT scan pending. Chest x-ray shows a right-sided infiltrate. Patient treated with Zosyn. 2255: Vital signs stable on supplemental oxygen. CT shows a possible cholecystitis. Ultrasound ordered for the patient. 0034: Vital signs stable on supplemental oxygen. Ultrasound viewed by me shows gallstones but no gallbladder wall thickening, patient does not examine like acute cholecystitis. Patient will be admitted to the [facility]ist team Dr. Teran's team notified and will evaluate the patient for admission. Impression & Plan Hypoxia, Pneumonia Critical Care Time Critical Care Time: Yes Total Critical Care Time: 37 I have personally spent greater than 37 minutes of critical care time in the direct management of this patient. This includes bedside care, interpretation of diagnostic studies, and testing, discussion with consultants, patient, and family members, and other required patient management activities. This 37 minutes is in excess of all separately billable procedures. Discharge Plan Visit Data Chief Complaint: GI Assessment Stated Complaint: NAUSEA, DIARRHEA X COUPLE DAYS ED Provider: Christo Prabhakar Discharge Problem: Hypoxia, Pneumonia Patient Disposition: Admitted As Inpatient Forms Stand Alone Forms: My [facility] Prescriptions Prescriptions: No Action calcium carbonate 600 mg calcium (1,500 mg) tablet 600 mg PO DAILY Patient Comments: Per pt, it is PRN levothyroxine 112 mcg tablet 112 mcg PO DAILYBB Qty: 90 3RF metoprolol tartrate 100 mg tablet 100 mg PO BID Qty: 180 3RF Eliquis 5 mg tablet 5 mg PO BID Qty: 180 3RF bupropion HCl 150 mg tablet sustained-release 12 hr 150 mg PO BID Qty: 180 3RF escitalopram oxalate 10 mg tablet 10 mg PO DAILY Qty: 90 3RF omeprazole 20 mg capsule,delayed release(DR/EC) 20 mg PO DAILY Qty: 90 3RF lisinopril 5 mg tablet 5 mg PO DAILY Qty: 90 3RF cholecalciferol (vitamin D3) 5,000 unit capsule 5,000 units PO DAILY Pulmicort Flexhaler 180 mcg/actuation aerosol powdr breath activated 2 inh INH BID Qty: 1 11RF Rx Instructions: WITH A RINSE OF MOUTH AFTERWARDS epinephrine 0.3 mg/0.3 mL auto-injector 0.3 mg IM Q10M PRN (Reason: anaphylaxis) Qty: 2 3RF multivitamin Tablet 1 tab PO DAILY diclofenac sodium 1 % Gel 4 g TOPICAL QID PRN (Reason: Pain) montelukast 10 mg tablet 10 mg PO HS Referrals Referrals: Jhony Ramires III, CRNP [Primary Care Provider] - Discharge Problem: Pneumonia Qualifiers: Pneumonia type: due to unspecified organism Laterality: right Lung location: u nspecified part of lung Qualified Code(s): J18.9 - Pneumonia, unspecified organism
[2023-11-16] MEDS: SODIUM CHLORIDE 0.9% 500 ML IV SCH (20:20)
[2023-11-16 20:28] LABS: Base Excess VBG 2.8 mEq/L; HCO3 VBG 27 mmol/L; Oxygen Saturation VBG 65.1 %; PCO2 VBG 40 mmHg (38-50); PO2 VBG 34 mmHg; pH VBG 7.44 (7.36-7.41)
[2023-11-16 20:32] LABS: Albumin Level 3.4 gm/dl (3.4-5.0); BUN Creatinine Ratio 23.9 (10-20); Bilirubin Direct 0.3 mg/dl (0-0.2); Bilirubin,Total 1.4 mg/dl (0.2-1.0); Creatinine Clr Calc Pharmacy 67.7 ml/min; Est GFR (African American) 93.2 ml/min; Est GFR (Non-African American) 80.4 ml/min; Potassium 3.6 mmol/L (3.5-5.1); Total Protein 6.5 gm/dl (6.0-8.3)
[2023-11-16 20:53] LABS: INR 1.3 (0.9-1.1); Partial Thromboplastin Ratio 1.2; Partial Thromboplastin Time 33 Seconds (21-31); Prothrombin Time 13.5 Seconds (9.0-12.0)
[2023-11-16 21:40] LABS: Adenovirus PCR Not Detected (NotDetected); Bordetella parapertussis PCR Not Detected (NotDetected); Bordetella pertussis PCR Not Detected (NotDetected); Chlamydia pneumoniae PCR Not Detected (NotDetected); Coronavirus 229E PCR Not Detected (NotDetected); Coronavirus CoV-2 (COVID19)PCR Not Detected (NotDetected); Coronavirus HKU1 PCR Not Detected (NotDetected); Coronavirus NL63 PCR Not Detected (NotDetected); Coronavirus OC43PCR Not Detected (NotDetected); Human Metapneumovirus PCR Not Detected (NotDetected); Influenza A PCR Not Detected (NotDetected); Influenza B PCR Not Detected (NotDetected); Mycoplasma pneumoniae PCR Not Detected (NotDetected); Parainfluenza Virus 1 PCR Not Detected (NotDetected); Parainfluenza Virus 2 PCR Not Detected (NotDetected); Parainfluenza Virus 3 PCR Not Detected (NotDetected); Parainfluenza Virus 4 PCR Not Detected (NotDetected); Respiratory Syncytial VirusPCR Not Detected (NotDetected); Rhinovirus/Enterovirus PCR Not Detected (NotDetected)
[2023-11-16] MEDS: OPTIRAY 320 100ml IV ONE (21:48)
[2023-11-16] MEDS: cefTRIAXone SODIUM 2,000 MG/50 ML BAG IV STA (21:58)
[2023-11-16] MEDS: AZITHROMYCIN 500 MG in DEXTROSE 5% 250 ML IV STA (21:58)
[2023-11-16] MEDS: PIPERACILLIN/TAZOBACTAM 4.5 GM/120 ML BAG IV ONE (21:58)
[2023-11-16 22:28] LABS: Adenovirus F 40/41 PCR Not Detected (NotDetected); Astrovirus PCR Not Detected (NotDetected); Campylobacter PCR Not Detected (NotDetected); Cryptosporidium PCR Not Detected (NotDetected); Cyclospora cayetanensis PCR Not Detected (NotDetected); Entamoeba histolytica PCR Not Detected (NotDetected); Enteroaggregative E.coli(EAEC) Not Detected (NotDetected); Enteropathogenic E.coli (EPEC) Not Detected (NotDetected); Enterotoxigenic E.coli (ETEC) Not Detected (NotDetected); Giardia lamblia PCR Not Detected (NotDetected); Norovirus GI/GII PCR Not Detected (NotDetected); Plesiomonas shigelloides PCR Not Detected (NotDetected); Rotavirus A PCR Not Detected (NotDetected); Salmonella PCR Not Detected (NotDetected); Sapovirus PCR Not Detected (NotDetected); Shiga-like Toxin E.coli (STEC) Not Detected (NotDetected); Shigella/Enteroinvasive E.coli Not Detected (NotDetected); Vibrio cholerae PCR Not Detected (NotDetected); Vibrio species PCR Not Detected (NotDetected); Yersinia enterocolitica PCR Not Detected (NotDetected)
--- NOTE | 2023-11-16 22:51 | CT Scan Report ---
Exam(s): CT ABDOMEN + PELVIS With Contrast IV Amt: 89ml EXAM: CT Abdomen and Pelvis With Intravenous Contrast CLINICAL HISTORY: Fever with nausea and vomiting. TECHNIQUE: Axial computed tomography images of the abdomen and pelvis with intravenous contrast. CTDI is 26.38 mGy and DLP is 1307.82 mGy-cm. Automated exposure control was utilized for the study. A dose lowering technique was utilized adhering to the principles of ALARA. CONTRAST: Patient received 89ml of IV contrast COMPARISON: CT abdomen and pelvis 09/22/2006 FINDINGS: Lung bases: Unremarkable. No mass. No consolidation. Pleural space: Trace bilateral pleural effusions. Mediastinum: Moderate hiatal hernia. ABDOMEN: Liver: Unremarkable. No mass. Gallbladder and bile ducts: Prominent gallbladder. Suspect cholelithiasis. Pancreas: Unremarkable. No mass. No ductal dilation. Spleen: Unremarkable. No splenomegaly. Adrenals: Unremarkable. No mass. Kidneys and ureters: Unremarkable. No solid mass. No hydronephrosis. Stomach and bowel: Thickening of the wall of the transverse and rectosigmoid colon versus nondistention. Diverticulosis. PELVIS: Appendix: No findings to suggest acute appendicitis. Bladder: Unremarkable. No mass. Reproductive: Hysterectomy. ABDOMEN and PELVIS: Intraperitoneal space: Unremarkable. No free air. No significant fluid collection. Bones/joints: Age indeterminant moderate T12 mild L1 compression fractures. No dislocation. Soft tissues: Bilateral breast prosthesis are partially visualized. Vasculature: Mild atherosclerosis. No abdominal aortic aneurysm. Lymph nodes: Unremarkable. No enlarged lymph nodes. IMPRESSION: 1. Thickening of the wall of the transverse and rectosigmoid colon versus nondistention. This could be seen with nonspecific colitis. No bowel obstruction. 2. Prominent gallbladder. Suspect cholelithiasis. Consider further evaluation with gallbladder ultrasound. 3. Diverticulosis. 4. Age indeterminant moderate T12 mild L1 compression fractures. 5. Moderate hiatal hernia. 6. Trace bilateral pleural effusions. Electronically signed by: Elli Barahona MD 11/16/23 22:50 PM
--- NOTE | 2023-11-17 00:20 | History & Physical Report ---
Date of Service November 17, 2023 Assessment & Plan (1) Diarrhea: Plan: Does meet SIRS criteria prompting admission - leukopenia, tachycardia, febrile, tachypnea. CXR with signs of likely aspiration pneumonia. UA pending. Blood cultures pending. Stool studies including c. dif negative. BioFire negative. Lactate < 2. Check TSH in AM. Likely viral gastroenteritis vs gallbladder etiology. Zosyn will cover intraabdominal etiology regardless. Continue supportive care. Tylenol PRN for fever Zofran PRN for nausea/vomiting f/u UA and blood cultures AM CBC CMP TSH (2) Aspiration pneumonia: Plan: Likely in the setting of acute gastrointestinal illness and recent emesis. Continue Zosyn. Continue azithromycin as patient has a history of reactive airway disease. Continue supplemental oxygen as needed. duonebs, albuterol PRN, IS (3) Cholelithiasis: Plan: Cholelithiasis without signs of cholecystitis on US. Dr. Prabhakar discussed with US tech who confirmed no signs of cholecystitis. Exam not consistent with gallbladder etiology. Could consider surg consult vs outpatient management. Zosyn would cover for gallbladder etiology regardless. (4) Atrial fibrillation with RVR: Plan: Continue Eliquis and rate control with metoprolol. Will monitor on tele. (5) Gastroesophageal reflux disease: Plan: Did increase to pantoprazole 40 mg BID IV. Can resume home dosing upon discharge. Plan Hypothyroidism: continue levothyroxine HTN: hold lisinopril for now as BPs soft Anxiety: continue Lexapro and Wellbutrin Asthma: continue home budesonide, montelukast Code status: full DVT ppx: Eliquis FENGI: Heart Healthy Dispo: Tele History of Present Illness Chief Complaint: GI concerns Primary Care Provider: Jhony Ramires, III, JET DYEING MACHINE TENDER 78 y/o with a PMHx of a fib on Eliquis, asthma, GERD, hypothyroidism, HTN presents for evaluation of GI concerns. Patient with n/v/diarrhea of 4 days duration. Generally feeling unwell and not herself. Patient with some fevers and abdominal cramping. No SOB or CP. No blood in the vomit or stool. Typically with regular BMs. Allergies Allergy/AdvReac Type Severity Reaction Status Date / Time hornet venom Allergy Severe ANAPHYLAXIS Verified 08/29/23 15:16 Sulfa (Sulfonamide Allergy Unknown UNKNOWN Verified 08/29/23 15:16 Antibiotics) bee venom protein (honey bee) AdvReac Severe Anaphylaxis--YELLOW Verified 08/29/23 15:16 JACKETS & HORNETS Home Medications Medication Instructions Recorded Confirmed Type cholecalciferol (vitamin D3) 125 5,000 units PO DAILY 10/31/18 11/16/23 History mcg (5,000 unit) capsule budesonide 180 mcg/actuation 2 inh inhalation BID #1 ea 11/04/22 11/16/23 Rx breath activated powder inhaler (Pulmicort Flexhaler) epinephrine 0.3 mg/0.3 mL 0.3 mg (0.3 mL) IM Q10M PRN 11/04/22 11/16/23 Rx injection, auto-injector anaphylaxis #2 ea diclofenac sodium 1 % topical gel 4 g topical QID PRN Pain 01/12/23 11/16/23 History multivitamin 1 tab PO DAILY 01/12/23 11/16/23 History calcium carbonate 600 mg PO DAILY 02/16/23 11/16/23 History levothyroxine 112 mcg tablet 112 mcg PO DAILYBB #90 tabs 03/28/23 11/16/23 Rx metoprolol tartrate 100 mg tablet 100 mg PO BID #180 tabs 08/08/23 11/16/23 Rx apixaban 5 mg tablet (Eliquis) 5 mg PO BID #180 tabs 08/15/23 11/16/23 Rx bupropion HCl 150 mg tablet,12 hr 150 mg PO BID #180 ea 08/15/23 11/16/23 Rx sustained-release escitalopram oxalate 10 mg tablet 10 mg PO DAILY #90 tabs 08/15/23 11/16/23 Rx lisinopril 5 mg tablet 5 mg PO DAILY #90 tabs 08/19/23 11/16/23 Rx omeprazole 20 mg capsule,delayed 20 mg PO DAILY #90 caps 08/19/23 11/16/23 Rx release montelukast 10 mg tablet 10 mg PO HS 11/16/23 11/16/23 History Past Med/Surg History Problem List (Updated 11/17/23 @ 01:13 by Tala Bethea MD) Diarrhea Cholelithiasis Aspiration pneumonia Pneumonia (Acute) Hypoxia (Acute) Osteoarthritis of ankle, right Lisfranc's sprain Closed fracture of medial malleolus of right ankle (01/11/23) from a fall Closed fracture of tarsal bone of right foot (01/11/23) from a fall Closed fracture of base of metatarsal bone of right foot (01/11/23) from a fall Lymphedema of right lower extremity Atrial fibrillation with RVR Metatarsal fracture (Acute 01/11/23) from a fall Skin lesion of face Venom-induced anaphylaxis Rectal bleeding Incomplete defecation Vitamin D deficiency (Chronic) Venous insufficiency (Chronic) 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 (Chronic) Mineral deficiency (Chronic) Hypothyroidism (Chronic) Hypomagnesemia (Chronic) Hypertension (Chronic) Gastroesophageal reflux disease (Chronic) Extrinsic asthma (Chronic) Edema (Chronic) Depression (Chronic) Chronic diarrhea (Chronic) Atrial fibrillation (Chronic) Anxiety disorder (Chronic) Allergic rhinitis (Chronic) Abnormal mammography (Chronic) Medical History (Updated 11/17/23 @ 01:13 by Tala Bethea MD) Fall History of mitral valve disease Surgical History H/O breast surgery S/P tubal ligation S/P abdominoplasty History of repair of hiatal hernia Family History Father Colorectal cancer Other Osteoporosis Denies family history of Ovarian cancer Prostate cancer Crohn's disease Myocardial infarction Breast cancer Social History Smoking Status: Never smoker Tobacco Type: Cigarettes Age Started Using Tobacco: 18; Second Hand Exposure: No; Do You Dip or Chew Tobacco: No; Hx Alcohol Use: No Hx Substance Use: No Preferred Language: Croatian Communication Ability: Effective Visual Impairment: No Limitations Hearing Ability: Normal Volunteer Patient Representative Required: No Beliefs That Will Affect Care: None marital status: Current Living Situation: Spouse current occupational status: retired current occupation: LABOROR How many Children do You have: 0 Feels Safe at Home: Yes Childhood Exposure to Second-Hand Smoke: Yes Diet: regular Diet Comment: regular caffeine: Yes during the past year weight has: decreased > 10 lbs Dental Care, Regularly: No Physical Activity Frequency: Does not Exercise Seatbelt Use: always Sunscreen Use: Yes Assistive Devices: Cane Review of Systems 2 Review of Systems: See HPI Physical Exam 2 Physical Exam: Gen: well appearing patient in NAD HEENT: AT NC MMM NC in place, breathing comfortably Resp: CTAB no wheezing no increased work of breathing CV: irregularly irregular rhythm, no m/r/g clinically well perfused, no BLE edema Abd: soft, non-tender, non-distended negative Orozco's +BS MSK: no obvious deformities Skin: no rashes or bruising Neuro: alert and oriented Psych: appropriate mood and affect Results & Data Results & Data Laboratory Results 11/16/23 19:58 11/16/23 19:58 Diagnostic Findings Abdomen/Pelvis CT 11/16/23 20:05 FINDINGS: Lung bases: Unremarkable. No mass. No consolidation. Pleural space: Trace bilateral pleural effusions. Mediastinum: Moderate hiatal hernia. ABDOMEN: Liver: Unremarkable. No mass. Gallbladder and bile ducts: Prominent gallbladder. Suspect cholelithiasis. Pancreas: Unremarkable. No mass. No ductal dilation. Spleen: Unremarkable. No splenomegaly. Adrenals: Unremarkable. No mass. Kidneys and ureters: Unremarkable. No solid mass. No hydronephrosis. Stomach and bowel: Thickening of the wall of the transverse and rectosigmoid colon versus nondistention. Diverticulosis. PELVIS: Appendix: No findings to suggest acute appendicitis. Bladder: Unremarkable. No mass. Reproductive: Hysterectomy. ABDOMEN and PELVIS: Intraperitoneal space: Unremarkable. No free air. No significant fluid collection. Bones/joints: Age indeterminant moderate T12 mild L1 compression fractures. No dislocation. Soft tissues: Bilateral breast prosthesis are partially visualized. Vasculature: Mild atherosclerosis. No abdominal aortic aneurysm. Lymph nodes: Unremarkable. No enlarged lymph nodes. IMPRESSION: 1. Thickening of the wall of the transverse and rectosigmoid colon versus nondistention. This could be seen with nonspecific colitis. No bowel obstruction. 2. Prominent gallbladder. Suspect cholelithiasis. Consider further evaluation with gallbladder ultrasound. 3. Diverticulosis. 4. Age indeterminant moderate T12 mild L1 compression fractures. 5. Moderate hiatal hernia. 6. Trace bilateral pleural effusions. Supervising Physician Co-Signing Physician Notes Attending addendum: I have physically seen this patient, have supervised the medical residents activities, and agree with the H&P unless as otherwise noted. Assessment and Plan: Diarrhea/transverse and rectosigmoid colitis- As noted on CT scan Prominent gallbladder noted, with gallbladder ultrasound ordered and pending Unlikely gallbladder etiology with normal LFTs Presumptive aspiration pneumonia/reactive airways disease- Pulse ox as low as 87% on room air, with improvement to 98% on 2 L Zosyn 4.5 g IV every 8 hours Azithromycin 500 mg IV initial dose, then 10 mg IV daily Duonebs every 4 hours as needed Atrial fibrillation/hypertension- The patient will be admitted to telemetry for serial cardiac enzymes, serial EKG's, cardiac rhythm monitoring Continue apixaban, lisinopril and metoprolol Anxiety- Continue bupropion, escitalopram GERD Continue change omeprazole to pantoprazole IV Resident Activity Tracking Resident Involvement: Resident Care Provided Care Provided: Adult Hospital Medicine (5) Gastroesophageal reflux disease Esophagitis presence: without esophagitis Qualified Code(s): K21.9 - Gastro- esophageal reflux disease without esophagitis
[2023-11-17 00:46] LABS: Appearance Urine Cloudy (Clear); Bilirubin Urine Negative (Negative); Blood Urine Negative (Negative); Color Urine Dark Yellow; Glucose Urine UA Negative (Negative); Ketones Urine 2+ (Negative); Leukocyte Esterase Urine Negative (Negative); Nitrite Urine Negative (Negative); Protein Urine 1+ (Negative); Specific Gravity Urine > 1.045 (1.000-1.030); Urobilinogen Urine Negative (Negative); WBC Urine Automated 0-5 /hpf (0-5); pH Urine 5.5 (4.5-7.5)
[2023-11-17 01:16] LABS: RBC Urine Automated 0-2 /hpf (0-2)
[2023-11-17 01:17] LABS: Bacteria Urine Automated 2+ (None Seen)
--- NOTE | 2023-11-17 01:24 | Ultrasound Report ---
Exam(s): US GALLBLADDER EXAM: US Abdomen Limited, Gallbladder CLINICAL HISTORY: Reason for exam: ro conchita. TECHNIQUE: Real-time ultrasound of the right upper quadrant with image documentation. COMPARISON: Comparison to May 06, 2017. FINDINGS: Liver: The liver measures 13.2 cm with no focal liver lesion. The portal vein is patent with normal hepatopetal flow. Hepatic veins are patent. Gallbladder: The gallbladder is fully distended but nondilated. There is a small amount of sludge and small stones in the dependent portion of the gallbladder. The wall thickness is normal. No surrounding fluid is seen. Sonographic Orozco sign is negative. Common bile duct: The common bile duct is nondilated measuring 3 mm. Pancreas: The visualized portion of the pancreas is unremarkable. Right kidney: Unremarkable. No stones. No hydronephrosis. The right kidney measures 9.7 cm. IMPRESSION: The gallbladder is fully distended but nondilated. There is a small amount of sludge and small stones in the dependent portion of the gallbladder. The wall thickness is normal. No surrounding fluid is seen. Sonographic Orozco sign is negative. Electronically signed by: Daniele Zuniga MD 11/17/23 01:23 AM
[2023-11-17] MEDS ORDERED: POLYETHYLENE (MIRALAX) 17 GM PACK PO PRN (01:50)
[2023-11-17] MEDS ORDERED: ALUMINUM/MAGNESIUM SUSP 30 ML UDC PO PRN (01:50)
[2023-11-17] MEDS ORDERED: MAGNESIUM HYDROXIDE SUSP 30 ML UDC PO PRN (01:50)
[2023-11-17] MEDS: LACTATED RINGER'S 1,000 ML IV SCH (02:00)
[2023-11-17] MEDS: ALBUTEROL HFA 8 GM INHALER INH ONE (02:15)
--- NOTE | 2023-11-17 03:31 | Billing Data ---
Date of Service November 17, 2023 Coding Level of Care Code 26937 INT INP/OBS CARE
[2023-11-17] MEDS: AZITHROMYCIN 500 MG in DEXTROSE 5% 250 ML IV STA (03:56)
[2023-11-17] MEDS: PIPERACILLIN/TAZOBACTAM 4.5 GM/100 ML BAG IV SCH (05:54)
[2023-11-17] MEDS: LEVOTHYROXINE SODIUM 112 MCG TABLET PO SCH (06:00)
--- NOTE | 2023-11-17 07:06 | XRay Report ---
XR chest 1V portable CLINICAL HISTORY: Fever COMPARISON STUDY: Chest radiograph January 19, 2011. Chest CT July 18, 2013. FINDINGS: There is no pneumothorax. The heart is moderately enlarged. There is mitral annular calcifi cation. There are trace bilateral pleural effusions. No consolidation to suggest pneumonia. Mild left basilar opacity since chest atelectasis. There is mild interstitial thickening. IMPRESSION: Cardiomegaly with mild interstitial pulmonary edema and trace bilateral pleural effusion s. ACT 112: Negative or not required by law. Electronically signed by: Deuce Latif M.D. 11/17/2023 7:05 AM
--- OUTSIDE RECORDS SUMMARY | 2023-11-17 07:37 | External Medical Summary | Summary of Care ---
Author Name Unknown Organization [facility] Address [address] [place] [address] Phone [phone] Care Team Providers Care Cnc Operator Name Role Phone WernerJhony altman Gray MARTIN Primary Care Provider Encounter Details Date Type Department Care Team (Late st Contact Info) Description 11/11/2023 Orders Only [facility]umatology [address] [facility] [place] [address] Dez Barone MD [facility] [employer] [place] [address] Allergies Active Allergy Reactions Criticality Noted Date Comments Bee Venom 09/26/2018 Sulfa Antibiotics Rash 01/14/2009 documented as of this encounter (statuses as of 11/11/2023) Medications Medication Sig Dispensed Refills Start Date End Date Status PULMICORT FLEXHALER 180 MCG/ACT IN AEPB as needed 0 01/14/2009 Activ e WELLBUTRIN SR 150 MG PO TB12 1 tab daily Active PRILOSEC 20 MG PO CPDR 1 tab daily Active lisinopril (PRINIVIL) 5 MG Tablet 1 daily 08/11/2018 Active metoprolol tartrate (LOPRESSOR) 100 MG Tablet 1 twice daily 08/11/2018 Active Cholecalciferol (VITAMIN D-3) 5000 units Tablet Take 1 Tablet by mouth in the morning. Active EPINEPHrine, anaphylaxis, (AUTOINJECTOR) 0.3 MG/0.3ML SOAJ Inject 0.3 mg into a large muscle once. For a severe reaction: Inject in outer thigh following instructions on package and go to the Emergency room. Active Montelukast Sodium 10 MG Oral Tablet Take by mouth. Act akilah Escitalopram Oxalate (LEXAPRO) 5 MG Tablet 1 daily 09/08/2019 Active Eliquis 5 MG Oral Tablet 1 twice daily 08/21/2020 Active Levothyroxine Sodium 100 MCG Oral Tablet (Levoxyl) Take 1 Tablet by mouth in the morning. 1 daily. 08/13/2020 Active documented as of this encounter (statuses as of 11/11/2023) Active Problems Problem Noted Date Diagnosed Date [...] as of this encounter (statuses as of 11/11/2023) Immunizations Name Administration Dates Next Due COVID-19 mRNA, LNP-s, No Pre serve, 2-Dose Series ([employer]) 05/10/2020,04/19/2020 Pneumococcal Conjugate Vacc, 13 Valent (Prevnar) 12/29/2016 Pneumococcal Polysaccharide PPV23 (Pneumovax) 03/08/2018 Season Influenza, Quad, PF, Adjuvanted, 65+ Yrs, IM (FLUAD) 12/28/2022 Seasonal Influenza Virus Vac cine, Unspecified Formulation 11/09/2017,10/22/2017,11/20/2015 Seasonal Influenza, Quadriva lent, No Preserve, IM 11/01/2018,11/09/2017 TDAP, Age 7 and older, IM (Adacel) 08/25/2016 documented as of this encounter Social History Tobacco Use Types Packs/Day Years Used Date Smoking Tobacco: Former Cigarettes 1 10 0 05/19/1964 - 05/19/1974 Smokeless Tobacco: Never Alcohol Use Standard Drinks/Week Comments Yes 4.2 (1 standard drink = 0.6 oz p ure alcohol) once a week Utilities Answer Date Recorded Do you have trouble paying y our heating, water, or electric bill? (Adult - for ages 18 years and over) Not on file 08/09/2023 Is your family able to pay t he heat, water, or electric bill? (Household - for ages 0-17 years) Not on file 08/09/2023 Does your family have access to good internet? (Household - for ages 0-17 years) Not on file 08/09/2023 Social Connections Answer Date Recorded How often do you feel lonely or isolated from those around you? (Adult - for ages 18 years and over) Not on file 08/09/2023 Sex and Gender Information Value Date Recorded Sex Assigned at Not on file Gender Identity Not on file Sexual Orientation Not on file Job Start Date Occupation Industry Not on file Not on file Not on file documented as of this encounter Plan of Treatment Upcoming Encounters Date Type Department Care Team (Late st Contact Info) Description 11/19/2024 1:40 PM EDT Office Visit Rheumatology [place] [id number] [employer] [place] [address] Dez Barone MD [facility] [place] [address] Health Maintenance Due Date Last Done Comments Depression Screening 1957 Zoster Vaccines (1 of 2) 09/11/1993 TSH 01/30/2021 01/31/2020, 10/01/2019 *BISPHONATE OR OTHER ACCEPTABLE MEDICATION NEEDED FOR OSTEOPOROSIS (REFER TO SMARTSET #1146) 11/09/2021 COVID-19 Vaccine ( season) 2023 03/04/2021, 05/10/2020, 04/19/2020 Influenza Vaccine (FLU shot) (#1) 2023 12/28/2022, 12/28/2022, 12/09/2021, Additional history exists DXA Scan 11/10/2025 05/17/2023, 04/22, 07/04/2020 DTap/Tdap Vaccines (2 - Td or Tdap) 08/25/2026 08/25/2016 VITAMIN D LEVEL ONCE IN A LIFETIME-USE SMARTSET# 98117 Completed 10/09/2020, 11/01/2018 Pneumococcal Vaccine: 65+ Years Completed 06/08/2021, 03/08/2018, 12/29/2016 HPV (Gardasil) Vaccine Aged Out No lo nger eligible based on patient's age to complete this topic Hepatitis B Vaccine Aged Out No longe r eligible based on patient's age to complete this topic MENINGOCOCCAL (MENACTRA/MENVEO) Aged Out No longer eligible based on patient's age to complete this topic documented as of this encounter Medical Devices Implanted Type Area Environmental Studies Professor Device Identifier Shelf Expiration Date Model / Serial / Lot Alloderm 2x4 Sheet [id number] - [id number] Implanted:Qty : 1 on 01/27/2009 [place] [facility] [place] Tissue - Human N/A: Esophagus LIFE CELL TAYA 06/21/2010 [id number] / / [id number] Implant Breast Vibha [id number] - [id number] Implanted:Qty : 1 on 06/16/2011 [place] [facility] [place] Right: Breast MENTOR TAYA 03/01/2016 [id number] C / [id number] / [id number] Implant Breast Vibha [id number] - [id number] Implanted:Qty : 1 on 06/16/2011 at [place] [facility] [place] Left: Breast MENTOR TAYA 03/01/2016 [id number] C / [id number] / [id number] documented as of this encounter Procedures Procedure Name Priority Date/Time Associated Diagnosis Comments DEXA SCAN/BONE MINERAL AXIAL Routine 05/17/2023 documented in this encounter Results * DEXA SCAN/BONE MINERAL AXIAL (05/17/2023) Anatomical Region Laterality Modality Dexa, Vertebra, Spine, Hip, Pelvis Other 05/17/2023 Jhony MARTIN RADIOLOGY (RAD GENER AL) documented in this encounter Advance Directives * Full Code (Latest Code Status on File) Date Activated Date Inactivated Comments 06/16/2011 2:13 PM 06/17/2011 2:05 PM This order r eflects the patients wishes and were consensually agreed upon. * Full Code Date Activated Date Inactivated Comments 04/01/2010 4:24 PM 04/02/2010 3:30 PM This order re flects the patients wishes and were consensually agreed upon. * Full Code Date Activated Date Inactivated Comments 01/27/2009 2:05 PM 01/29/2009 4:35 PM This order r eflects the patients wishes and were consensually agreed upon. Question Answer Comments Discussion of Advance Directives occurred with: Not Discussed Does the patient have a Living Will? No Does the patient have Health Care Power of Attor maria isabel? No * Full Code Date Activated Date Inactivated Comments 01/27/2009 7:13 AM 01/27/2009 2:05 PM This order r eflects the patients wishes and were consensually agreed upon. Care Teams Cnc Operator Relationship Specialty Start Date End Date Jhony Ramires CRNP [address] [place] [address] PCP - General Nurse Practitioner 09/26/18 documented as of this encounter
--- OUTSIDE RECORDS SUMMARY | 2023-11-17 07:37 | External Medical Summary | Summary of Care ---
Author Name Unknown Organization [facility] Address [address] [place] [address] Phone [phone] Care Team Providers Care Licensed Aircraft Maintenance Engineer Name Role Phone WernerJhony altman Gray MARTIN Primary Care Provider Reason for Visit * Reason Comments Rheum Follow Up Recheck [facility] Encounter Details Date Type Department Care Team (Latest Contact Info) Description 11/09/2023 3:20 PM EDT Office Visit Rheumatology [place] [id number] [place] [address] Dez Barone MD [facility] [email or web address] [address] Arthritis of carpometacarpal (CMC) joint of both thumbs*; Senile osteoporosis Allergies Active Allergy Reactions Criticality Noted Date Comments Bee Venom 09/26/2018 Sulfa Antibiotics Rash 01/14/2009 documented as of this encounter (statuses as of 11/09/2023) Medications Medication Sig Dispensed Refills Start Date End Date Status PULMICORT FLEXHALER 180 MCG/ACT IN AEPB as needed 0 01/14/2009 Active WELLBUTRIN SR 150 MG PO TB12 1 [...] 10 MG Oral Tablet Take by mouth. Active Escitalopram Oxalate (LEXAPRO) 5 MG Tablet 1 daily 09/08/2019 Active Eliquis 5 MG Oral Tablet 1 twice daily 08/21/2020 Active Levothyroxine Sodium 100 MCG Oral Tablet (Levoxyl) Take 1 Tablet by mouth in the morning. 1 daily. 08/13/2020 Active SF 5000 PLUS 1.1 % cream APPLY A PEA SIZE AMOUNT TO BRUSH YOUR TEETH PREFERABLY BEFORE GOING TO BED. DO NOT EAT, DRINK, OR RINSE MOUTH FOR AT LEAST 30 MINUTES AFTER 3 12/19/2018 4 Discontinued doxycycline hyclate (VIBRAMYCIN) 50 MG Capsule 09/24/2019 4 Discontinued documented as of this encounter (statuses as of 11/09/2023) Active Problems Problem Noted Date Diagnosed Date [...] as of this encounter (statuses as of 11/09/2023) Immunizations Name Administration Dates Next Due COVID-19 mRNA, LNP-s, No Pre serve, 2-Dose Series (IntelliWheels) 05/10/2020,04/19/2020 Pneumococcal Conjugate Vacc, 13 Valent (Prevnar) 12/29/2016 Pneumococcal Polysaccharide PPV23 (Pneumovax) 03/08/2018 Season Influenza, Quad, PF, Adjuvanted, 65+ Yrs, IM (FLUAD) 12/28/2022 Seasonal Influenza Virus Vac cine, Unspecified Formulation 11/09/2017,10/22/2017,11/20/2015 Seasonal Influenza, Quadriva gett, No Preserve, IM 11/01/2018,11/09/2017 TDAP, Age 7 and older, IM (Adacel) 08/25/2016 documented as of this encounter Social History Tobacco Use Types Packs/Day Years Used Date Smoking Tobacco: Former Cigarettes 1 10 0 05/19/1964 - 05/19/1974 Smokeless Tobacco: Never Tobacco Cessation:Counseling Given: Not Answered Alcohol Use Standard Drinks/Week Comments Yes 4.2 [...] on file documented as of this encounter Last Filed Vital Signs Vital Sign Reading Time Taken Comments Blood Pressure 112/64 11/09/2023 3:13 PM EDT Pulse - - Temperature 36.6 C (97.8 F) 11/09/2023 3:13 PM ED T Respiratory Rate - - Oxygen Saturation - - Inhaled Oxygen Concentration - - Weight 89.8 kg (198 lb) 11/09/2023 3:13 PM EDT Height - - Body Mass Index 35.35 01/02/2019 11:33 AM EST documented in this encounter Progress Notes * Dez Barone MD - 11/09/2023 3:16 PM EDT [facility] ([facility] follow up Previous Visit Plan from 11/08/2022 reviewed. Reason for visit: Patient seen today for further follow-up/evaluation of osteoporosis. She has received 3 doses of reclast. Last one was in 2020. She did have tooth extracted in July this year. She reports that her dentist noted some lumps of at the sites. Can rub against her dentures. She needs tohave these lesions filed down. She did have a fall last fall and had 3 toes fractures. She did havean updated DEXA sometime this year but I do not have the results. Bone Health Summary: Risks: Falls since last [facility] visit: yes Personal History of Fx since last [facility] Visit: see above Prevention: Exercise : 3 or more times weekly: No Nutrition: eats calcium rich foods, Yes Gait: unsteady with walking, Yes, use of cane/walker, Yes, cane Calcium and Vitamin D supplements in adequate doses: Yes ROS: . Constitutional: normal . Ears, nose, throat, mouth: normal . Cardiovascular: normal . Respiratory: normal . Gastrointestinal: normal . Musculoskeletal: joint pain . Genitourinary: normal Medications: Current Outpatient Medications Medication Sig Dispense Refill PULMICORT FLEXHALER 180 MCG/ACT IN AEPB as needed 0 WELLBUTRIN SR 150 MG PO TB12 1 tab daily PRILOSEC 20 MG PO CPDR 1 tab daily lisinopril (PRINIVIL) 5 MG Tablet 1 daily metoprolol tartrate (LOPRESSOR) 100 MG Tablet 1 twice daily Cholecalciferol (VITAMIN D-3) 5000 units Tablet Take 1 Tablet by mouth in the morning. EPINEPHrine, anaphylaxis, (AUTOINJECTOR) 0.3 MG/0.3ML SOAJ Inject 0.3 mg into a large muscle once. For a severe reaction: Inject in outer thigh following instructions on package and go to the Emergency room. Montelukast Sodium 10 MG Oral Tablet Take by mouth. Escitalopram Oxalate (LEXAPRO) 5 MG Tablet 1 daily Eliquis 5 MG Oral Tablet 1 twice daily Levothyroxine Sodium 100 MCG Oral Tablet (Levoxyl) Take 1 Tablet by mouth in the morning. 1 daily. No current facility-administered medications for this visit. Social History: Social History Tobacco Use Smoking status: Former Current packs/day: 0.00 Average packs/day: 1 pack/day for 10.0 years (10.0 ttl pk-yrs) Types: Cigarettes Start date: 05/19/1964 Quit date: 05/19/1974 Years since quittin.5 Smokeless tobacco: Never Substance Use Topics Alcohol use: Yes Alcohol/week: 4.2 standard drinks of alcohol Types: 5 12 oz of beer per week Comment: once a week Physical Exam: BP 112/64 | Temp 36.6 C (97.8 F) (Infrared ) | Wt 89.8 kg (198 lb) | BMI 35.35 kg/m | BSA 1.99 m General: alert, no distress, and well nourished Heart: regular rate & rhythm and no gallops Lungs: clear to auscultation , no rales, wheezes or rhonchi Abdomen: abdomen soft, non-tender, and normal bowel sounds Musculoskeletal Exam: Assessment: (M18.0) Arthritis of carpometacarpal (CMC) joint of both thumbs (primary encounter diagnosis) (M81.0) Senile osteoporosis 78 year old female with osteoporosis who received IV reclast x 3 but on drug holiday. Likely needs to have a 2nd procedure done after extraction. Does not sound like this is related to osteonecrosis of the jaw but will discuss with oral surgeon. Also will get bone density test results. If needs another dose of Reclast will wait until after oral surgery. Plan: The following items are ordered or are in progress: 1. Education: Osteoporosis education was provided by the [facility] team (topics included disease process, DXA, calcium/vitamin D, osteoporosis medications - including administration instructions and risks/benefits, weight bearing exercise, fall prevention/safety). 2. Prevention: . Fall Prevention/Safety Education recommended and discussed . Continue calcium rich foods (goal of 3 servings daily) 3. Osteoporosis Medications : Continue drug holiday - will need to speak to oral surgery 4. Bone Density Testing: due 2 year(s) from previous 5. Laboratory: None needed 6. Followup: Return to [facility] clinic in 1 year Dez Barone MD [facility] Team documented in this encounter Nursing Notes * Garett Cook LPN - 11/09/2023 3:11 PM EDT Chief Complaint Patient presents with Rheum Follow Up Recheck [facility] documented in this encounter Plan of Treatment Upcoming Encounters Date Type Department Care Team (Late st Contact Info) Description 11/19/2024 1:40 PM EDT Office Visit Rheumatology [place] [id number] [place] [address] Dez Barone MD [facility] [email or web address] [address] Health Maintenance Due Date Last Done Comments Depression Screening 1957 Zoster Vaccines (1 of 2) 09/11/1993 TSH 01/30/2021 01/31/2020, 10/01/2019 *BISPHONATE OR OTHER ACCEPTABLE MEDICATION NEEDED FOR OSTEOPOROSIS (REFER TO SMARTSET #1146) 11/09/2021 COVID-19 Vaccine ( season) 2023 03/04/2021, 05/10/2020, 04/19/2020 Influenza Vaccine (FLU shot) (#1) 2023 12/28/2022, 12/28/2022, 12/09/2021, Additional history exists DXA Scan 05/16/2025 05/17/2023, 07/04/2020 DTap/Tdap Vaccines (2 - Td or Tdap) 08/25/2026 08/25/2016 VITAMIN D LEVEL ONCE IN A LIFETIME-USE SMARTSET# 86768 Completed 10/09/2020, 11/01/2018 Pneumococcal Vaccine: 65+ Years [...] this encounter Medical Devices Implanted Type Area Agile Developer Device Identifier Shelf Expiration Date Model / Serial / Lot Alloderm 2x4 Sheet [id number] - [id number] Implanted:Qty : 1 on 01/27/2009 at OR [facility] Tissue - Human N/A: Esophagus [employer] 06/21/2010 [id number] / / [id number] Implant Breast Vibha [id number] - [id number] Implanted:Qty : 1 on 06/16/2011 at OR [facility] Right: Breast MENTOR TAYA 03/01/2016 350-5251B C / [id number] / [id number] Implant Breast Vibha [id number] - [id number] Implanted:Qty : 1 on 06/16/2011 at OR [facility] Left: Breast MENTOR TAYA 03/01/2016 [id number] C / [id number] / [id number] documented as of this encounter Visit Diagnoses Diagnosis Arthritis of carpometacarpal (CMC) joint of both thumbs- Primary Senile osteoporosis documented in this encounter Advance Directives * [...] and were consensually agreed upon. Care Teams Licensed Aircraft Maintenance Engineer Relationship Specialty Start Date End Date Jhony Ramires CRNP [address] [place] [address] PCP - General Nurse Practitioner 09/26/18 documented as of this encounter"
[2023-11-17 08:10] LABS: Hemoglobin 10.8 g/dl (12.0-16.0); Mean Corpuscular Hemoglobin 30.4 pg (25.0-34.0); Mean Corpuscular Hgb Conc 33.8 g/dL (32.0-36.0); Mean Corpuscular Volume 90.1 fL (80.0-100.0); Platelet Count 134 K/uL (130-400); RDW Coefficient of Variation 14.4 % (11.5-14.5); RDW Standard Deviation 47.9 fL (36.4-46.3); Red Blood Count 3.55 M/uL (4.20-5.40); White Blood Count 4.41 K/ul (4.8-10.8)
[2023-11-17] MEDS: APIXABAN 5 MG TABLET PO SCH (08:45)
[2023-11-17] MEDS: ESCITALOPRAM OXALATE 10 MG TAB PO SCH (08:45)
[2023-11-17] MEDS: buPROPion SR 150 MG TABCR PO SCH (08:45)
[2023-11-17] MEDS: MULTIVITAMIN TAB PO SCH (08:45)
[2023-11-17] MEDS: METOPROLOL TARTRATE 100 MG TAB PO SCH (08:45)
[2023-11-17] MEDS: PANTOprazole 40 MG in SYRINGE 0 ML IV SCH (08:46)
[2023-11-17] MEDS: FLUTICASONE FUROATE 100MCG 14 PUFFS/INHALER INH SCH (08:46)
[2023-11-17 08:51] LABS: Thyroid Stimulating Hormone 0.546 uIu/ml (0.300-4.500)
[2023-11-17 09:42] LABS: Bilirubin,Total 1.3 mg/dl (0.2-1.0); Calcium 8.4 mg/dl (8.6-10.3); Magnesium 1.4 mg/dl (1.7-2.4); Potassium 3.2 mmol/L (3.5-5.1)
[2023-11-17 09:48] LABS: Albumin Globulin Ratio 1.1 (0.9-2); BUN Creatinine Ratio 24.6 (10-20); Creatinine Clr Calc Pharmacy 73.5 ml/min; Est GFR (African American) 97.2 ml/min; Est GFR (Non-African American) 83.9 ml/min; Globulin 2.7 gm/dl (2.5-4.0); Total Protein 5.7 gm/dl (6.0-8.3)
[2023-11-17] MEDS: POTASSIUM CHLORIDE CRTAB 20 MEQ TABCR PO ONE (10:10)
[2023-11-17] MEDS: POTASSIUM CHLORIDE / WTR 10 MEQ/100 ML PLCT IV SCH (10:10)
--- NOTE | 2023-11-17 15:27 | Hospitalist Progress Note ---
Date of Service November 17, 2023 Assessment & Plan (1) Diarrhea: Plan: - Patient presented to ED with nausea and vomiting for the past 4 days - No longer meets SIRS criteria - no tachycardia and afebrile. - Blood cultures pending. Stool studies including c. dif negative. BioFire negative. Lactate < 2. TSH is normal. - Likely food poisoning - Continue with Zosyn - Transition to regular diet - Tylenol and Zofran PRN (2) Cholelithiasis: Plan: - Cholelithiasis without signs of cholecystitis on US. - Could consider outpatient management if patient becomes symptomatic. (3) Aspiration pneumonia: Plan: - Patient is asymptomatic - May have a component of aspiration pneumonia due to acute GI illness - CXR shows no acute infection - Continue with Zosyn - Discontinue azithromyocin - Reevaluate of patient becomes symptomatic - Duonebs and albulterol PRN Plan (4) Atrial fibrillation with RVR: Plan: - Continue Eliquis and rate control with metoprolol. Will monitor on tele. (5) Gastroesophageal reflux disease: Plan: - Continue with pantoprazole 40 mg BID IV. Can resume home dosing upon discharge. Plan Hypothyroidism: continue levothyroxine HTN: hold lisinopril for now as BPs soft Anxiety: continue Lexapro and Wellbutrin Asthma: continue home budesonide, montelukast Code status: full DVT ppx: Sunithaquchyna BLACKI: Heart Healthy Dispo: Tele Admission and Anticipated Discharge Date Admission Date: November 17, 2023 Supervising Physician Co-Signing Physician Notes I personally examined the patient and verified all lewis points of history and exam, discussed case, and agree with decision making with Arsalan BADILLO Feeling better. 1 episode of diarrhea since this morningfar less than be fore. Food sitting well. Updated the best my ability and answered all questions to the best my ability. Vitals noted, in general she is awake and alert pleasant no distress. HEENT normocephalic atraumatic mucous membranes moist. Breathing unlabored no accessory muscle use good effort. Abdomen soft nondistended nontender no masses organomegaly. Intractable diarrhea/dehydrationimproving. Diarrhea is slowing. Difficult to discern most likely foodborne enteritis and improving because of antibiotics, but given age and frailty, also could have simply gotten dehydrated from a viral enteritis and the dehydration kept GI symptoms persistingeither way improving. No evidence symptoms etc. of pneumoniaalthough a bit of any relevant point given that the antibiotics for her foodborne enteritis will cover. Switch antibiotics to Augmentin. Hopefully home tomorrow. Anticoagulated. Subjective Today she says is feeling better. She mentioned her vomit was bright pink before she was brought into the ED. She reports no melena or hematochezia. She has no abdominal pain or cramps since last night. She denies any SOB or chest pain. When visited in the afternoon, she noted one bowel movement. Review of Systems Review of Systems: As per HPI Physical Exam Constitutional: WD/WN, vitals as above Gastrointestinal (Abdomen): normal bowel sounds, soft, nontender, no hepatosplenomegaly Results & Data Results & Data Vital Signs (Past 12 Hours) Vital Signs Temp Pulse Pulse Resp BP Pulse Ox O2 Del Method 11/17/23 12:58 88 11/17/23 12:05 37.5 C 76 18 110/70 96 Room Air 11/17/23 07:50 37.4 C 90 16 108/68 96 Nasal Cannula 11/17/23 07:32 Nasal Cannula 11/17/23 07:00 103 H 11/17/23 04:12 96 H 11/17/23 04:03 Nasal Cannula 11/17/23 03:38 37.1 C 88 18 122/76 98 Nasal Cannula 11/17/23 02:15 18 98 Nasal Cannula O2 Flow Rate 11/17/23 12:58 11/17/23 12:05 11/17/23 07:50 2 11/17/23 07:32 2 11/17/23 07:00 11/17/23 04:12 11/17/23 04:03 2 11/17/23 03:38 2 11/17/23 02:15 2
--- NOTE | 2023-11-17 17:04 | Billing Data ---
Date of Service November 17, 2023 Coding Level of Care Code 15161 SUB INP/OBS CARE
[2023-11-17] MEDS: MAGNESIUM SULFATE / D5W 1 GM/100 ML BAG IV SCH (17:42)
[2023-11-17] MEDS: ALBUT/IPRATROP 3MG/0.5MG NEB 3 ML VIAL NEB PRN (17:44)
[2023-11-17] MEDS: MONTELUKAST SODIUM 10 MG TABLET PO SCH (20:14)
[2023-11-17] MEDS ORDERED: AZITHROMYCIN 250 MG in DEXTROSE 5% 250 ML IV SCH (21:00)
[2023-11-17] MEDS: ACETAMINOPHEN 1,000 MG/100 ML VIAL IV PRN (23:55)
[2023-11-18 06:49] LABS: Basophils # (auto) 0.01 K/uL (0.00-0.20); Basophils % (auto) 0.2 %; Hematocrit (blood only) 33.9 % (37.0-47.0); Hemoglobin 11.1 g/dl (12.0-16.0); Immature Granulocytes # (auto) 0.02 K/uL (0.01-0.20); Immature Granulocytes % (auto) 0.5 %; Lymphocytes # (auto) 0.31 K/uL (1.20-3.40); Lymphocytes % (auto) 7.5 %; Mean Corpuscular Hemoglobin 29.9 pg (25.0-34.0); Mean Corpuscular Hgb Conc 32.7 g/dL (32.0-36.0); Mean Corpuscular Volume 91.4 fL (80.0-100.0); Mean Platelet Volume 10.7 fL (9.4-12.4); Monocytes # (auto) 0.27 K/uL (0.11-0.59); Monocytes % (auto) 6.5 %; Neutrophils # (auto) 3.54 K/uL (1.40-6.50); Neutrophils % (auto) 85.3 %; Platelet Count 142 K/uL (130-400); RDW Coefficient of Variation 14.7 % (11.5-14.5); RDW Standard Deviation 49.7 fL (36.4-46.3); Red Blood Count 3.71 M/uL (4.20-5.40); White Blood Count 4.15 K/ul (4.8-10.8)
[2023-11-18 07:01] LABS: BUN Creatinine Ratio 25.4 (10-20); Calcium 8.8 mg/dl (8.6-10.3); Est GFR (African American) 93.2 ml/min; Est GFR (Non-African American) 80.4 ml/min; Potassium 4.1 mmol/L (3.5-5.1)
[2023-11-18] MEDS: AMOXICILLIN/CLAVULANATE 875 MG TAB PO SCH (09:32)
--- NOTE | 2023-11-18 16:08 | Hospitalist Progress Note ---
Date of Service November 18, 2023 Assessment & Plan (1) Diarrhea: Plan: - Patient presented to ED with nausea and vomiting for the past 4 days - No longer meets SIRS criteria - no tachycardia and afebrile. - No longer symptomatic - Blood cultures pending. Stool studies including c. dif negative. BioFire negative. Lactate < 2. TSH is normal. - Likely food borne enteritis - Continue with Augmentin - Continue with regular diet - Tylenol and Zofran PRN (2) Atelectasis: Plan: - Patient is asymptomatic - CXR shows no acute infection - Likely due to inactivity - On nasal cannula - O2-> 86 this morning, 94 in evening - Incentive spirometry 5x an hour and reevaluate tomorrow - Duonebs and albulterol PRN (3) Cholelithiasis: Plan: - Cholelithiasis without signs of cholecystitis on US. - Could consider outpatient management if patient becomes symptomatic. Plan (4) Atrial fibrillation with RVR: Plan: - Continue Eliquis and rate control with metoprolol. Will monitor on tele. (5) Gastroesophageal reflux disease: Plan: - Continue with pantoprazole 40 mg BID IV. Can resume home dosing upon discharge. Plan Hypothyroidism: continue levothyroxine HTN: hold lisinopril for now as BPs soft Anxiety: continue Lexapro and Wellbutrin Asthma: continue home budesonide, montelukast Code status: full DVT ppx: Eliquis FENGI: Heart Healthy Dispo: Tele Admission and Anticipated Discharge Date Admission Date: November 17, 2023 Supervising Physician Co-Signing Physician Notes I personally examined the patient and verified all lewis points of history and exam, discussed case, and agree with decision making with Arsalan Goff MS2 feels good overall. No new complaints. Now on oxygennotes that she was not feeling short of breathdoes not have any cough wheeze sputum etc.but just that her pulse ox was lower. Has not been up and around a lot. Tolerating p.o. well, no ongoing diarrhea. Vitals noted, in general she is awake and alert pleasant no distress. HEENT normocephalic atraumatic mucous membranes moist. Lungs diminished air entry bibasilar with faint ralesclears in the upper lung. Diarrhea/dehydrationappears to have been due to foodborne enteritisimproving. In this respect she would be safe/stable for home on Augmentin Hypoxiatotally asymptomaticnot up and moving much and initially here with abdominal symptomsstrongly suspect atelectasis based on lack of symptoms presentation and exam. Incentive spirometry, encourage activity. Wean oxygen as possible. Anticoagulated Subjective Today she says is feeling better than yesterday. She was on regular diet last night and said that she had no issues with the food. No nausea, vomiting, or diarrhea. Has not had a bowel movement since last night when asked this morning. Says she is not short of breath, but is still on nasal cannula. Review of Systems Review of Systems: As per HPI Physical Exam Constitutional: WD/WN, vitals as above Respiratory: Diminished breath sounds in lower lobes Gastrointestinal (Abdomen): normal bowel sounds, soft, nontender, no hepatosplenomegaly Results & Data Results & Data Vital Signs (Past 12 Hours) Vital Signs Temp Pulse Pulse Resp BP BP Pulse Ox 11/18/23 03:58 37.5 C 92 H 17 108/72 90 11/18/23 03:48 89 11/18/23 01:24 96 H 11/17/23 23:35 39.1 C H 98 H 18 126/77 92 11/17/23 20:44 11/17/23 19:24 38.5 C H 95 H 18 105/68 92 O2 Del Method O2 Flow Rate 11/18/23 03:58 Room Air 11/18/23 03:48 11/18/23 01:24 11/17/23 23:35 Room Air 11/17/23 20:44 Nasal Cannula 2 11/17/23 19:24 Room Air
--- NOTE | 2023-11-18 16:33 | Billing Data ---
Date of Service November 18, 2023 Coding Level of Care Code 75115 SUB INP/OBS CARE
--- NOTE | 2023-11-18 22:33 | Electrocardiogram Report ---
Test Reason : Blood Pressure : */* mmHG Vent. Rate : 92 BPM Atrial Rate : * BPM P-R Int : * ms QRS Dur : 84 ms QT Int : 368 ms P-R-T Axes : * 8 -15 degrees QTcB Int : 455 ms Atrial fibrillation Low voltage QRS Cannot rule out Anterior infarct , age undetermined Nonspecific T wave abnormality Abnormal ECG When compared with ECG of 15-Jan-2023 16:07, Inverted T waves have replaced nonspecific T wave abnormality in Inferior leads Confirmed by Salomon Turner ([id number]) on 11/18/2023 10:32:39 PM Referred By: REFERRED SELF Confirmed By: Salomon Turner
[2023-11-19] MEDS: ONDANSETRON INJ 2 MG/ML 2 ML VIAL IV PRN (00:43)
--- NOTE | 2023-11-19 07:29 | Hospitalist Progress Note ---
Date of Service November 19, 2023 Assessment & Plan (1) Diarrhea: Plan: - Patient presented to ED with nausea and vomiting. Symptoms resolving with no complaint of nausea on regular diet. - No longer meets SIRS criteria - no tachycardia and afebrile. - Blood cultures are negative. Stool studies including c. dif negative. BioFire negative. TSH is normal. - Likely food poisoning - Continue with Zosyn - Continue regular diet as tolerated - Tylenol and Zofran PRN (2) Cholelithiasis: Plan: - Cholelithiasis without signs of cholecystitis on US. - Could consider outpatient management if patient becomes symptomatic. (3) Aspiration pneumonia: Plan: - Patient without c/o cough, SOB or chest pain, but is now febrile to 39.0, requiring 2L oxygen to maintain saturation, and feeling ill. - Fine crackles appreciated in bilateral lower lobes. Shallow breathing pattern observed - CRP- 27.52, Procal-1.29 - CXR from 11/15 showed no acute infection - Aspiration pneumonia vs atelectasis - Continue with Zosyn - Recheck CXR 11/19 if patient's symptoms worsen - Duonebs and albulterol PRN Plan (4) Atrial fibrillation with RVR: Plan: - Continue Eliquis and rate control with metoprolol. Will monitor on tele. (5) Gastroesophageal reflux disease: Plan: - Continue with pantoprazole 40 mg BID IV. Can resume home dosing upon discharge. Plan Hypothyroidism: continue levothyroxine HTN: hold lisinopril for now as BPs soft Anxiety: continue Lexapro and Wellbutrin Asthma: continue home budesonide, montelukast Code status: full DVT ppx: Eliquis FENGI: Heart Healthy Dispo: Tele Admission and Anticipated Discharge Date Admission Date: November 17, 2023 Supervising Physician Co-Signing Physician Notes I personally examined the patient and verified all lewis points of history and exam, discussed case, and agree with decision making with Dr Boston Feels okay now. GI complaints of largely resolved. No significant shortness of breath. Did feel lousy and sweaty earlier with fever. Recalls that whenever she was at home and vomiting she does feel like she choked on vomit at one point. Vitals noted, in general she is awake and alert pleasant no distress. HEENT normocephalic atraumatic mucous membranes moist. Breathing unlabored no accessory muscle use good effort. Skin without rashes pallor or icterus. Diarrhea/dehydrationappears to have been due to foodborne enteritisimproving. In this respect she would be safe/stable for home on Augmentin Hypoxiatotally asymptomatic and while the differential of atelectasis still certainly is possible, I am starting to wonder if she is developing an aspiration pneumonia after having had an aspiration event/pneumonitis. Fortunately already on Augmentinso for now it would be supportive care and continuing current antibiotics and following. Should she continue to spike fevers into tomorrow, then may need to workup further simply due to ongoing fevers on several days of what should be appropriate antibiotic coverage. Anticoagulated Subjective Pt is an 78 yo female who presents with nausea, vomiting, and diarrhea on 11/15. Pt reports feeling unwell at this time due to fever. She is eating regular diet and tolerating PO intake. She denies current nausea, cough, congestion, chest pain, or difficulty breathing. She denies history of pulmonary problems or URI symptoms prior ED visit for GI symptoms. Pt has a distant history of tobacco use. Review of Systems Review of Systems: See HPI Physical Exam Constitutional: WD/WN, vitals as above Respiratory: Shallow breaths noted without significant encouragement. Fine crackles heard in bilateral lower lobes. Cardiovascular: Rate/Rhythm: regular rate, regular rhythm and + tachycardic Gastrointestinal (Abdomen): normal bowel sounds, soft, nontender, no hepatosplenomegaly Skin: no rashes, warm and dry Psychiatric: A+Ox3, euthymic affect Results & Data Results & Data Vital Signs (Past 12 Hours) Vital Signs Temp Pulse Pulse Resp BP Pulse Ox O2 Del Method 11/19/23 07:19 105 H 11/19/23 03:52 36.9 C 68 16 102/58 L 96 Nasal Cannula 11/18/23 23:17 36.5 C 70 16 106/60 95 Nasal Cannula 11/18/23 20:45 Nasal Cannula 11/18/23 19:46 36.6 C 73 18 100/60 96 Nasal Cannula O2 Flow Rate 11/19/23 07:19 11/19/23 03:52 2 11/18/23 23:17 2 11/18/23 20:45 2 11/18/23 19:46 2 Resident Activity Tracking Resident Involvement: Resident Care Provided Care Provided: [facility]
[2023-11-19 08:31] LABS: BUN Creatinine Ratio 29.5 (10-20); C Reactive Protein 27.52 mg/dl (0-0.5); Calcium 8.4 mg/dl (8.6-10.3); Creatinine Clr Calc Pharmacy 78.5 ml/min; Est GFR (African American) 99.2 ml/min; Est GFR (Non-African American) 85.6 ml/min
[2023-11-19 08:56] LABS: Basophils # (auto) 0.01 K/uL (0.00-0.20); Basophils % (auto) 0.2 %; Hematocrit (blood only) 30.8 % (37.0-47.0); Hemoglobin 10.8 g/dl (12.0-16.0); Immature Granulocytes # (auto) 0.02 K/uL (0.01-0.20); Immature Granulocytes % (auto) 0.5 %; Lymphocytes # (auto) 0.45 K/uL (1.20-3.40); Lymphocytes % (auto) 10.7 %; Mean Corpuscular Hemoglobin 31.1 pg (25.0-34.0); Mean Corpuscular Hgb Conc 35.1 g/dL (32.0-36.0); Mean Corpuscular Volume 88.8 fL (80.0-100.0); Mean Platelet Volume 11.4 fL (9.4-12.4); Monocytes # (auto) 0.26 K/uL (0.11-0.59); Monocytes % (auto) 6.2 %; Neutrophils # (auto) 3.45 K/uL (1.40-6.50); Neutrophils % (auto) 82.4 %; Platelet Count 117 K/uL (130-400); RDW Coefficient of Variation 14.8 % (11.5-14.5); Red Blood Count 3.47 M/uL (4.20-5.40); White Blood Count 4.19 K/ul (4.8-10.8)
--- NOTE | 2023-11-19 16:01 | Billing Data ---
Date of Service November 19, 2023 Coding Level of Care Code 68722 SUB INP/OBS CARE
--- NOTE | 2023-11-19 16:02 | Billing Data ---
Date of Service November 19, 2023 Coding Level of Care Code 59081 SUB INP/OBS CARE
[2023-11-19] MEDS: ACETAMINOPHEN 325 MG TAB PO PRN (23:39)
--- NOTE | 2023-11-20 06:59 | Hospitalist Progress Note ---
Date of Service November 20, 2023 Assessment & Plan (1) Diarrhea: Plan: - Patient presented to ED with nausea and vomiting. Symptoms have resolved with no complaint of nausea on regular diet. - Anaplasma smear positive - Likely food poisoning vs anaplasma - Started Doxycycline 100mg PO BID - Continue with Zosyn - Continue regular diet as tolerated - Zofran PRN (2) Cholelithiasis: Plan: - Cholelithiasis without signs of cholecystitis on US. - Could consider outpatient management if patient becomes symptomatic. (3) Aspiration pneumonia: Plan: - Patient with nonproductive cough, but no SOB or chest pain. - Pt continues with intermittent fevers and muscle aches, relieved with Tylenol - Fine crackles appreciated in bilateral lower lobes. 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 Pt demonstrated understanding - Duonebs and albulterol PRN Plan (4) Atrial fibrillation with RVR: Plan: - Continue Eliquis and rate control with metoprolol. Will monitor on tele. (5) Gastroesophageal reflux disease: Plan: - Continue with pantoprazole 40 mg BID IV. Can resume home dosing upon discharge. Plan Hypothyroidism: continue levothyroxine HTN: hold lisinopril for now as BPs soft Anxiety: continue Lexapro and Wellbutrin Asthma: continue home budesonide, montelukast Code status: full DVT ppx: Eliquis FENGI: Heart Healthy Dispo: Tele Admission and Anticipated Discharge Date Admission Date: November 19, 2023 Supervising Physician Co-Signing Physician Notes I personally examined the patient and verified all lewis points of history and exam, discussed case, and agree with decision making with Dr Boston no new complaints. Vitals noted, in general she is awake and alert pleasant no distress. HEENT normocephalic atraumatic mucous membranes moist. Breathing unlabored no accessory muscle use good effort. Skin without rashes pallor or icterus. Diarrhea/dehydrationappears to have been due to foodborne enteritisimproving. In this respect she would be safe/stable for home on Augmentin x5 days total fevers - now showing a trend downward w white count and plt - and with fevers that could be explained by atelectasis, but are both higher than typical for this as well as symptomatic - was more suspicious for tick borne illness --> LFTs normal but parasite smear c/w anaplasma. started doxy Hypoxiatotally asymptomatic especially now with anaplasma to account for fevers, this is most likely atelectasis. continue to encourage movement and inc entive spirometry. Anticoagulated home once off O2. Subjective Pt is an 78 yo female who presents with nausea, vomiting, and diarrhea on 11/15. Pt reports feeling fine today, but had some muscle aches overnight and fever. Pt denies CP, SOB, nausea, vomiting, numbness/tingling, current muscle aches/pain. Pt with dry cough during our visit today. Review of Systems Review of Systems: See HPI Physical Exam Constitutional: WD/WN, vitals as above Respiratory: Auscultation: + crackles (Bilateral lower lobes); no wheezes Cardiovascular: Rate/Rhythm: regular rate, regular rhythm and + tachycardic Gastrointestinal (Abdomen): normal bowel sounds, soft, nontender, no hepatosplenomegaly Skin: no rashes, warm and dry Psychiatric: A+Ox3, euthymic affect Results & Data Results & Data Vital Signs (Past 12 Hours) Vital Signs Temp Pulse Pulse Resp BP Pulse Ox O2 Del Method 11/20/23 06:50 94 H 11/20/23 03:43 37.1 C 92 H 16 114/72 95 Nasal Cannula 11/19/23 23:36 38.2 C H 97 H 18 115/76 95 Nasal Cannula 11/19/23 21:48 96 H 11/19/23 19:26 36.7 C 104 H 16 106/70 96 Nasal Cannula 11/19/23 19:20 Nasal Cannula O2 Flow Rate 11/20/23 06:50 11/20/23 03:43 2 11/19/23 23:36 2 11/19/23 21:48 11/19/23 19:26 2.0 11/19/23 19:20 2 Resident Activity Tracking Resident Involvement: Resident Care Provided Care Provided: Adult Hospital Medicine
[2023-11-20 07:04] LABS: BUN Creatinine Ratio 30.9 (10-20); C Reactive Protein 27.8 mg/dl (0-0.5); Calcium 8.5 mg/dl (8.6-10.3); Creatinine Clr Calc Pharmacy 70.4 ml/min; Est GFR (African American) 95.8 ml/min; Est GFR (Non-African American) 82.6 ml/min
[2023-11-20 07:15] LABS: Hematocrit (blood only) 34.7 % (37.0-47.0); Hemoglobin 11.3 g/dl (12.0-16.0); Mean Corpuscular Hemoglobin 30.1 pg (25.0-34.0); Mean Corpuscular Hgb Conc 32.6 g/dL (32.0-36.0); Mean Corpuscular Volume 92.5 fL (80.0-100.0); Mean Platelet Volume 11.6 fL (9.4-12.4); Platelet Count 113 K/uL (130-400); RDW Coefficient of Variation 15.1 % (11.5-14.5); RDW Standard Deviation 51.1 fL (36.4-46.3); Red Blood Count 3.75 M/uL (4.20-5.40); White Blood Count 3.75 K/ul (4.8-10.8)
[2023-11-20 08:16] LABS: Albumin Level 2.6 gm/dl (3.4-5.0); Bilirubin Direct 0.4 mg/dl (0-0.2); Bilirubin,Total 1.1 mg/dl (0.2-1.0); Total Protein 5.4 gm/dl (6.0-8.3)
[2023-11-20 09:20] LABS: Anaplasmosis Smear(Rpt to DOH) Pos for Anaplasma
[2023-11-20 09:27] LABS: Basophils # (auto) 0.01 K/uL (0.00-0.20); Basophils % (auto) 0.3 %; Immature Granulocytes # (auto) 0.02 K/uL (0.01-0.20); Immature Granulocytes % (auto) 0.5 %; Lymphocytes % (auto) 10.7 %; Monocytes # (auto) 0.18 K/uL (0.11-0.59); Monocytes % (auto) 4.8 %; Neutrophils # (auto) 3.14 K/uL (1.40-6.50); Polychromasia 1+
[2023-11-20 09:48] LABS: Neutrophils % (auto) 83.7 %
[2023-11-20] MEDS: DOXYCYCLINE HYCLATE 100 MG CAP PO SCH (09:59)
--- NOTE | 2023-11-20 15:31 | Billing Data ---
Date of Service November 20, 2023 Coding Level of Care Code 08949 SUB INP/OBS CARE MIN
[2023-11-21 07:25] LABS: Hematocrit (blood only) 33.6 % (37.0-47.0); Hemoglobin 10.8 g/dl (12.0-16.0); Mean Corpuscular Hemoglobin 29.6 pg (25.0-34.0); Mean Corpuscular Hgb Conc 32.1 g/dL (32.0-36.0); Mean Corpuscular Volume 92.1 fL (80.0-100.0); Mean Platelet Volume 11.9 fL (9.4-12.4); Platelet Count 136 K/uL (130-400); RDW Coefficient of Variation 15.1 % (11.5-14.5); RDW Standard Deviation 51.3 fL (36.4-46.3); Red Blood Count 3.65 M/uL (4.20-5.40)
[2023-11-21 07:44] LABS: BUN Creatinine Ratio 26.4 (10-20); Calcium 8.4 mg/dl (8.6-10.3); Creatinine Clr Calc Pharmacy 91.3 ml/min; Est GFR (African American) 103.9 ml/min; Est GFR (Non-African American) 89.7 ml/min; Potassium 3.3 mmol/L (3.5-5.1)
[2023-11-21 08:09] LABS: ALC (manual) 1.12 K/uL (1.2-3.4); Lymphocytes # (manual) 0.67 K/uL (1.2-3.4); Lymphocytes % (manual) 24 %; Monocytes # (manual) 0.08 K/uL (0.11-0.59); Monocytes % (manual) 3 %; Neutrophils % (manual) 57 %; Reactive Lymphocytes # (manual) 0.45 K/uL; Reactive Lymphocytes % (manual) 16 %
--- NOTE | 2023-11-21 17:21 | Hospitalist Progress Note ---
Date of Service November 21, 2023 Assessment & Plan (1) Diarrhea: Plan: - Patient presented to ED with nausea and vomiting. Symptoms have resolved with no complaint of nausea on regular diet. - Anaplasma smear positive - Likely food poisoning vs anaplasma - On day 2/10 of doxycycline 100mg PO BID - Continue regular [id number] diet as tolerated - Zofran PRN (2) Aspiration pneumonia: Plan: - Pt now afebrile, no cough, SOB, or chest pain. - Fine crackles appreciated in bilateral lower lobes. Shallow breathing pattern observed - Pt maintaining oxygen saturation above 90% on 2L - Continue Doxycycline 100mg PO BID - Educated regarding use of incentive spirometer at least 3 times per day and reviewed proper use. Pt demonstrated understanding - Duonebs and albulterol PRN Plan Cholelithiasis - No signs of cholecystitis on US - Could consider outpatient management if patient becomes symptomatic. Atrial fibrillation with RVR: Continue Eliquis and rate control with metoprolol. Will monitor on tele. Gastroesophageal reflux disease: Continue with pantoprazole 40 mg BID IV. Can resume home dosing upon discharge. Hypothyroidism: continue levothyroxine HTN: hold lisinopril for now as BPs soft Anxiety: continue Lexapro and Wellbutrin Asthma: continue home budesonide, montelukast Admission and Anticipated Discharge Date Admission Date: November 19, 2023 Supervising Physician Co-Signing Physician Notes Attending attestation Pt seen and examined in concert with Dr. Myers. In agreement with the documented findings as noted in the resident documentation with any exceptions or additions as noted here. Resting comfortably in bed without acute complaint. On examination, S1/S2 nl RRR no MCG. CTAB. Abd NT/ND BS+ve Anaplasmosis and concern for aspiration PNA - complete course of augmentin and doxycycline for appropriate coverage. Monitor O2 use, taper where able. No indication for ongoing hospital O2, 2 step rec'd for home O2. Else see resident documentation as noted. Subjective Feeling alright today. Reports being able to walk around fine, no problems urinating, still having multiple BMs, had some difficulty w diet bc left her teeth at home. Denies SOB, cough, CP, YOUNG, dizziness, n/v, muscle or joint aches. Review of Systems 2 Review of Systems: Per HPI. Physical Exam 2 Physical Exam: Constitutional: NAD, AOx3, WD/WN HEENT: NCAT, PERRL, MMM CV: RRR, no m/r/g, S1/S2 normal, Resp: b/l lower lung crackles, symmetrical chest rise, breathing non-labored MSK: Full ROM, no gross deformities Skin: Warm, dry, pink, no rashes or lesions Psych: Mood-affect congruent. Speech pace and content normal. Results & Data Results & Data Vital Signs (Past 12 Hours) Vital Signs Temp Pulse Pulse Resp BP Pulse Ox O2 Del Method 11/21/23 15:31 36.2 C L 107 H 20 100/69 95 Nasal Cannula 11/21/23 13:34 92 Nasal Cannula 11/21/23 13:25 88 L Room Air 11/21/23 13:05 88 11/21/23 11:18 36.8 C 90 20 101/68 94 Nasal Cannula 11/21/23 08:38 36.8 C 112 H 20 106/77 94 Nasal Cannula 11/21/23 08:18 Nasal Cannula O2 Flow Rate 11/21/23 15:31 2 11/21/23 13:34 1 11/21/23 13:25 11/21/23 13:05 11/21/23 11:18 2 11/21/23 08:38 3 11/21/23 08:18 2 Laboratory Results 11/21/23 06:17 11/21/23 06:17 Resident Activity Tracking Resident Involvement: Resident Care Provided Care Provided: Adult Hospital Medicine
--- NOTE | 2023-11-22 07:34 | Discharge Summary ---
Date of Service November 23, 2023 Admission HPI Per Admitting Provider 78 y/o with a PMHx of a fib on Eliquis, asthma, GERD, hypothyroidism, HTN presents for evaluation of GI concerns. Patient with n/v/diarrhea of 4 days duration. Generally feeling unwell and not herself. Patient with some fevers and abdominal cramping. No SOB or CP. No blood in the vomit or stool. Typically with regular BMs. Admission Exam Per Admitting Provider Gen: well appearing patient in NAD HEENT: AT NC MMM NC in place, breathing comfortably Resp: CTAB no wheezing no increased work of breathing CV: irregularly irregular rhythm, no m/r/g clinically well perfused, no BLE edema Abd: soft, non-tender, non-distended negative Orozco's +BS MSK: no obvious deformities Skin: no rashes or bruising Neuro: alert and oriented Psych: appropriate mood and affect Principal Diagnosis Anaplasmosis, possible aspiration PNA Discharge Exam Constitutional: NAD, AOx3, WD/WN HEENT: NCAT, PERRL, MMM CV: RRR, no m/r/g, S1/S2 normal, Resp: ctab, symmetrical chest rise, breathing non-labored MSK: Full ROM, no gross deformities Skin: Warm, dry, pink, no rashes or lesions Discharge Data Allergies Allergy/AdvReac Type Severity Reaction Status Date / Time hornet venom Allergy Severe ANAPHYLAXIS Verified 08/29/23 15:16 Sulfa (Sulfonamide Allergy Unknown UNKNOWN Verified 08/29/23 15:16 Antibiotics) bee venom protein (honey bee) AdvReac Severe Anaphylaxis--YELLOW Verified 08/29/23 15:16 JACKETS & HORNETS Consultations 11/17/23 00:22 ED Decision to Admit Stat Ordered Studies 11/22/23 08:36 11/22/23 08:36 11/16/23 20:05 CT abd pelvis IV con only Stat 11/16/23 22:55 US gallbladder Stat Hospital Course (1) Aspiration pneumonia: (2) Hypoxia: (3) Anaplasmosis: (4) Diarrhea: Plan Acute hypoxic respiratory failure: - Possibly aspiration PNA - Started on augmentin 875mg BID; took last dose 10/ PM - Also covered by doxy used for anaplasmosis - No SOB, cough, or chest pain. Afebrile and maintaining O2 sat >90% on 2L nasal cannula. - Advised use of incentive spirometer 3x per day and reviewed proper use. Pt demonstrated understanding - RT 2-step assessment and nocturnal pulse ox study on 11/21: pt qualified for home O2, 2L, at night Anaplasmosis - 11/19 smear positive - started on doxycycline 100mg BID - currently day 05/31; last dose 11/28 PM Diarrhea: - Sx improved since admission - Possibly food poisoning vs anaplasmosis - Also covered by doxy Cholelithiasis: No signs of cholecystitis on US; consider outpatient management symptoms arise Afib with RVR: continue Eliquis & metoprolol GERD: continue pantoprazole Hypothyroidism: continue levothyroxine HTN: resume home BP meds Anxiety: continue lexapro & wellbutrin Asthma: continue budesonide & montelukast Total Time Total Time Spent Total Time Spent (In Minutes): See attending documentation Discharge Plan Discharge Items Patient Disposition: Home - Self-Care Reason For Visit: DIARRHEA Discharge Diagnosis: Anaplasmosis, possible aspiration pna Activity: Per Instructions section Non-emergency contact: Primary Care Provider Call non-emergency contact if: you have any medication questions, your symptoms worsen and your temperature is above 101 Follow-up/Referrals: Jhony Ramires III, CRNP [Primary Care Provider] - 11/28/23 4:00 pm Diet: Regular Diet Texture: Easy to Chew Addtl Attending Provider Instructions: You were admitted to the hospital for GI distress, and then you had some fevers and low oxygen saturation. You were treated with antibiotics and supplemental oxygen. Acute hypoxic respiratory failure: - Possibly aspiration PNA - Started on augmentin 875mg BID; took last dose 11/21 PM - Also covered by doxy used for anaplasmosis - No SOB, cough, or chest pain. Afebrile and maintaining O2 sat >90% on 2L nasal cannula. - Advised use of incentive spirometer 3x per day and reviewed proper use. Pt demonstrated understanding - RT 2-step assessment and nocturnal pulse ox study on 11/21: qualify for home O2, 2L, at night Anaplasmosis - 11/19 smear positive - started on doxycycline 100mg BID; last dose to be 11/28 PM Diarrhea: - Sx improved since admission - Possibly food poisoning vs anaplasmosis - Covered by doxy Afib with RVR: continue Eliquis & metoprolol GERD: continue pantoprazole Hypothyroidism: continue levothyroxine HTN: resume home BP meds Anxiety: continue lexapro & wellbutrin Asthma: continue budesonide & montelukast A discharge summary will be sent to your primary care physician to ensure continuity of care. Your medication list has been reviewed and reconciled upon discharge and an updated list of all your medications is included with your hospital discharge paperwork. Please review this list closely, and make note of any changes. We have added the following: Doxycycline 100mg twice daily for 6 more days, ending 11/28 evening Make a follow-up appointment with your PCP within the next week. It is very important that you follow up with them shortly after discharge from the hospital. Call your PCP if you have any questions about your medications or experience new or worsening symptoms. Call 911 or go to the ER if you experience any of the following: Sudden, severe abdominal pain or nausea/vomiting Severe chest pain, or chest pain that radiates (moves) to your jaw or arm Sudden, severe shortness of breath or difficulty breathing Thank you for allowing us to participate in your care. Pending Studies at Discharge: No Stand-Alone Forms: My [facility] [employer], Smoking Cessation Medications and DC Order Prescriptions: New doxycycline hyclate 100 mg capsule 100 mg PO BID 6 Days Qty: 12 0RF Continued calcium carbonate 600 mg calcium (1,500 mg) tablet 600 mg PO DAILY Patient Comments: Per pt, it is PRN levothyroxine 112 mcg tablet 112 mcg PO DAILYBB Qty: 90 3RF metoprolol tartrate 100 mg tablet 100 mg PO BID Qty: 180 3RF Eliquis 5 mg tablet 5 mg PO BID Qty: 180 3RF bupropion HCl 150 mg tablet sustained-release 12 hr 150 mg PO BID Qty: 180 3RF escitalopram oxalate 10 mg tablet 10 mg PO DAILY Qty: 90 3RF omeprazole 20 mg capsule,delayed release(DR/EC) 20 mg PO DAILY Qty: 90 3RF lisinopril 5 mg tablet 5 mg PO DAILY Qty: 90 3RF cholecalciferol (vitamin D3) 5,000 unit capsule 5,000 units PO DAILY Pulmicort Flexhaler 180 mcg/actuation aerosol powdr breath activated 2 inh INH BID Qty: 1 11RF Rx Instructions: WITH A RINSE OF MOUTH AFTERWARDS epinephrine 0.3 mg/0.3 mL auto-injector 0.3 mg IM Q10M PRN (Reason: anaphylaxis) Qty: 2 3RF multivitamin Tablet 1 tab PO DAILY diclofenac sodium 1 % Gel 4 g TOPICAL QID PRN (Reason: Pain) montelukast 10 mg tablet 10 mg PO HS Discharge Orders: Discharge Order (Routine); Ordered 11/23/23 Ordered By: Cy Myers Admission Data Admit Date/Time: 11/19/23 13:41 Attending Provider: Jose Carlos Paz Admit Provider: Tala Bethea Primary Care Provider: Jhony Ramires III Other Providers: Manfred Padron Other Interventions: Discharge Summary Assessment (RN) Last Done: 11/23/23 13:57 Supervising Physician Co-Signing Physician Notes Attending attestation Pt seen and examined in concert with Dr. Myers. In agreement with the documented findings as noted in the resident documentation with any exceptions or additions as noted here. Resting comfortably in bed without acute complaint. On examination, S1/S2 nl RRR no MCG. CTAB. Abd NT/ND BS+ve Acute hypoxic respiratory failure in the setting of aspiration PNA/pneumonitis - no indication for ambulatory O2, +ve nocturnal O2 so recommend O2 supplementation qHS Anaplasmosis and concern for aspiration PNA - completed course of augmentin. Continue doxycycline to complete course. Monitor O2 use, taper where able. Else see resident documentation as noted. Total attending physician time spent with this patient's care on the day of discharge: 35 minutes. Resident Activity Tracking Resident Involvement: Resident Care Provided Care Provided: Adult Hospital Medicine
[2023-11-22 09:15] LABS: Hematocrit (blood only) 35.4 % (37.0-47.0); Hemoglobin 11.8 g/dl (12.0-16.0); Mean Corpuscular Hemoglobin 29.8 pg (25.0-34.0); Mean Corpuscular Hgb Conc 33.3 g/dL (32.0-36.0); Mean Corpuscular Volume 89.4 fL (80.0-100.0); Mean Platelet Volume 11.3 fL (9.4-12.4); Platelet Count 232 K/uL (130-400); RDW Coefficient of Variation 15.1 % (11.5-14.5); RDW Standard Deviation 50.1 fL (36.4-46.3); Red Blood Count 3.96 M/uL (4.20-5.40); White Blood Count 3.99 K/ul (4.8-10.8)
[2023-11-22 09:27] LABS: BUN Creatinine Ratio 28.3 (10-20); Calcium 8.9 mg/dl (8.6-10.3); Creatinine Clr Calc Pharmacy 91.3 ml/min; Est GFR (African American) 103.9 ml/min; Est GFR (Non-African American) 89.7 ml/min; Potassium 3.3 mmol/L (3.5-5.1)
[2023-11-22 10:06] LABS: ALC (manual) 1.68 K/uL (1.2-3.4); ANC (manual) 2.07 K/uL (1.4-6.5); Eosinophils # (manual) 0.12 K/uL (0-0.50); Eosinophils % (manual) 3 %; Lymphocytes # (manual) 0.76 K/uL (1.2-3.4); Lymphocytes % (manual) 19 %; Monocytes # (manual) 0.12 K/uL (0.11-0.59); Monocytes % (manual) 3 %; Neutrophils # (manual) 2.07 K/uL (1.40-6.50); Neutrophils % (manual) 52 %; Reactive Lymphocytes # (manual) 0.92 K/uL; Reactive Lymphocytes % (manual) 23 %
--- NOTE | 2023-11-22 15:09 | Hospitalist Progress Note ---
Date of Service November 22, 2023 Assessment & Plan (1) Aspiration pneumonia: (2) Hypoxia: (3) Anaplasmosis: (4) Diarrhea: Plan Acute hypoxic respiratory failure: - Possibly aspiration PNA - Started on augmentin 875mg BID; last dose 11/21 PM - No SOB, cough, or chest pain. Afebrile and maintaining O2 sat >90% on 1-3L nasal cannula. - Advised use of incentive spirometer during every commercial break, and reviewed proper use. Pt demonstrated understanding - Did not qualify for home oxygen per RT assessment on 11/21; they recommended overnight pulse ox study Anaplasmosis - 11/19 smear positive - started on doxycycline 100mg BID - currently day 04/30; last dose 11/28 PM Diarrhea: - Sx improved since admission - Possibly food poisoning vs anaplasmosis - Covered by doxy Cholelithiasis: No signs of cholecystitis on US; consider outpatient management symptoms arise Afib with RVR: continue Eliquis & metoprolol GERD: continue pantoprazole Hypothyroidism: continue levothyroxine HTN: resume home BP meds Anxiety: continue lexapro & wellbutrin Asthma: continue budesonide & montelukast Admission and Anticipated Discharge Date Admission Date: November 19, 2023 Supervising Physician Co-Signing Physician Notes Attending attestation Pt seen and examined in concert with Dr. Myers. In agreement with the documented findings as noted in the resident documentation with any exceptions or additions as noted here. Resting comfortably in bed without acute complaint. On examination, S1/S2 nl RRR no MCG. CTAB. Abd NT/ND BS+ve Acute hypoxic respiratory failure in the setting of aspiration PNA/pneumonitis - no indication for ambulatory O2, though RT recommedning nocturnal pulse O2, will obtain O/N tonight. Anaplasmosis and concern for aspiration PNA - complete course of augmentin and doxycycline for appropriate coverage. Monitor O2 use, taper where able. Else see resident documentation as noted. Subjective Feeling alright today. No problems ambulating, eating, drinking, urinating. Reports some diarrhea but improved throughout stay. Denies SOB, cough, CP, YOUNG, dizziness, n/v, muscle or joint aches. Review of Systems 2 Review of Systems: Per HPI. Physical Exam 2 Physical Exam: Constitutional: NAD, AOx3, WD/WN HEENT: NCAT, PERRL, MMM CV: RRR, no m/r/g, S1/S2 normal, Resp: ctab, symmetrical chest rise, breathing non-labored MSK: Full ROM, no gross deformities Skin: Warm, dry, pink, no rashes or lesions Psych: Mood-affect congruent. Speech pace and content normal. Results & Data Results & Data Vital Signs (Past 12 Hours) Vital Signs Temp Pulse Pulse Pulse Pulse Resp Resp 11/22/23 14:21 96 H 11/22/23 11:51 97 H 88 22 11/22/23 11:26 36.9 C 88 20 11/22/23 10:10 11/22/23 08:09 36.5 C 108 H 20 11/22/23 07:18 98 H 11/22/23 04:08 36.6 C 109 H 20 Resp BP BP Pulse Ox Pulse Ox Pulse Ox O2 Del Method 11/22/23 14:21 11/22/23 11:51 18 92 91 11/22/23 11:26 106/67 91 Nasal Cannula 11/22/23 10:10 Nasal Cannula 11/22/23 08:09 114/70 93 Nasal Cannula 11/22/23 07:18 11/22/23 04:08 91/59 L 92 Nasal Cannula O2 Flow Rate 11/22/23 14:21 11/22/23 11:51 11/22/23 11:26 2 11/22/23 10:10 1 11/22/23 08:09 2 11/22/23 07:18 11/22/23 04:08 2 Laboratory Results 11/22/23 08:36 11/22/23 08:36 Resident Activity Tracking Resident Involvement: Resident Care Provided Care Provided: Adult Hospital Medicine
[2023-11-23 07:51] VITALS: RESP 16
[2023-11-23] MEDS: INFLUENZA VACC TS2024-25(65y+)/PF (IIV3) 0.5mL Syr IM ONE (10:20)
[2023-11-23 11:23] VITALS: BP 129/71; PULSE 76; TEMP 97.7; O2SAT 96
[2023-11-23] MEDS: FAMOTIDINE 10 MG TABLET PO ONE (13:16)
== END 2023-11-23 14:22 | disposition home or self-care (01) | DRG 867 ==
LOC: ED 19:34 → 2N 19:34 → SUATTDRO 11-17 00:48 → 2N 11-17 01:36 → SUATTDRO 11-19 13:41
DX: Z79.890 Hormone replacement therapy; Z88.2 Allergy status to sulfonamides; I10 Essential (primary) hypertension; R19.7 Diarrhea, unspecified; Z79.01 Long term (current) use of anticoagulants; A79.82 Anaplasmosis [A. phagocytophilum]; F41.9 Anxiety disorder, unspecified; K80.20 Calculus of gallbladder without cholecystitis without obstruction; J45.909 Unspecified asthma, uncomplicated; J96.01 Acute respiratory failure with hypoxia; K21.9 Gastro-esophageal reflux disease without esophagitis; E03.9 Hypothyroidism, unspecified; I48.91 Unspecified atrial fibrillation; R09.02 Hypoxemia; J69.0 Pneumonitis due to inhalation of food and vomit